=== PATIENT | male | born 1975 | race Caucasian/White ===

== ENCOUNTER → 2022-06-07 12:42 | Outpatient (BNVA) | payer OTHER, SELFPAY | PROVIDERS: PCP Family Medicine; Visit Provider Student in an Organized Health Care Education/Training Program | DX: M17.11 Unilateral primary osteoarthritis, right knee (principal); M45.9 Ankylosing spondylitis of unspecified sites in spine | CPT/HCPCS: 20610; 99202 ==

== ENCOUNTER 2022-12-11 09:46 | Outpatient (AMB) | payer OTHER, SELFPAY ==
[2022-12-11 09:49] VITALS: BP 120/72; PULSE 83; TEMP 36.3; O2SAT 95; BMI 36.8
--- NOTE | 2022-12-11 09:49 | MHC.OFFVIS ---
Intake Vital Signs 12/11/22 09:49 Height 5 ft 10 in Weight 256 lb 6.362 oz BMI 36.8 BP 120/72 Blood Pressure Location Rt brachial Position Sitting Pulse 83 Pulse Source Pulse Oximeter Temp 97.3 F Temp Source Skin Pulse Oximetry (%) 95 Intake Visit Reasons: Ankylosing spondylitis Intake Note: trouble walking lately baby stepping pain in bl knees and feet. ? increased indomethacin Motion Graphics Designer Required: No Accompanied by: Self / Same As Patient Allergies dogs,dust,grass,cats Allergy (Unknown, Uncoded 12/11/22 09:50) Unknown Medication List - Last Reconciled 12/11/22 by Melissa Rodriguez MD adalimumab (Humira(CF) Pen) inject one - 40 mg/0.4 mL pen every 2 weeks subcut albuterol sulfate 90 mcg/actuation (ProAir HFA) 2 puffs inhalation Q6H PRN folic acid 1 mg PO DAILY indomethacin 50 mg PO BEDTIME latanoprost 0.005% 1 drp ophthalmic (eye) QPM lisinopril 10 mg PO DAILY mometasone-formoterol 200-5 mcg/actuation (Dulera) 2 puffs inhalation BID omeprazole 20 mg PO DAILY oxcarbazepine 600 mg PO BID quetiapine 400 mg PO BEDTIME sulfasalazine 1.5 grams (3 x 500 mg) PO BID trifluoperazine 5 mg PO BID HPI HPI Comments History of Present Illness Details 47-year-old male with HLA B27 positive spondyloarthropathy returns for follow-up. States that the right knee cortisone injection helped him for a few months then he started having recurrent knee pain. Currently is complaining of bilateral knee pain, worse with walking. Continues to take Humira every other week, sulfasalazine 3 tabs twice daily and indomethacin nightly. Initial history: This is a 46-year-old male with past medical history of schizoaffective disorder, psoriasis, bipolar disorder and HLA B27 positive spondyloarthropathy who presents for evaluation of spondyloarthropathy. Per patient the condition started around 2005. He was initially started on indomethacin and soon after sulfasalazine was added. Patient stated that Humira was added about 2 years ago with some improvement. He states that his main complaint is right knee pain gets recurrent knee pain and swelling. Has had knee intra-articular steroid injections in the past with some relief. He states that his toes are crooked and they are hammertoes. He was evaluated by sales record clerk and was told reconstruction can be done but he would have to be off his feet for about 3 months which is difficult for the patient to do. Also has history of psoriasis. Usually below his posterior hairline, behind his ears. Currently has a patch in his scalp that is sometimes itchy. [facility] Medical History Ankylosing spondylitis Asthma Bipolar 1 disorder Chronic alcoholism in remission Hx of cocaine abuse Hypertension snf current use of anticoagulant Nicotine dependence Obesity Psoriasis Schizoaffective disorder Surgical History H/O hemorrhoidectomy History of tonsillectomy Hx of colonoscopy Family History Mother Lung cancer Parkinsonism Father Diabetes Social History Household Members Other:: lives alone Housing: Apartment Alcohol intake: former Patient Tobacco Use Status: Former Tobacco user Years Smoked: quit 2017 e-Cigarette/Vaping Use: Never Used service: No Current occupational status: disabled Review of Systems [facility] [place] Reports back pain, Reports arthralgias and Reports joint swelling Physical Exam Vital Signs: Last Vital Signs Temp 97.3 F 12/11/22 09:49 Pulse 83 12/11/22 09:49 BP 120/72 12/11/22 09:49 Pulse Ox 95 12/11/22 09:49 BMI result Body Mass Index 36.8 Const General: cooperative, healthy appearing and comfortable Nutritional Appearance: obese Orientation/consciousness: patient oriented x3 Limitations: no limitations HEENT Head: Yes normocephalic and Yes atraumatic Resp Effort & Inspection: normal respiratory effort and able to speak in complete sentences Cardio Rate: regular rate GI Inspection: No distended Palpation (GI): Soft to palpation and nontender Neuro General: patient oriented x3 Extrem Other: Bilateral knee warmth, swelling and pain with full flexion worse on the right. Bilateral hammertoes Office Procedures Joint Injection/Drain Joint Injection/Drain Primary Site: right knee Secondary Site: left knee Prep: site was prepped using sterile technique Injected: 40 mg of and Kenalog Approach Used: medial parapatellar Procedure: The patient tolerated the procedure well Coding Details: With the patient's consent the right knee was prepped with ChloraPrep and alcohol. The skin was anesthetized with 2 cc of 1% lidocaine. The knee was then injected with 40 mg of triamcinolone. Then the left knee was prepped with ChloraPrep and alcohol. The skin was anesthetized with 2 cc of 1% lidocaine. The knee was then injected with 40 mg of triamcinolone. The patient tolerated both procedures with no immediate adverse effects. 45434 - Large joint Procedure code (CPT) selection complete Assessment & Plan Assessment & Plan (1) Ankylosing spondylitis: Comment: HLA B27 + Diagnosed 2005 Code(s): M45.9 - Ankylosing spondylitis of unspecified sites in spine Plan: This is a 47-year-old male with a past medical history of HLA B27 positive spondyloarthropathy who presents for for follow-up. Currently on Humira every other week, sulfasalazine 3 tabs twice daily and indomethacin nightly. He is having bilateral knee swelling today. With patient's consent both knees were injected with Kenalog today. Continue Humira 40 mg every other week, sulfasalazine 3 tabs Twice daily and increase indomethacin 50 mg twice daily Labs before next visit in 3 months (2) High risk medication use: Code(s): Z79.899 - Other medical terminologist (current) drug therapy Plan: On sulfasalazine. Monitor labs regularly Plan I spent 26 minutes reviewing patient's chart, evaluating patient, ordering diagnostic workup, counseling patient and documenting in the chart Orders: Orders Comprehensive Met. Panel 3 Months M45.9 - Ankylosing spondylitis of unspecified sites in spine C Reactive Protein 3 Months M45.9 - Ankylosing spondylitis of unspecified sites in spine Complete Blood Count Auto Diff 3 Months M45.9 - Ankylosing spondylitis of unspecified sites in spine Erythrocyte Sedimentation Rate 3 Months M45.9 - Ankylosing spondylitis of unspecified sites in spine T Spot TB 3 Months Z11.7 - Encounter for testing for latent tuberculosis infection AMB Joint Injection/Aspiration Today M17.0 - Bilateral primary osteoarthritis of knee Medications: Changed From indomethacin 50 mg PO BEDTIME 30 caps 2RF To indomethacin 50 mg PO BID 60 caps 2RF Coding Level of Care Code Est Pt Level 4 (02146) Diagnoses Ankylosing spondylitis M45.9 High risk medication use Z79.899 CPT Codes Coding - 97477 Large joint: 24874 - Large joint ([id number])
== END 2022-12-11 10:52 | disposition home or self-care (01) ==
PROVIDERS: Visit Provider Student in an Organized Health Care Education/Training Program
DX: M45.9 Ankylosing spondylitis of unspecified sites in spine (principal); Z79.899 Other long term (current) drug therapy; M17.0 Bilateral primary osteoarthritis of knee
CPT/HCPCS: 20610; 99214

== ENCOUNTER → 2022-12-11 09:46 | Outpatient (BNVA) | payer OTHER, SELFPAY | PROVIDERS: Visit Provider Student in an Organized Health Care Education/Training Program | DX: M54.9 Dorsalgia, unspecified (principal); Z79.899 Other long term (current) drug therapy | CPT/HCPCS: 20610; 99212 ==

== ENCOUNTER 2023-03-14 12:52 | Outpatient (AMB) | payer OTHER, SELFPAY ==
[2023-03-14 12:56] VITALS: BP 112/70; PULSE 111; TEMP 36.2; O2SAT 96; BMI 35.7
--- NOTE | 2023-03-14 12:56 | MHC.OFFVIS ---
Intake Vital Signs 03/14/23 12:56 Height 5 ft 10 in Weight 248 lb 10.903 oz BMI 35.7 BP 112/70 Blood Pressure Location Rt brachial Position Sitting Pulse 111 H Pulse Source Pulse Oximeter Temp 97.2 F Temp Source Skin Pulse Oximetry (%) 96 Intake Visit Reasons: Intake Note: Pt last seen 12/11/22, presents today for follow up and test results. Clinical Researcher Required: No Accompanied by: Self / Same As Patient Allergies dogs,dust,grass,cats Allergy (Unknown, Uncoded 03/14/23 12:58) Unknown Medication List - Last Reconciled 03/14/23 by Melissa Rodriguez MD adalimumab (Humira(CF) Pen) inject one - 40 mg/0.4 mL pen every 2 weeks subcut albuterol sulfate 90 mcg/actuation (ProAir HFA) 2 puffs inhalation Q6H PRN folic acid 1 mg PO DAILY indomethacin 50 mg PO BID latanoprost 0.005% 1 drp ophthalmic (eye) QPM lisinopril 10 mg PO DAILY mometasone-formoterol 200-5 mcg/actuation (Dulera) 2 puffs inhalation BID omeprazole 20 mg PO DAILY oxcarbazepine 600 mg PO BID quetiapine 400 mg PO BEDTIME sulfasalazine 1.5 grams (3 x 500 mg) PO BID trifluoperazine 5 mg PO BID HPI HPI Comments History of Present Illness Details 47-year-old male with HLA B27 positive spondyloarthropathy returns for follow-up. States that he is doing well overall with regards to his joint pain. He is having bilateral knee swelling but it does not hurt much. States that he does not feel like he needs knee injections today. He states that he has been having some problems with his addiction recently. States that he is compliant with Humira every 2 weeks but sometimes misses the sulfasalazine and indomethacin. Initial history: This is a 46-year-old male with past medical history of schizoaffective disorder, psoriasis, bipolar disorder and HLA B27 positive spondyloarthropathy who presents for evaluation of spondyloarthropathy. Per patient the condition started around 2005. He was initially started on indomethacin and soon after sulfasalazine was added. Patient stated that Humira was added about 2 years ago with some improvement. He states that his main complaint is right knee pain gets recurrent knee pain and swelling. Has had knee intra-articular steroid injections in the past with some relief. He states that his toes are crooked and they are hammertoes. He was evaluated by graphic pre press trades worker and was told reconstruction can be done but he would have to be off his feet for about 3 months which is difficult for the patient to do. Also has history of psoriasis. Usually below his posterior hairline, behind his ears. Currently has a patch in his scalp that is sometimes itchy. 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 Ankylosing spondylitis Asthma Hypertension Chronic alcoholism in remission Bipolar 1 disorder Schizoaffective disorder Obesity Surgical History H/O hemorrhoidectomy History of tonsillectomy Hx of colonoscopy Family History Mother Lung cancer Parkinsonism Father Diabetes Social History Household Members Other:: lives alone Housing: Apartment Alcohol intake: former Patient Tobacco Use Status: Former Tobacco user Years Smoked: quit 2017 e-Cigarette/Vaping Use: Never Used Substance Use Type: Crack/Cocaine service: No Current occupational status: disabled Review of Systems [facility] [place] Reports arthralgias and Reports joint swelling Physical Exam Vital Signs: Last Vital Signs Temp 97.2 F 03/14/23 12:56 Pulse 111 H 03/14/23 12:56 BP 112/70 03/14/23 12:56 Pulse Ox 96 03/14/23 12:56 BMI result Body Mass Index 35.7 Const General: cooperative, healthy appearing and comfortable Nutritional Appearance: obese Orientation/consciousness: patient oriented x3 Limitations: no limitations HEENT Head: Yes normocephalic and Yes atraumatic Resp Effort & Inspection: normal respiratory effort and able to speak in complete sentences Cardio Rate: regular rate GI Inspection: No distended Palpation (GI): Soft to palpation and nontender Neuro General: patient oriented x3 Extrem Other: Bilateral knee warmth, swelling and pain with full flexion Bilateral hammertoes Assessment & Plan Assessment & Plan (1) Ankylosing spondylitis: Comment: HLA B27 + Diagnosed 2005 Code(s): M45.9 - Ankylosing spondylitis of unspecified sites in spine Qualifiers: Ankylosing spondylitis location: multiple sites in spine Qualified Code(s): M45.0 - Ankylosing spondylitis of multiple sites in spine Plan: This is a 47-year-old male with a past medical history of HLA B27 positive spondyloarthropathy who presents for for follow-up. Currently on Humira every other week, sulfasalazine 3 tabs twice daily and indomethacin nightly. On exam he continues to have bilateral knee swelling. Inflammatory markers are elevated. Will need to advance DMARDs. Advance Humira to 40 mg every week. Continue with sulfasalazine 3 tabs Twice daily and indomethacin 50 mg twice daily Labs before next visit in 3 months (2) High risk medication use: Code(s): Z79.899 - Other jail (current) drug therapy Plan: On sulfasalazine. Monitor labs regularly Plan I spent 26 minutes reviewing patient's chart, evaluating patient, ordering diagnostic workup, counseling patient and documenting in the chart Orders: Orders Complete Blood Count Auto Diff 3 Months M45.9 - Ankylosing spondylitis of unspecified sites in spine Comprehensive Met. Panel 3 Months M45.9 - Ankylosing spondylitis of unspecified sites in spine C Reactive Protein 3 Months M45.9 - Ankylosing spondylitis of unspecified sites in spine Erythrocyte Sedimentation Rate 3 Months M45.9 - Ankylosing spondylitis of unspecified sites in spine Medications: Refilled sulfasalazine give with food (meal/snack) 1.5 grams (3 x 500 mg) PO BID 540 tabs 1RF Coding Level of Care Code Est Pt Level 4 (19393) Diagnoses Ankylosing spondylitis of multiple sites in spine M45.0 Ankylosing spondylitis location: multiple sites in spine High risk medication use Z79.899
== END 2023-03-14 13:30 | disposition home or self-care (01) ==
PROVIDERS: PCP Family Medicine; Referring Provider Family Medicine; Visit Provider Student in an Organized Health Care Education/Training Program
DX: M45.0 Ankylosing spondylitis of multiple sites in spine (principal); Z79.899 Other long term (current) drug therapy
CPT/HCPCS: 99214

== ENCOUNTER → 2023-03-14 12:52 | Outpatient (BNVA) | payer OTHER, SELFPAY | PROVIDERS: PCP Family Medicine; Referring Provider Family Medicine; Visit Provider Student in an Organized Health Care Education/Training Program | DX: M45.0 Ankylosing spondylitis of multiple sites in spine (principal); Z79.899 Other long term (current) drug therapy | CPT/HCPCS: 99212 ==

== ENCOUNTER 2023-07-01 14:15 | Outpatient (AMB) | payer OTHER, SELFPAY ==
[2023-07-01 14:41] VITALS: BP 124/68; PULSE 87; TEMP 36.3; O2SAT 95; BMI 37.5
--- NOTE | 2023-07-01 14:41 | MHC.OFFVIS ---
Intake Vital Signs 07/01/23 14:41 Height 5 ft 10 in Weight 261 lb 3.964 oz BMI 37.5 BP 124/68 Blood Pressure Location Lt brachial Position Sitting Pulse 87 Pulse Source Pulse Oximeter Temp 97.4 F Temp Source Skin Pulse Oximetry (%) 95 Oxygen Delivery Method Room Air Intake Visit Reasons: Intake Note: Patient last seen 03/14/23 presents today for follow up and test results. Reports he was in detox then had covid. The last time he used Humira was 05/24. 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 Worker Required: No Accompanied by: Self / Same As Patient Allergies dogs,dust,grass,cats Allergy (Unknown, Uncoded 07/01/23 14:44) Unknown Medication List - Last Reconciled 07/01/23 by Melissa Rodriguez MD albuterol sulfate 90 mcg/actuation (ProAir HFA) 2 puffs inhalation Q6H PRN folic acid 1 mg PO DAILY Humira(CF) Pen (adalimumab) 40 mg (0.4 mL) subcut QWEEK NS indomethacin 50 mg PO BID latanoprost 0.005% 1 drp ophthalmic (eye) QPM lisinopril 10 mg PO DAILY mometasone-formoterol 200-5 mcg/actuation (Dulera) 2 puffs inhalation BID omeprazole 20 mg PO DAILY oxcarbazepine 600 mg PO BID quetiapine 400 mg PO BEDTIME sulfasalazine 1.5 grams (3 x 500 mg) PO BID trifluoperazine 5 mg PO BID HPI HPI Comments History of Present Illness Details 47-year-old male with HLA B27 positive spondyloarthropathy returns for follow-up. Patient states that his last Humira dose was 05/24/2023. He was doing the Humira injections weekly. He had been doing fairly well until 05/24. Patient had a relapse of cocaine use, he went into detox, then had COVID infection followed by COVID vaccination. Has been taking the sulfasalazine and indomethacin regularly. States that he feels muscle cramping in his lower back whenever he reaches to touch his feet. Initial history: This is a 46-year-old male with past medical history of schizoaffective disorder, psoriasis, bipolar disorder and HLA B27 positive spondyloarthropathy who presents for evaluation of spondyloarthropathy. Per patient the condition started around 2005. He was initially started on indomethacin and soon after sulfasalazine was added. Patient stated that Humira was added about 2 years ago with some improvement. He states that his main complaint is right knee pain gets recurrent knee pain and swelling. Has had knee intra-articular steroid injections in the past with some relief. He states that his toes are crooked and they are hammertoes. He was evaluated by blacksmith assistant and was told reconstruction can be done but he would have to be off his feet for about 3 months which is difficult for the patient to do. Also has history of psoriasis. Usually below his posterior hairline, behind his ears. Currently has a patch in his scalp that is sometimes itchy. 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 Ankylosing spondylitis Asthma Hypertension Chronic alcoholism in remission Bipolar 1 disorder Schizoaffective disorder Obesity Surgical History H/O hemorrhoidectomy History of tonsillectomy Hx of colonoscopy Family History Mother Lung cancer Parkinsonism Father Diabetes Social History Household Members Other:: lives alone Housing: Apartment Alcohol intake: former Patient Tobacco Use Status: Former Tobacco user Years Smoked: quit 2017 e-Cigarette/Vaping Use: Never Used Substance Use Type: Crack/Cocaine service: No Current occupational status: disabled Review of Systems [facility] Reports arthralgias, Denies joint swelling, Reports muscle cramps and Reports stiffness Physical Exam Vital Signs: Last Vital Signs Temp 97.4 F 07/01/23 14:41 Pulse 87 07/01/23 14:41 BP 124/68 07/01/23 14:41 Pulse Ox 95 07/01/23 14:41 Oxygen Delivery Method Room Air 07/01/23 14:41 BMI result Body Mass Index 37.5 Const General: cooperative, healthy appearing and comfortable Nutritional Appearance: obese Orientation/consciousness: patient oriented x3 Limitations: no limitations HEENT Head: Yes normocephalic and Yes atraumatic Resp Effort & Inspection: normal respiratory effort and able to speak in complete sentences Cardio Rate: regular rate GI Inspection: No distended Palpation (GI): Soft to palpation and nontender Neuro General: patient oriented x3 Extrem Other: No knee tenderness or swelling bilaterally Negative straight leg raise test bilaterally Negative SALOMÓN test bilaterally Bilateral hammertoes Assessment & Plan Assessment & Plan (1) Ankylosing spondylitis: Comment: HLA B27 + Diagnosed 2005 Code(s): M45.9 - Ankylosing spondylitis of unspecified sites in spine Qualifiers: Ankylosing spondylitis location: multiple sites in spine Qualified Code(s): M45.0 - Ankylosing spondylitis of multiple sites in spine Plan: This is a 47-year-old male with HLA B27 positive spondyloarthropathy who presents for for follow-up. Patient's last Humira dose was 05/24/2023 as he went into detox then had COVID infection followed by vaccination. There are no swollen joints today. Inflammatory markers trending down Restart Humira to 40 mg every week. Continue with sulfasalazine 3 tabs Twice daily and indomethacin 50 mg twice daily Labs before next visit in 3 months (2) High risk medication use: Code(s): Z79.899 - Other longterm (current) drug therapy Plan: On sulfasalazine. Monitor labs regularly Plan I spent 26 minutes reviewing patient's chart, evaluating patient, ordering diagnostic workup, counseling patient and documenting in the chart Orders: Orders Complete Blood Count Auto Diff 3 Months M45.9 - Ankylosing spondylitis of unspecified sites in spine Comprehensive Met. Panel 3 Months M45.9 - Ankylosing spondylitis of unspecified sites in spine C Reactive Protein 3 Months M45.9 - Ankylosing spondylitis of unspecified sites in spine Erythrocyte Sedimentation Rate 3 Months M45.9 - Ankylosing spondylitis of unspecified sites in spine Coding Level of Care Code Est Pt Level 4 (48979) Diagnoses Ankylosing spondylitis of multiple sites in spine M45.0 Ankylosing spondylitis location: multiple sites in spine High risk medication use Z79.899
== END 2023-07-01 15:07 | disposition home or self-care (01) ==
PROVIDERS: PCP Family Medicine; Visit Provider Student in an Organized Health Care Education/Training Program
DX: M45.0 Ankylosing spondylitis of multiple sites in spine (principal); Z79.899 Other long term (current) drug therapy
CPT/HCPCS: 99214

== ENCOUNTER → 2023-07-01 14:15 | Outpatient (BNVA) | payer OTHER, SELFPAY | PROVIDERS: PCP Family Medicine; Visit Provider Student in an Organized Health Care Education/Training Program | DX: M45.0 Ankylosing spondylitis of multiple sites in spine (principal); Z79.899 Other long term (current) drug therapy | CPT/HCPCS: 99212 ==

== ENCOUNTER 2023-09-23 13:59 | Outpatient (AMB) | payer OTHER, SELFPAY ==
--- NOTE | 2023-09-23 14:10 | MHC.OFFVIS ---
Vital Signs 09/23/23 14:20 Height 5 ft 10 in Weight 267 lb 3.204 oz BMI 38.3 BP 124/72 Blood Pressure Location Rt brachial Position Sitting Pulse 86 Pulse Source Pulse Oximeter Pulse Oximetry (%) 96 Oxygen Delivery Method Room Air Intake Visit Reasons: Intake Note: Patient last seen 07/01/23 presents today for follow up and test results. Pad Machine Operator Required: No Accompanied by: Self / Same As Patient Allergies dogs,dust,grass,cats Allergy (Unknown, Uncoded 09/23/23 14:20) Unknown Medication List - Last Reconciled 09/23/23 by Melissa Rodriguez MD albuterol sulfate 90 mcg/actuation (ProAir HFA) 2 puffs inhalation Q6H PRN folic acid 1 mg PO DAILY Humira(CF) Pen (adalimumab) 40 mg (0.4 mL) subcut QWEEK NS indomethacin 50 mg PO BID latanoprost 0.005% 1 drp ophthalmic (eye) QPM lisinopril 10 mg PO DAILY mometasone-formoterol 200-5 mcg/actuation (Dulera) 2 puffs inhalation BID omeprazole 20 mg PO DAILY oxcarbazepine 600 mg PO BID quetiapine 400 mg PO BEDTIME sulfasalazine 1.5 grams (3 x 500 mg) PO BID trifluoperazine 5 mg PO BID HPI Comments Details: 47-year-old male with HLA B27 positive spondyloarthropathy returns for follow-up. He is compliant with Humira weekly, sulfasalazine 3 g a day and indomethacin 50 mg Twice daily. States that he is doing quite well overall. His knees are doing better. Denies any painful or swollen joints today. Initial history: This is a 46-year-old male with past medical history of schizoaffective disorder, psoriasis, bipolar disorder and HLA B27 positive spondyloarthropathy who presents for evaluation of spondyloarthropathy. Per patient the condition started around 2005. He was initially started on indomethacin and soon after sulfasalazine was added. Patient stated that Humira was added about 2 years ago with some improvement. He states that his main complaint is right knee pain gets recurrent knee pain and swelling. Has had knee intra-articular steroid injections in the past with some relief. He states that his toes are crooked and they are hammertoes. He was evaluated by horse breaker and was told reconstruction can be done but he would have to be off his feet for about 3 months which is difficult for the patient to do. Also has history of psoriasis. Usually below his posterior hairline, behind his ears. Currently has a patch in his scalp that is sometimes itchy. 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 Ankylosing spondylitis Asthma Hypertension Chronic alcoholism in remission Bipolar 1 disorder Schizoaffective disorder Obesity Surgical History H/O hemorrhoidectomy History of tonsillectomy Hx of colonoscopy Family History Mother Lung cancer Parkinsonism Father Diabetes Social History Household Members Other:: lives alone Housing: Apartment Alcohol intake: former Patient Tobacco Use Status: Former Tobacco user Years Smoked: quit 2017 e-Cigarette/Vaping Use: Never Used Substance Use Type: Crack/Cocaine service: No Current occupational status: disabled Review of Systems Musc Denies arthralgias, Denies joint swelling and Denies stiffness Physical Exam Vital Signs: Last Vital Signs Pulse 86 09/23/23 14:20 BP 124/72 09/23/23 14:20 Pulse Ox 96 09/23/23 14:20 Oxygen Delivery Method Room Air 09/23/23 14:20 BMI result Body Mass Index 38.3 Const General: cooperative, healthy appearing and comfortable Nutritional Appearance: obese Orientation/consciousness: patient oriented x3 Limitations: no limitations HEENT Head: Yes normocephalic and Yes atraumatic Resp Effort & Inspection: normal respiratory effort and able to speak in complete sentences Cardio Rate: regular rate GI Inspection: No distended Palpation (GI): Soft to palpation and nontender Neuro General: patient oriented x3 Extrem Other: Bilateral knee warmth but no tenderness or swelling bilaterally. Bilateral knee pain with full flexion and extension No active synovitis both hands and wrists Negative straight leg raise test bilaterally Negative SALOMÓN test bilaterally Bilateral hammertoes Assessment & Plan Assessment & Plan (1) Ankylosing spondylitis: Comment: HLA B27 + Diagnosed 2005 Code(s): M45.9 - Ankylosing spondylitis of unspecified sites in spine Category: Medical Qualifiers: Ankylosing spondylitis location: multiple sites in spine Qualified Code(s): M45.0 - Ankylosing spondylitis of multiple sites in spine Plan: This is a 47-year-old male with HLA B27 positive spondyloarthropathy who presents for for follow-up. On Humira 40 mg weekly, sulfasalazine 3 g daily and indomethacin 50 mg Twice daily. Doing quite well overall. Continue current meds Labs before next visit in 3 months (2) High risk medication use: Code(s): Z79.899 - Other terminal system operator (current) drug therapy Category: Medical Plan: On sulfasalazine. Monitor labs regularly (3) Bilateral primary osteoarthritis of knee: Code(s): M17.0 - Bilateral primary osteoarthritis of knee Category: Medical Plan: Patient used to get steroid injections every few months. Today his knees are doing better. Advised patient to call the office if his start to hurt. Plan I spent 26 minutes reviewing patient's chart, evaluating patient, ordering diagnostic workup, counseling patient and documenting in the chart Orders: Orders Complete Blood Count Auto Diff 3 Months M45.0 - Ankylosing spondylitis of multiple sites in spine Comprehensive Met. Panel 3 Months M45.0 - Ankylosing spondylitis of multiple sites in spine Erythrocyte Sedimentation Rate 3 Months M45.0 - Ankylosing spondylitis of multiple sites in spine C Reactive Protein 3 Months M45.0 - Ankylosing spondylitis of multiple sites in spine Coding Level of Care Code Est Pt Level 4 (69817) Diagnoses Ankylosing spondylitis of multiple sites in spine M45.0 Ankylosing spondylitis location: multiple sites in spine High risk medication use Z79.899 Bilateral primary osteoarthritis of knee M17.0
[2023-09-23 14:20] VITALS: BP 124/72; PULSE 86; O2SAT 96; BMI 38.3
== END 2023-09-23 14:50 | disposition home or self-care (01) ==
PROVIDERS: PCP Family Medicine; Visit Provider Student in an Organized Health Care Education/Training Program
DX: M45.0 Ankylosing spondylitis of multiple sites in spine (principal); Z79.899 Other long term (current) drug therapy; M17.0 Bilateral primary osteoarthritis of knee
CPT/HCPCS: 99214

== ENCOUNTER → 2023-09-23 13:59 | Outpatient (BNVA) | payer OTHER, SELFPAY | PROVIDERS: PCP Family Medicine; Visit Provider Student in an Organized Health Care Education/Training Program | DX: M45.0 Ankylosing spondylitis of multiple sites in spine (principal); M17.0 Bilateral primary osteoarthritis of knee; Z79.899 Other long term (current) drug therapy | CPT/HCPCS: 99212 ==

== ENCOUNTER 2023-12-30 14:02 | Outpatient (AMB) | payer OTHER, SELFPAY ==
--- NOTE | 2023-12-30 14:12 | MHC.OFFVIS ---
Vital Signs 12/30/23 14:17 Height 5 ft 10 in Weight 269 lb BMI 38.6 BP 132/80 Blood Pressure Location Lt brachial Position Sitting Pulse 94 Pulse Source Pulse Oximeter Pulse Oximetry (%) 99 Oxygen Delivery Method Room Air Intake Visit Reasons: Intake Note: Patient last seen by Doctor Melissa Rodriguez on 09/23/23. Patient presents today for follow up and test results. Allergies dogs,dust,grass,cats Allergy (Unknown, Uncoded 12/30/23 14:12) Unknown Medication List - Last Reconciled 12/30/23 by Melissa Rodriguez MD albuterol sulfate 90 mcg/actuation (ProAir HFA) 2 puffs inhalation Q6H PRN folic acid 1 mg PO DAILY Humira(CF) Pen (adalimumab) 0.4 mg (0.004 mL) subcut QWEEK NS indomethacin 50 mg PO BID latanoprost 0.005% 1 drp ophthalmic (eye) QPM lisinopril 10 mg PO DAILY mometasone-formoterol 200-5 mcg/actuation (Dulera) 2 puffs inhalation BID omeprazole 20 mg PO DAILY oxcarbazepine 600 mg PO BID quetiapine 400 mg PO BEDTIME sulfasalazine 1,500 mg (3 x 500 mg) PO BID trifluoperazine 5 mg PO BID HPI Comments Details: 48-year-old male with HLA B27 positive spondyloarthropathy returns for follow-up. He is compliant with Humira weekly, sulfasalazine 3 g a day and indomethacin 50 mg Twice daily. States that he is doing relatively well overall but his knees have been hurting and stiff recently. But they are not swollen. Requesting injections Initial history: This is a 46-year-old male with past medical history of schizoaffective disorder, psoriasis, bipolar disorder and HLA B27 positive spondyloarthropathy who presents for evaluation of spondyloarthropathy. Per patient the condition started around 2005. He was initially started on indomethacin and soon after sulfasalazine was added. Patient stated that Humira was added about 2 years ago with some improvement. He states that his main complaint is right knee pain gets recurrent knee pain and swelling. Has had knee intra-articular steroid injections in the past with some relief. He states that his toes are crooked and they are hammertoes. He was evaluated by housing liaison and was told reconstruction can be done but he would have to be off his feet for about 3 months which is difficult for the patient to do. Also has history of psoriasis. Usually below his posterior hairline, behind his ears. Currently has a patch in his scalp that is sometimes itchy. 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 Reports arthralgias, Denies joint swelling, Reports limited range of motion and Reports stiffness Physical Exam Vital Signs: Last Vital Signs Pulse 94 12/30/23 14:17 BP 132/80 12/30/23 14:17 Pulse Ox 99 12/30/23 14:17 Oxygen Delivery Method Room Air 12/30/23 14:17 BMI result Body Mass Index 38.6 Const General: cooperative, healthy appearing and comfortable Nutritional Appearance: obese Orientation/consciousness: patient oriented x3 Limitations: no limitations HEENT Head: Yes normocephalic and Yes atraumatic Resp Effort & Inspection: normal respiratory effort and able to speak in complete sentences Cardio Rate: regular rate GI Inspection: No distended Palpation (GI): Soft to palpation and nontender Neuro General: patient oriented x3 Extrem Other: Bilateral knee pain with full flexion and extension , no warmth or swelling, bilateral limited range of motion of knees No active synovitis both hands and wrists Negative straight leg raise test bilaterally Negative SALOMÓN test bilaterally Bilateral hammertoes Office Procedures Joint Injection/Aspiration Joint Injection/Aspiration Primary Site: right knee Secondary Site: left knee Prep: site was prepped using sterile technique and ethochloride spray was applied Injected: 40 mg of, Kenalog, with 1 mL of, 1% plain lidocaine and in the joint Approach Used: medial parapatellar Procedure: The patient tolerated the procedure well Coding Details: With the patient's consent the right knee was prepped with ChloraPrep and alcohol. The skin was anesthetized with 2 cc of 1% lidocaine. The knee was then injected with 40 mg of triamcinolone and 1 cc of I % lidocaine. Then, the left knee was prepped with ChloraPrep and alcohol. The skin was anesthetized with 2 cc of 1% lidocaine. The knee was then injected with 40 mg of triamcinolone and 1 cc of I % lidocaine. The patient tolerated both procedures well with no immediate apparent adverse events - Large joint Procedure code (CPT) selection complete (Large joint x2) Assessment & Plan Assessment & Plan (1) Ankylosing spondylitis: Comment: HLA B27 + Diagnosed 2005 Code(s): M45.9 - Ankylosing spondylitis of unspecified sites in spine Category: Medical Qualifiers: Ankylosing spondylitis location: multiple sites in spine Qualified Code(s): M45.0 - Ankylosing spondylitis of multiple sites in spine Plan: This is a 48-year-old male with HLA B27 positive spondyloarthropathy who presents for for follow-up. On Humira 40 mg weekly, sulfasalazine 3 g daily and indomethacin 50 mg Twice daily. Doing quite well overall. Continue current meds. His symptoms today are likely due to degenerative arthritis of his knee Labs before next visit in 3 months (2) High risk medication use: Code(s): Z79.899 - Other snf (current) drug therapy Category: Medical Plan: On sulfasalazine. Monitor labs regularly (3) Bilateral primary osteoarthritis of knee: Code(s): M17.0 - Bilateral primary osteoarthritis of knee Category: Medical Plan: Patient gets bilateral knee steroid injections every few months. Last injection was about 6 months ago. They are starting to become symptomatic again today. Requesting injections. With patient's consent. Both knees were injected with Kenalog Plan I spent 36 minutes reviewing patient's chart, evaluating patient, ordering diagnostic workup, counseling patient and documenting in the chart Orders: Orders Complete Blood Count Auto Diff 3 Months M45.0 - Ankylosing spondylitis of multiple sites in spine Comprehensive Met. Panel 3 Months M45.0 - Ankylosing spondylitis of multiple sites in spine Erythrocyte Sedimentation Rate 3 Months M45.0 - Ankylosing spondylitis of multiple sites in spine AMB Joint Injection/Aspiration Today M17.0 - Bilateral primary osteoarthritis of knee C Reactive Protein 3 Months M45.0 - Ankylosing spondylitis of multiple sites in spine Coding Level of Care Code Est Pt Level 4 (26335) Diagnoses Ankylosing spondylitis of multiple sites in spine M45.0 Ankylosing spondylitis location: multiple sites in spine High risk medication use Z79.899 Bilateral primary osteoarthritis of knee M17.0 CPT Codes Coding - 34782 Large joint: 40509 - Large joint ([id number])
[2023-12-30 14:17] VITALS: BP 132/80; PULSE 94; O2SAT 99; BMI 38.6
== END 2023-12-30 15:00 | disposition home or self-care (01) ==
PROVIDERS: PCP Family Medicine; Visit Provider Student in an Organized Health Care Education/Training Program
DX: M45.0 Ankylosing spondylitis of multiple sites in spine (principal); Z79.899 Other long term (current) drug therapy; M17.0 Bilateral primary osteoarthritis of knee
CPT/HCPCS: 20610; 99214

== ENCOUNTER → 2023-12-30 14:02 | Outpatient (BNVA) | payer OTHER, SELFPAY | PROVIDERS: PCP Family Medicine; Visit Provider Student in an Organized Health Care Education/Training Program | DX: M45.0 Ankylosing spondylitis of multiple sites in spine (principal); M17.0 Bilateral primary osteoarthritis of knee; Z79.620 Long term (current) use of immunosuppressive biologic | CPT/HCPCS: 20610; 99212; J2003; J3301 ==

== ENCOUNTER 2024-04-20 14:36 | Outpatient (AMB) | payer OTHER, SELFPAY ==
--- NOTE | 2024-04-20 15:03 | A.OFFVIS_ITS ---
Vital Signs 04/20/24 15:07 Height 5 ft 10 in Weight 273 lb 5.971 oz BMI 39.2 BP 120/80 Blood Pressure Location Rt brachial Position Sitting Pulse 84 Pulse Source Pulse Oximeter Pulse Oximetry (%) 98 Oxygen Delivery Method Room Air Intake Visit Reasons: Intake Note: Patient presents for . Allergies dogs,dust,grass,cats Allergy (Unknown, Uncoded 12/30/23 14:12) Unknown Medication List - Last Reconciled 04/20/24 by Melissa Rodriguez MD albuterol sulfate 90 mcg/actuation (ProAir HFA) 2 puffs inhalation Q6H PRN folic acid 1 mg PO DAILY Humira(CF) Pen (adalimumab) 40 mg (0.4 mL) subcut QWEEK NS indomethacin 50 mg PO BID latanoprost 0.005% 1 drp ophthalmic (eye) QPM lisinopril 10 mg PO DAILY mometasone-formoterol 200-5 mcg/actuation (Dulera) 2 puffs inhalation BID omeprazole 20 mg PO DAILY oxcarbazepine 600 mg PO BID quetiapine 400 mg PO BEDTIME sulfasalazine 1,500 mg (3 x 500 mg) PO BID trifluoperazine 5 mg PO BID HPI Comments Details: 48-year-old male with HLA B27 positive spondyloarthropathy returns for follow- up. He is compliant with Humira weekly, sulfasalazine 3 g a day and indomethacin 50 mg Twice daily. States that he is doing relatively well, knee injections done last visit were quite helpful. Initial history: This is a 46-year-old male with past medical history of schizoaffective disorder, psoriasis, bipolar disorder and HLA B27 positive spondyloarthropathy who presents for evaluation of spondyloarthropathy. Per patient the condition started around 2005. He was initially started on indomethacin and soon after sulfasalazine was added. Patient stated that Humira was added about 2 years ago with some improvement. He states that his main complaint is right knee pain gets recurrent knee pain and swelling. Has had knee intra-articular steroid injections in the past with some relief. He states that his toes are crooked and they are hammertoes. He was evaluated by harness builder and was told reconstruction can be done but he would have to be off his feet for about 3 months which is difficult for the patient to do. Also has history of psoriasis. Usually below his posterior hairline, behind his ears. Currently has a patch in his scalp that is sometimes itchy. 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 Ankylosing spondylitis Asthma Hypertension Chronic alcoholism in remission Bipolar 1 disorder Schizoaffective disorder Obesity Surgical History H/O hemorrhoidectomy History of tonsillectomy Hx of colonoscopy Family History Mother Lung cancer Parkinsonism Father Diabetes Social History Household Members Other:: lives alone Housing: Apartment Alcohol intake: former Patient Tobacco Use Status: Former Tobacco user Years Smoked: quit 2017 e-Cigarette/Vaping Use: Never Used Substance Use Type: Crack/Cocaine service: No Current occupational status: disabled Review of Systems Musc Denies joint swelling, Reports limited range of motion and Reports stiffness Physical Exam Vital Signs: Last Vital Signs Pulse 84 04/20/24 15:07 BP 120/80 04/20/24 15:07 Pulse Ox 98 04/20/24 15:07 Oxygen Delivery Method Room Air 04/20/24 15:07 BMI result Body Mass Index 39.2 Const General: cooperative, healthy appearing and comfortable Nutritional Appearance: obese Orientation/consciousness: patient oriented x3 Limitations: no limitations HEENT Head: Yes normocephalic and Yes atraumatic Resp Effort & Inspection: normal respiratory effort and able to speak in complete sentences Cardio Rate: regular rate GI Inspection: No distended Palpation (GI): Soft to palpation and nontender Neuro General: patient oriented x3 Extrem Other: Bilateral knee pain with full flexion and extension , no warmth or swelling, bilateral limited range of motion of knees No active synovitis both hands and wrists Negative straight leg raise test bilaterally Negative SALOMÓN test bilaterally Bilateral hammertoes Assessment & Plan Assessment & Plan (1) Ankylosing spondylitis: Comment: HLA B27 + Diagnosed 2005 Code(s): M45.9 - Ankylosing spondylitis of unspecified sites in spine Category: Medical Qualifiers: Ankylosing spondylitis location: multiple sites in spine Qualified Code(s): M45.0 - Ankylosing spondylitis of multiple sites in spine Plan: This is a 48-year-old male with HLA B27 positive spondyloarthropathy who presents for for follow-up. On Humira 40 mg weekly, sulfasalazine 3 g daily and indomethacin 50 mg Twice daily. Doing quite well overall. Continue current meds. Patient states that he got a letter in the mail from his insurance company that they will not cover indomethacin. Advised patient to send that letter over to us Labs before next visit in 4 months (2) High risk medication use: Code(s): Z79.899 - Other care home (current) drug therapy Category: Medical Plan: On sulfasalazine. Monitor labs regularly Side effects of Humira were discussed with the patient in detail including increased risk of infection, demyelinating disease, reactivation of latent TB, possible increased risk of solid and skin tumors. Patient fully aware. Advised patient to seek medical care KE if patient has an infection and advised patient to stop the medication until the infection is resolved. (3) Bilateral primary osteoarthritis of knee: Code(s): M17.0 - Bilateral primary osteoarthritis of knee Category: Medical Plan: Patient gets bilateral knee steroid injections periodically. Doing well today injections done last visit were quite helpful. Plan I spent 26 minutes reviewing patient's chart, evaluating patient, ordering diagnostic workup, counseling patient and documenting in the chart Orders: Orders Comprehensive Met. Panel 4 Months M45.0 - Ankylosing spondylitis of multiple sites in spine, Z79.899 - Other care home (current) drug therapy Hepatitis A,B,C Profile 4 Months Z11.59 - Encounter for screening for other viral diseases T Spot TB 4 Months Z11.7 - Encounter for testing for latent tuberculosis infection Complete Blood Count Auto Diff 4 Months M45.0 - Ankylosing spondylitis of multiple sites in spine, Z79.899 - Other care home (current) drug therapy C Reactive Protein 4 Months M45.0 - Ankylosing spondylitis of multiple sites in spine, Z79.899 - Other long term acute care registered nurse (current) drug therapy Erythrocyte Sedimentation Rate 4 Months M45.0 - Ankylosing spondylitis of multiple sites in spine, Z79.899 - Other long term acute care registered nurse (current) drug therapy Coding Level of Care Code Est Pt Level 4 (97065) Complex EM visit Add On G2211 Diagnoses Ankylosing spondylitis of multiple sites in spine M45.0 Ankylosing spondylitis location: multiple sites in spine High risk medication use Z79.899 Bilateral primary osteoarthritis of knee M17.0
[2024-04-20 15:07] VITALS: BP 120/80; PULSE 84; O2SAT 98; BMI 39.2
== END 2024-04-20 15:43 | disposition home or self-care (01) ==
PROVIDERS: PCP Family Medicine; Visit Provider Student in an Organized Health Care Education/Training Program
DX: M45.0 Ankylosing spondylitis of multiple sites in spine (principal); Z79.899 Other long term (current) drug therapy; M17.0 Bilateral primary osteoarthritis of knee
CPT/HCPCS: 99214; G2211

== ENCOUNTER → 2024-04-20 14:36 | Outpatient (BNVA) | payer OTHER, SELFPAY | PROVIDERS: PCP Family Medicine; Visit Provider Student in an Organized Health Care Education/Training Program | DX: M45.0 Ankylosing spondylitis of multiple sites in spine (principal); M17.0 Bilateral primary osteoarthritis of knee; Z79.899 Other long term (current) drug therapy | CPT/HCPCS: 99212 ==

== ENCOUNTER 2024-07-30 13:39 | Outpatient (AMB) | payer OTHER, SELFPAY ==
[2024-07-30 13:41] VITALS: BP 120/74; PULSE 95; O2SAT 98; BMI 37.5
--- NOTE | 2024-07-30 13:41 | A.OFFVIS_ITS ---
Vital Signs 07/30/24 13:41 Height 5 ft 10 in Weight 261 lb 7.492 oz BMI 37.5 BP 120/74 Blood Pressure Location Lt brachial Position Sitting Pulse 95 Pulse Source Pulse Oximeter Pulse Oximetry (%) 98 Oxygen Delivery Method Room Air Intake Visit Reasons: Intake Note: Patient presents today for follow up of ankylosing spondylitis and lab review. He was last seen in the office on04/20/24. Allergies dogs,dust,grass,cats Allergy (Unknown, Uncoded 07/30/24 13:44) Unknown Medication List - Last Reconciled 07/30/24 by Daisy Schuster MD brimonidine 0.2% drps ophthalmic (eye) Humira(CF) Pen (adalimumab) 40 mg (0.4 mL) subcut QWEEK NS latanoprost 0.005% 1 drp ophthalmic (eye) QPM lisinopril 10 mg PO DAILY mometasone-formoterol 200-5 mcg/actuation (Dulera) 2 puffs inhalation BID naproxen (EC-Naproxen) 500 mg PO BID omeprazole 20 mg PO DAILY oxcarbazepine 600 mg PO BID quetiapine 400 mg PO BEDTIME sulfasalazine 1,500 mg (3 x 500 mg) PO BID trifluoperazine 5 mg PO BID HPI Comments Details: Patient is a 48-year-old male with asthma, hypertension, polyarticular osteoarthritis (knees) and ankylosing spondylitis here today for follow up Interval History: Patient last seen 04/20/[address] Rodriguez. At that time he was following up for his HLA B27 positive ankylosing spondylitis. Taking Humira weekly, sulfasalazine 3 g a day and indomethacin 50 mg twice a day. Reports she was doing relatively well with the knee injections done at the previous visit being quite helpful Today, patient reports he is doing well overall No uveitis Knees are doing well still from the injection Rheumatologic History: HLA B27 + Diagnosed 2005 Initial history: This is a 46-year-old male with past medical history of schizoaffective disorder, psoriasis, bipolar disorder and HLA B27 positive spondyloarthropathy who presents for evaluation of spondyloarthropathy. Per patient the condition started around 2005. He was initially started on indomethacin and soon after sulfasalazine was added. Patient stated that Humira was added about 2 years ago with some improvement. He states that his main complaint is right knee pain gets recurrent knee pain and swelling. Has had knee intra-articular steroid injections in the past with some relief. He states that his toes are crooked and they are hammertoes. He was evaluated by rag shredder and was told reconstruction can be done but he would have to be off his feet for about 3 months which is difficult for the patient to do. Also has history of psoriasis. Usually below his posterior hairline, behind his ears. Currently has a patch in his scalp that is sometimes itchy. Current Rheumatology Medication(s): Humira 40 mg weekly sc Indomethacin 50 mg p.o. b.i.d. Sulfasalazine 1500 mg p.o. b.i.d. PFSH Medical History Psoriasis Nicotine dependence Hx of cocaine abuse halfway current use of anticoagulant Ankylosing spondylitis Asthma Hypertension Chronic alcoholism in remission Bipolar 1 disorder Schizoaffective disorder Obesity Surgical History H/O hemorrhoidectomy History of tonsillectomy Hx of colonoscopy Family History Mother Lung cancer Parkinsonism Father Diabetes Social History Household Members Other:: lives alone Housing: Apartment Alcohol intake: former Patient Tobacco Use Status: Former Tobacco user Years Smoked: quit 2017 e-Cigarette/Vaping Use: Never Used Substance Use Type: Crack/Cocaine service: No Current occupational status: disabled Review of Systems Const Details: Review of Systems Constitutional: Denies fever, chills, weight loss ENT: Denies vision changes, eye pain or eye redness, dental caries, dry mouth GI: Denies nausea, vomiting, diarrhea, abdominal pain, change in BM Pulm: Denies SOB, TAVERAS, hemoptysis, wheezing Cards: Denies chest pain, palpitations Skin: Denies Raynaud's, rash, nail changes, photosensitivity, DIELECTRIC PRESS OPERATOR: Denies headaches, weakness, paresthesias, recurrent falls MSK: as per HPI All other systems reviewed and are unremarkable except noted above Physical Exam Vital Signs: Last Vital Signs Pulse 95 07/30/24 13:41 BP 120/74 07/30/24 13:41 Pulse Ox 98 07/30/24 13:41 Oxygen Delivery Method Room Air 07/30/24 13:41 BMI result Body Mass Index 37.5 Vital signs reviewed Physical Examination CONSTITUITIONAL Patient alert and cooperative. Well appearing and in no apparent painful distress HEENT Conjunctiva and sclera clear. ?Pupils equal round and reactive to light. ?No lymphadenopathy. ? CHEST/RESPIRATORY SYSTEM Normal respiratory effort and able to speak in complete sentences. ?Clear to auscultation bilaterally. ?No crackles, rales, rhonchi, wheezes heard. CARDIAC SYSTEM Regular rate and rhythm. ?S1 and S2 heard no murmurs. ?Radial pulses intact bilaterally MSK Hands: ?Good founder and chief technical officer strength bilaterally. No deformities noted. ?No synovitis noted to the MCPs, PIPs or DIPs. ?No tenderness to palpation of these joints. Wrists: ?Full range of motion at the wrists without pain. ?No tenderness to palpation or synovitis noted to the wrists. Elbows: Full range of motion without pain. No tenderness, weakness, swelling, increased warmth or erythema. Shoulders: Full range of motion without pain. No tenderness, weakness, swelling, increased warmth or erythema. Hips: Full range of motion without pain. Hip bursa: No tenderness to palpation Knees: ?Full range of motion. ?No tenderness, swelling, increased warmth or erythema.?Crepitations felt bilaterally L>R Ankles: Full range of motion. ?No tenderness, swelling, increased warmth or erythema.? Feet: ?Negative squeeze test. ?No tenderness to palpation or swelling of the MTPs. Tender points:?No tenderness to palpation of the bilateral trapezius, supraspinatus, greater trochanters, anterior costochondral junctions, bilateral gluteal areas, bilateral suboccipital muscle insertions Modified Schobers test 5cm ---> 9cm SKIN Skin intact without rashes. Results Reviewed Results Reviewed: Results from lab [facility] reviewed sample collected 07/15/2024 AST/ALT 14/30 Creatinine 0.71 EGFR 106 ESR 37 CRP 16 H NILES negative WBC 8.0 Hemoglobin 10.3 L Platelets 305 TB negative Hepatitis panel negative Sample collected 07/20/2024 HB 17.4 WBC 6.9 Platelets 315 Cr 0.8 AST/ALT 23/30 ESR 13 CRP 4 Assessment & Plan Assessment & Plan (1) Ankylosing spondylitis: Comment: HLA B27 + Diagnosed 2005 Code(s): M45.9 - Ankylosing spondylitis of unspecified sites in spine Category: Medical Qualifiers: Ankylosing spondylitis location: multiple sites in spine Qualified Code(s): M45.0 - Ankylosing spondylitis of multiple sites in spine Plan: #Ankylosing spondylitis Patient is a 48-year-old male with HLA B27 positive ankylosing spondylitis here today for follow up. Currently in remission with no evidence of inflammation on his blood work from 07/20 Changed his indomethacin to naproxen because of insurance issues Plan - Humira 40mg SC weekly - Sulfasalazine 1500mg bid - Naproxen 500mg bid - RTC 4 months - Labs before visit: CBC, CMP, ESR, CRP (2) Bilateral primary osteoarthritis of knee: Code(s): M17.0 - Bilateral primary osteoarthritis of knee Category: Medical Plan: #Bilateral Knee OA Patient with bilateral knee OA. S/p bilateral knee injection 12/2023 and still doing well overall Recommend light exercises (3) Encounter for monitoring of adalimumab therapy: Code(s): Z51.81 - Encounter for therapeutic drug level monitoring; Z79.620 - halfway (current) use of immunosuppressive biologic Plan: #Long-term Use of TNF Inhibitors: Humira Discussed with the patient the benefits and risks of TNF inhibitors for the management of the rheumatic condition Benefits include reduce pain, maintenance of remission and reduction of flares as well as ?progression of the disease Risks include injection sites/infusion reactions, serious infections (such as bacterial infections, opportunistic infections), malignancy, delaminating syndromes, autoimmune phenomena, CHF exacerbations, palmar plantar psoriasis and cytopenias Recommended rotating injection sites, and holding medication during and for up to 1 week after resolution of a febrile illness or open skin wound (4) Encounter for monitoring sulfasalazine therapy: Code(s): Z51.81 - Encounter for therapeutic drug level monitoring; Z79.899 - Other custodial (current) drug therapy Plan: #Long-term Use of Sulphasalazine Discussed with patient the risks and benefits of sulfasalazine in the management of the rheumatic condition Benefits include: - Reduced pain, reduce mortality, maintenance of remission then reduction of flares Risks include: - GI upset, hemolysis (especially if G6PD deficiency), eosinophilia, headache, dizziness, rash, elevated LFTs (5) Encounter for long-term (current) use of NSAIDs: Code(s): Z79.1 - halfway (current) use of non-steroidal anti-inflammatories (NSAID) Plan: #Long-term Use of NSAIDs Discussed with patient the benefits and risk of NSAIDs for managing the rheumatic condition Benefits include: - Reduced the pain, improved mobility, and increased participation in activities Risks include: - GI upset, potential also worsening or formation (especially in patients > 65 years old) Recommended using proton pump inhibitors (PPIs) for the duration of NSAID use to reduce the risk of gastric ulcers Plan I spent [35] minutes reviewing the record and labs, taking a history, examining the patient, discussing the treatment plan, ordering diagnostic work up and documenting in the medical record Orders: Orders Complete Blood Count Auto Diff 4 Months M45.0 - Ankylosing spondylitis of multiple sites in spine Comprehensive Met. Panel 4 Months M45.0 - Ankylosing spondylitis of multiple sites in spine C Reactive Protein 4 Months M45.0 - Ankylosing spondylitis of multiple sites in spine Erythrocyte Sedimentation Rate 4 Months M45.0 - Ankylosing spondylitis of multiple sites in spine Medications: New naproxen (EC-Naproxen) 500 mg PO BID 60 tabs 5RF M45.0 - Ankylosing spondylitis of multiple sites in spine Refilled sulfasalazine 1,500 mg (3 x 500 mg) PO BID 540 tabs 1RF M45.0 - Ankylosing spondylitis of multiple sites in spine Discontinued indomethacin Discontinued Reason: Doctor's Order 50 mg PO BID 60 caps 2RF Coding Level of Care Code Est Pt Level 4 (39373) Complex EM visit Add On G2211 Diagnoses Ankylosing spondylitis of multiple sites in spine M45.0 Ankylosing spondylitis location: multiple sites in spine Bilateral primary osteoarthritis of knee M17.0 Encounter for monitoring of adalimumab therapy Z51.81; Z79.620 Encounter for monitoring sulfasalazine therapy Z51.81; Z79.899 Encounter for long-term (current) use of NSAIDs Z79.1
--- OUTSIDE RECORDS SUMMARY | 2024-07-30 17:01 | XMS_ITS | Encounter Summary ---
Author Organization [facility] [facility] Address [address] [place] [address] [address] [place] [address] Care Team Providers Care Spike Driver Name Role Phone Roberto Carlos Montes DDAndrea Primary Care Provider [phone] Encounter Details Date Type Department Care Team (Latest Contact Info) Description 12/27/2021 Abstract [facility] CONVERSIONS Dental, Provider, DDS Social History Tobacco Use Types Packs/Day Years Used Date Smoking Tobacco: Never Assessed Sex and Gender Information Value Date Recorded Sex Assigned at Male 10/15/2023 8:24 AM EDT Legal Sex Male 8:39 PM EST Gender Identity Male 03/16/2022 8:39 PM EST Sexual Orientation Choose not to disclose 2021 8:39 PM EST documented as of this encounter Plan of Treatment Not on file documented as of this encounter Visit Diagnoses Not on filedocumented in this encounter Care Teams Spike Driver Relationship Specialty Start Date End Date Roberto Carlos Montes DDS [address] [place] [address] PCP - General Dentist 03/02/22 documented as of this encounter
--- OUTSIDE RECORDS SUMMARY | 2024-07-30 17:01 | XMS_ITS | Encounter Summary ---
Author Organization [employer] [facility] Address [address] [place] [address] [address] [place] [address] Care Team Providers Care Forging Operator Name Role Phone Roberto Carlos Montes DDAndrea Primary Care Provider [phone] Encounter Details Date Type Department Care Team (Latest Contact Info) Description 09/26/2020 Abstract [facility] CONVERSIONS Dental, Provider, DDS Social [...] on filedocumented in this encounter Care Teams Forging Operator Relationship Specialty Start Date End Date Roberto Carlos Montes DDS [address] [place] [address] PCP - General Dentist 03/02/22 documented as of this encounter
--- OUTSIDE RECORDS SUMMARY | 2024-07-30 17:02 | XMS_ITS | Encounter Summary ---
Author Organization [facility] Address [address] [place] [address] [address] [place] [address] Care Team Providers Care Gold Leaf Layer Name Role Phone Roberto Carlos Montes DDAndrea Primary Care Provider [phone] Encounter Details Date Type Department Care Team (Latest Contact Info) Description 02/27/2019 Abstract [facility] CONVERSIONS Dental, Provider, DDS Social [...] on filedocumented in this encounter Care Teams Gold Leaf Layer Relationship Specialty Start Date End Date Roberto Carlos Montes DDS [address] [place] [id number] PCP - General Dentist 03/02/22 documented as of this encounter
--- OUTSIDE RECORDS SUMMARY | 2024-07-30 17:02 | XMS_ITS | Data Portability ---
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 This was an opportunity to assess your overall well being including your ability to care for yourself, your mobility, memory, mental health, as well as your safety. With advancing age, it is important to assign someone in your life as your Health Care Proxy (HCP). This person should know what is important to you and what your wishes are for medical procedures if you cannot communicate your wishes yourself (severe illness, unconsciousness) . We discussed having a completed Health Care Proxy form today. In addition, today we started a conversation about your End of Life wishes. These conversations will continue over the years. Please consider reading the book, Being Mortal by Lenard Manrique to help frame future conversations. We discussed the purpose of a MOLST form (Medical Orders for Life Sustaining Treatment) and completed this form if appropriate per your wishes. Vision and Hearing are senses that are critically important as we age. When impaired, they can contribute to memory loss, falls, and make it harder to drive, talk to family and friends, and engage in the world. Please get your vision checked yearly and your hearing checked when you start to notice hearing loss. We discussed approaches to lowering your risk of heart disease and stroke . Your blood pressure is at goal. Your cholesterol is at goal. We discussed cancer screening you may need as well as vaccines to prevent infections. Colon Cancer : Your risk of colon cancer is average. Due for colorectal screenin.. if you are not planning to have a colonoscopy please screen with stool cards yearly. Aortic Aneurysm Screening : is indicated if you have a history of smoking and is due once at age 65. Influenza Vaccine : Flu shot yearly. Tetanus Vaccine : Every 10 years. Due: 2030. The following vaccines are available from your pharmacy: Pneumonia Vaccine : PCV20: once after age 65. Shingles Vaccine : 2 shots after age 50. Covid Vaccine : Make sure you have received the most up to date covid vaccine. Your personal health goal for the year is: [email or web address] Not available 01/29/2023 06:32:15 01/27/2024 01/27/2024 We completed your Medicare Wellness exam today. This was an opportunity to assess your overall well being including your ability to care for yourself, your mobility, memory, mental health, as well as your safety. With advancing age, it is important to assign someone in your life as your Health Care Proxy (HCP). This person should know what is important to you and what your wishes are for medical procedures if you cannot communicate your wishes yourself (severe illness, unconsciousness) . We discussed having a completed Health Care Proxy form today. In addition, today we started a conversation about your End of Life wishes. These conversations will continue over the years. Please consider reading the book, Being Mortal by Lenard Manrique to help frame future conversations. We discussed the purpose of a MOLST form (Medical Orders for Life Sustaining Treatment) and completed this form if appropriate per your wishes. Vision and Hearing are senses that are critically important as we age. When impaired, they can contribute to memory loss, falls, and make it harder to drive, talk to family and friends, and engage in the world. Please get your vision checked yearly and your hearing checked when you start to notice hearing loss. We discussed approaches to lowering your risk of heart disease and stroke . Your blood pressure is at goal. Your cholesterol is at goal. We discussed cancer screening you may need as well as vaccines to prevent infections. Colon Cancer : Your risk of colon cancer is average. Due for colorectal screenin.. if you are not planning to have a colonoscopy please screen with stool cards yearly. Aortic Aneurysm Screening : is indicated if you have a history of smoking and is due once at age 65. Influenza Vaccine : Flu shot yearly. Tetanus Vaccine : Every 10 years. Due: 2030. The following vaccines are available from your pharmacy: Pneumonia Vaccine : PCV20: once after age 65. Shingles Vaccine : 2 shots after age 50. Covid Vaccine : Make sure you have received the most up to date covid vaccine. Your personal health goal for the year is: [email or web address] Not available 01/30/2024 04:54:09 06/01/2024 06/01/2024 Same day patient care and documentation time: >30 minutes Not available 06/02/2024 11:15:11 Plan of Treatment Reminders Order Date Submit Date Provider Last Modified By Organization Details Last Modified Time Details Appointments LAB Follow-Up 2024 01:00P M [facility] Lab Not available Not available Not available Medical Managemen t 30 2024 12:00P M Betsey Maxwell Jr. MD Not available Not available Not available Lab CT + NG DNA, PCR, unspecifi ed specimen 2022 023 [facility], [address] [place] [address], [id number], 08/09/2022 14:42:11 RPR (rapid plasma reagin), serum 2022 023 [facility], [address] [place] [address], [id number], 08/02/2022 13:13:19 HIV (1+2) antibodie s, EIA, serum, reflex HIV-1 western blot (WB) 2022 023 [facility], [address] [place] [address], [id number], 08/02/2022 22:48:05 hepatitis C virus Ab, serum 2022 023 [facility], [address] [place] [address], [id number], 08/02/2022 22:48:06 BMP, serum or plasma 2022 023 [facility], [address] [place] [address], [id number], 08/02/2022 11:36:30 CBC 2022 023 [facility], [address] [place] [address], [id number], 08/01/2022 17:14:02 ferritin, serum or plasma 2022 023 [facility], [address] [place] [address], [id number], 08/02/2022 10:00:44 Referral supervise d exercise therapy referral 2023 024 [facility], [address] [place] [address], [id number], 01/30/2024 04:52:00 podiatris t referral 2023 024 [email or web address] Cricket Landon DPM, [address] [place] [address], [id number], 09/05/2023 08:30:10 Procedures None recorded. Surgeries None recorded. Imaging electroca rdiogram [email or web address] [facility], [address] [place] [address], [id number], 06/02/2024 11:44:09 [address]ca [address]di[address] [facility], [address] [place] [address], [id number], 01/27/2024 16:42:05 Medication Orders None recorded. Patient TargetsNo targets recorded. Patient Instructions Encounter Date Encounter Id Patient Instructions Last Modified By Organization Details Last Modified Time 01/22/2023 [id number] Well Visit, Ages 18 to 65: Care Instructions Not available 01/29/2023 06:30:20 preventing falls : care instructions [email or web address] Not available 01/29/2023 06:30:20 hearing loss: care instructions [email or web address] Not available 01/29/2023 06:30:20 advance directives: care instructions [email or web address] Not available 01/29/2023 06:30:20 Well Visit, Ages 18 to 65: Care Instructions [email or web address] Not available 01/29/2023 06:30:20 01/27/2024 [id number] Well Visit, Ages 18 to 65: Care Instructions [email or web address] Not available 01/30/2024 04:51:20 preventing falls : care instructions [email or web address] Not available 01/30/2024 04:51:20 hearing loss: care instructions [email or web address] Not available 01/30/2024 04:51:20 advance directives: care instructions [email or web address] Not available 01/30/2024 04:51:20 06/01/2024 [id number] dizziness: care instructions [email or web address] Not available 06/01/2024 16:51:59 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 ? ?L 4.23-9 .07 Not Available [address], [address], 08/01/2022 17:14:02 08/02/19 23 08/01/2022 CBC RBC 5.88 M/? ? ?L 4.63-6 .08 Not Available [address], [address], 08/01/2022 17:14:02 08/02/19 23 08/01/2022 CBC HGB 15.1 g/dL 13.7-1 7.5 Not Available [address], [address], 08/01/2022 17:14:02 08/02/19 23 08/01/2022 CBC HCT 48.2 % 40.1-5 1.0 Not Available [address], [address], 08/01/2022 17:14:02 08/02/19 23 08/01/2022 CBC MCV 82.0 fL 79.0-9 2.2 Not Available [address], [address], 08/01/2022 17:14:02 08/02/19 23 08/01/2022 CBC MCH 25.7 pg 25.7-3 2.2 Not Available [address], [address], 08/01/2022 17:14:02 08/02/19 23 08/01/2022 CBC MCHC 31.3 g/dL 32.3-3 6.5 low Not Available [address], [address], 08/01/2022 17:14:02 08/02/19 23 08/01/2022 CBC plt 285 K/? ? ?L 163-33 7 Not Available [address], [address], 08/01/2022 17:14:02 08/02/19 23 08/01/2022 CBC MPV 9.1 fL 9.4-12 .4 low Not Available [address], [address], 08/01/2022 17:14:02 08/02/19 23 08/01/2022 CBC neut% 69.0 % 34.0-6 7.9 high Not Available [address], [address], 08/01/2022 17:14:02 08/02/19 23 08/01/2022 CBC neut# 4.69 1.78-5 .38 Not Available [address], [address], 08/01/2022 17:14:02 08/02/19 23 08/01/2022 CBC lymph % 22.6 % 21.8-5 3.1 Not Available [address], [address], 08/01/2022 17:14:02 08/02/19 23 08/01/2022 CBC lymph # 1.54 K/? ? ?L 1.32-3 .57 Not Available [address], [address], 08/01/2022 17:14:02 08/02/19 23 08/01/2022 CBC mono% 7.1 % 5.3-12 .2 Not Available [address], [address], 08/01/2022 17:14:02 08/02/19 23 08/01/2022 CBC mono# 0.48 0.30-0 .82 Not Available [address], [address], 08/01/2022 17:14:02 08/02/19 23 08/01/2022 CBC eo% 0.0 % 0.8-7. 0 low Not Available [address], [address], 08/01/2022 17:14:02 08/02/19 23 08/01/2022 CBC eo# 0.00 0.04-0 .54 low Not Available [address], [address], 08/01/2022 17:14:02 08/02/19 23 08/01/2022 CBC baso% 1.0 % 0.2-1. 2 Not Available [address], [address], 08/01/2022 17:14:02 08/02/19 23 08/01/2022 CBC baso# 0.07 0.00-0 .08 Not Available [address], [address], 08/01/2022 17:14:02 08/02/19 23 08/01/2022 CBC RDW-CV 15.1 % 11.6-1 4.4 high Not Available [address], [address], 08/01/2022 17:14:02 08/02/19 23 08/01/2022 CBC Ig% 0.300 % 0.000- 1.500 Ig % >0.5 Indic ates possi ble Left Shift Not Available [address], [address], 08/01/2022 17:14:02 08/02/19 23 08/01/2022 CBC Ig# 0.020 0.000- 0.093 Not Available [address], [address], 08/01/2022 17:14:02 08/02/19 23 08/01/2022 CBC NRBC% 0.0 % 0.0-0. 2 Not Available [address], [address], 08/01/2022 17:14:02 08/02/19 23 08/01/2022 CBC NRBC# 0.000 0.000- 0.012 Not Available [address], [address], 08/01/2022 17:14:02 08/02/19 23 08/02/2022 LANCE TIN ferritin 18 NG/mL 22-415 low Not Available [address], [address], 08/02/2022 10:00:44 08/02/19 23 08/02/2022 BASIC METAB OLIC PANEL glucose 94 mg/dL 70-100 Not Available [address], [address], 08/02/2022 11:36:30 08/02/19 23 08/02/2022 BASIC METAB OLIC PANEL BUN 6 mg/dL 7-18 low Not Available [address], [address], 08/02/2022 11:36:30 08/02/19 23 08/02/2022 BASIC METAB OLIC PANEL creatinine 0.9 mg/dL 0.8-1. 3 Not Available [address], [address], 08/02/2022 11:36:30 08/02/19 23 08/02/2022 BASIC METAB OLIC PANEL B/C 6.7 ratio Not Available [address], [address], 08/02/2022 11:36:30 08/02/19 23 08/02/2022 BASIC METAB OLIC PANEL GFR >=60ML /MIN mL/mi n normal >=60m L/min - Fely l or midly reduc ed <60mL /min- Decre ased kidne y funct ion <15mL /min - Kidne y failu re [facility] calcu lates estim ated Glome rular Filtr ation Rate (eGFR ) using the Chron ic Kidne y Disea se Epide miolo gy Colla borat ion (CKD- EPI) Equat ion (Brii r et. al 2020) as recom domo d by the Natio nal Kidne y Found ation . eGFR is based on age, serum creat inine , and sex. CKD-E PI does not calcu late eGFR by race, does not apply to child arnoldo (age <18 years ), and shoul d not be used in pregn kirk. Not Available [address], [address], 08/02/2022 11:36:30 08/02/1908/02/2022 BASIC METAB OLIC PANEL sodium 139 mmol/ L 136-14 5 Not Available [address], [address], 08/02/2022 11:36:30 08/02/19 23 08/02/2022 BASIC METAB OLIC PANEL potassium 4.6 mmol/ L 3.5-5. 1 Not Available [address], [address], 08/02/2022 11:36:30 08/02/19 23 08/02/2022 BASIC METAB OLIC PANEL chloride 102 mmol/ L 96-107 Not Available [address], [address], 08/02/2022 11:36:30 08/02/19 23 08/02/2022 BASIC METAB OLIC PANEL anion gap 9.0 5.0-15 .0 Not Available [address], [address]20, 08/02/2022 11:36:30 08/02/19 23 08/02/2022 BASIC METAB OLIC PANEL CO2 28 mmol/ L 21-32 Not Available [address], 59980, 08/02/2022 11:36:30 08/02/19 23 08/02/2022 BASIC METAB OLIC PANEL calcium 9.0 mg/dL 8.5-10 .3 Not Available [address], [address]297, 08/02/2022 11:36:30 08/02/19 23 08/02/2022 RPR RPR NON-RE ACTIVE nonrea ctive Not Available [address], [address], 08/02/2022 13:13:19 08/02/1908/02/2022 HIV 1/2 ANTIG EN/AN TIBOD Y,FOU RTH GENER ATION W/RFL HIV Ag/Ab, 4TH gen NON-RE ACTIVE non-re active normal HIV-1 antig en and HIV-1 /HIV- 2 antib odies were not detec edyta. There is no labor atory evide nce of HIV infec tion. PLEAS E NOTE: This infor lilliana caro has been discl osed to you from recor ds whose confi denti ality may be prote cted by state law. If your state requi res such prote ction , then the state law prohi bits you from jimenafabby cheli any furth er discl osure of the infor matio n witho ut the speci fic writt en conse nt of the perso n to whom it perta ins, or as other stroud permi tted by law. A gener al autho rizat ion for the relea se of medic al or other infor matio n is NOT suffi cient for this purpo se. For addit ional infor matio n pleas e refer to http: //[facility] n.que stdia gnost ics.c om/fa q/FAQ 106 (This link is being provi ded for infor matio nal/ educa morgan l purpo ses only. ) The perfo rmanc e of this assay has not been clini russell valid ated in patie nts less than 2 years old. Not Available [facility] [address], [address], 08/02/2022 22:48:05 08/02/19 23 08/02/2022 HEPAT ITIS C AB W/REF L TO HCV RNA, QN, PCR hepatitis C antibody NON-RE ACTIVE non-re active normal Not Available [facility] [address], [address], 08/02/2022 22:48:06 08/02/19 23 08/02/2022 HEPAT ITIS C AB W/REF L TO HCV RNA, QN, PCR index 0.02 <1.00 normal HCV antib letty was non-r eacti ve. There is no labor atory evide nce of HCV infec tion. In most cases , no furth er actio n is requi red. Howev er, if recen t HCV expos ure is suspe cted, a test for HCV RNA (test code 60323 ) is sugge sted. For addit ional infor matio n pleas e refer to http: //[facility] n.que stdia gnost ics.c om/fa q/FAQ 22v1 (This link is being provi ded for infor lilliana castorena/ vernon kang ses only. ) Not Available [facility] [address] [place] [address], [place], [address], 08/02/2022 22:48:06 08/02/19 23 08/09/2022 CHLAM YDIA/ GC, URINE DANETTE N. gonorrhoeae GC NEG negati ve normal Not Available [address], [address], 08/09/2022 14:42:11 08/02/19 23 08/09/2022 CHLAM YDIA/ GC, URINE DANETTE C. trachomatis CT NEG negati ve normal Not Available [address], [address], 08/09/2022 14:42:11 01/16/20 23 01/15/2023 CBC WBC 8.57 K/? ? ?L 4.23-9 .07 Not Available [address], [address], 01/15/2023 17:09:26 01/16/20 23 01/15/2023 CBC RBC 4.80 M/? ? ?L 4.63-6 .08 Not Available [address], [address], 01/15/2023 17:09:26 01/16/20 23 01/15/2023 CBC HGB 13.2 g/dL 13.7-1 7.5 low Not Available [address], [address], 01/15/2023 17:09:26 01/16/20 23 01/15/2023 CBC HCT 40.4 % 40.1-5 1.0 Not Available [address], [address], 01/15/2023 17:09:26 01/16/20 23 01/15/2023 CBC MCV 84.2 fL 79.0-9 2.2 Not Available [address], [address], 01/15/2023 17:09:26 01/16/20 23 01/15/2023 CBC MCH 27.5 pg 25.7-3 2.2 Not Available [address], [address], 01/15/2023 17:09:26 01/16/20 23 01/15/2023 CBC MCHC 32.7 g/dL 32.3-3 6.5 Not Available [address], [address], 01/15/2023 17:09:26 01/16/20 23 01/15/2023 CBC plt 299 K/? ? ?L 163-33 7 Not Available [address], [address], 01/15/2023 17:09:26 01/16/20 23 01/15/2023 CBC MPV 8.5 fL 9.4-12 .4 low Not Available [address], [address], 01/15/2023 17:09:26 01/16/20 23 01/15/2023 CBC neut% 75.1 % 34.0-6 7.9 high Not Available [address], [address], 01/15/2023 17:09:26 01/16/20 23 01/15/2023 CBC neut# 6.43 1.78-5 .38 high Not Available [address], [address], 01/15/2023 17:09:26 01/16/20 23 01/15/2023 CBC lymph % 16.0 % 21.8-5 3.1 low Not Available [address], [address], 01/15/2023 17:09:26 01/16/20 23 01/15/2023 CBC lymph # 1.37 K/? ? ?L 1.32-3 .57 Not Available [address], [address], 01/15/2023 17:09:26 01/16/20 23 01/15/2023 CBC mono% 7.2 % 5.3-12 .2 Not Available [address], [address], 01/15/2023 17:09:26 01/16/20 23 01/15/2023 CBC mono# 0.62 0.30-0 .82 Not Available [address], [address], 01/15/2023 17:09:26 01/16/20 23 01/15/2023 CBC eo% 0.0 % 0.8-7. 0 low Not Available [address], [address], 01/15/2023 17:09:26 01/16/20 23 01/15/2023 CBC eo# 0.00 0.04-0 .54 low Not Available [address], [address], 01/15/2023 17:09:26 01/16/20 23 01/15/2023 CBC baso% 0.8 % 0.2-1. 2 Not Available [address], [address], 01/15/2023 17:09:26 01/16/20 23 01/15/2023 CBC baso# 0.07 0.00-0 .08 Not Available [address], [address], 01/15/2023 17:09:26 01/16/20 23 01/15/2023 CBC RDW-CV 13.5 % 11.6-1 4.4 Not Available [address], [address], 01/15/2023 17:09:26 01/16/20 23 01/15/2023 CBC Ig% 0.900 % 0.000- 1.500 Ig % >0.5 Indic ates possi ble Left Shift Not Available [address], [address], 01/15/2023 17:09:26 01/16/20 23 01/15/2023 CBC Ig# 0.080 0.000- 0.093 Not Available [address], [address], 01/15/2023 17:09:26 01/16/20 23 01/15/2023 CBC NRBC% 0.0 % 0.0-0. 2 Not Available [address], [address], 01/15/2023 17:09:26 01/16/20 23 01/15/2023 CBC NRBC# 0.000 0.000- 0.012 Not Available [address], [address], 01/15/2023 17:09:26 01/16/2001/16/2023 LIPID PANEL cholesterol 200 mg/dL <200 mg/dl Vasiliy able 200-2 39 mg/dl Borde rline High >240 mg/dl High Not Available [address], [address], 01/16/2023 14:08:59 01/16/2001/16/2023 LIPID PANEL triglyceride s 80 mg/dL <150 mg/dL Fely l 150-1 99 mg/dL Borde rline High 200-4 99 mg/dL High >500 mg/dL Very High Not Available [address], [address], 01/16/2023 14:08:59 01/16/2001/16/2023 LIPID PANEL direct HDL 49 mg/dL <40 mg/dl - Major Risk for CHD >60 mg/dl - Negat melba Risk for CHD Not Available [address], [address], 01/16/2023 14:08:59 01/16/20 23 01/16/2023 LDL - CALCU LATED LDL - calculated 135.0 RISK CATEG ORY LDL GOAL _ CHD or CHD Risk Equiv alent s <100 mg/dl (10-y ear risk >20%) 2+ Risk Facto rs <130 mg/dl (10-y ear risk <= 20%) 0-1 Risk Facto r? <160 mg/dl ? Almos t all peopl e with 0-1 risk facto r have a 10 year risk <10%, thus 10 year risk asses ment in peopl e with 0-1 risk facto r is not neces zenia. Not Available [address], [address], 01/16/2023 14:09:00 01/16/20 23 01/16/2023 COMP. METAB OLIC PANEL glucose 87 mg/dL 70-100 Not Available [address], [address], 01/16/2023 14:22:35 01/16/20 23 01/16/2023 COMP. METAB OLIC PANEL BUN 5 mg/dL 7-18 low Not Available [address], [address]60, 01/16/2023 14:22:35 01/16/20 23 01/16/2023 COMP. METAB OLIC PANEL creatinine 0.8 mg/dL 0.8-1. 3 Not Available [address], [address], 01/16/2023 14:22:35 01/16/20 23 01/16/2023 COMP. METAB OLIC PANEL B/C 6.3 ratio Not Available [address], [address], 01/16/2023 14:22:35 01/16/20 23 01/16/2023 COMP. METAB OLIC PANEL GFR >=60ML /MIN mL/mi n normal >=60m L/min - Fely l or midly reduc ed <60mL /min- Decre ased kidne y funct ion <15mL /min - Kidne y failu re [facility] calcu lates estim ated Glome rular Filtr ation Rate (eGFR ) using the Chron ic Kidne y Disea se Epide miolo gy Colla borat ion (CKD- EPI) Equat ion (Brii tate et. al 2020) as recom domo d by the Natio nal Kidne y Found ation . eGFR is based on age, serum creat inine , and sex. CKD-E PI does not calcu late eGFR by race, does not apply to child arnoldo (age <18 years ), and shoul d not be used in pregn kirk. Not Available [address], [address], 01/16/2023 14:22:35 01/16/2001/16/2023 COMP. METAB OLIC PANEL sodium 141 mmol/ L 136-14 5 Not Available [address], [address], 01/16/2023 14:22:35 01/16/20 23 01/16/2023 COMP. METAB OLIC PANEL potassium 4.3 mmol/ L 3.5-5. 1 Not Available [address], [address], 01/16/2023 14:22:35 01/16/20 23 01/16/2023 COMP. METAB OLIC PANEL chloride 103 mmol/ L 96-107 Not Available [address], [address], 01/16/2023 14:22:35 01/16/20 23 01/16/2023 COMP. METAB OLIC PANEL anion gap 13.0 5.0-15 .0 Not Available [address], [address], 01/16/2023 14:22:35 01/16/20 23 01/16/2023 COMP. METAB OLIC PANEL CO2 25 mmol/ L 21-32 Not Available [address], [address], 01/16/2023 14:22:35 01/16/20 23 01/16/2023 COMP. METAB OLIC PANEL calcium 8.3 mg/dL 8.5-10 .3 low MAI=V erifi ed by Govind sanches Not Available [address], [address], 01/16/2023 14:22:35 01/16/20 23 01/16/2023 COMP. METAB OLIC PANEL total protein 7.3 g/dL 6.4-8. 2 Not Available [address], [address], 01/16/2023 14:22:35 01/16/20 23 01/16/2023 COMP. METAB OLIC PANEL albumin 3.7 g/dL 3.4-5. 0 Not Available [address], [address], 01/16/2023 14:22:35 01/16/20 23 01/16/2023 COMP. METAB OLIC PANEL globulin 3.6 g/dL Not Available [address], [address], 01/16/2023 14:22:35 01/16/20 23 01/16/2023 COMP. METAB OLIC PANEL A/G 1.0 ratio 0.8-2. 0 Not Available [address], [address], 01/16/2023 14:22:35 01/16/20 23 01/16/2023 COMP. METAB OLIC PANEL total bilirubin 0.40 mg/dL 0.00-1 .00 Not Available [address], [address], 01/16/2023 14:22:35 01/16/20 23 01/16/2023 COMP. METAB OLIC PANEL AST 14 U/L 0-37 Not Available [address], [address], 01/16/2023 14:22:35 01/16/20 23 01/16/2023 COMP. METAB OLIC PANEL ALT 15 U/L 6-63 Not Available [address], [address], 01/16/2023 14:22:35 01/16/20 23 01/16/2023 COMP. METAB OLIC PANEL alk. phos. 112 U/L 50-136 Not Available [address], [address], 01/16/2023 14:22:35 04/07/20 23 04/07/2023 TOXIC OLOGY SCREE N, URINE urine cannabinoids NONE DETECT ED none detect ed Cutof f: 50 ng/mL Not Available [facility] [address] [place] [address], [address], 04/07/2023 21:52:43 04/07/20 23 04/07/2023 TOXIC OLOGY SCREE N, URINE urine cocaine metab Positi ve none detect ed abnormal Cutof f: 300 ng/mL Not Available [facility] (Out[facility]) [address] [place], [address], 04/07/2023 21:52:43 04/07/20 23 04/07/2023 TOXIC OLOGY SCREE N, URINE urine amphetamines NONE DETECT ED none detect ed Cutof f: 1000 ng/mL Not Available [facility] (Out[facility]) [address] [place], [address], 04/07/2023 21:52:43 04/07/20 23 04/07/2023 TOXIC OLOGY SCREE N, URINE urine methadone NONE DETECT ED none detect ed Cutof f: 300 ng/mL Not Available [facility] (Out[facility]) [address] [place], [address], 04/07/2023 21:52:43 04/07/20 23 04/07/2023 TOXIC OLOGY SCREE N, URINE urine opiates NONE DETECT ED none detect ed Cutof f: 300 ng/mL Not Available [facility] (Out[facility]) [address] [place], [address], 04/07/2023 21:52:43 04/07/20 23 04/07/2023 TOXIC OLOGY SCREE N, URINE urine phencyclidin e NONE DETECT ED none detect ed Cutof f: 25 ng/mL Not Available [facility] ([facility]) [address] [place], [address], 04/07/2023 21:52:43 04/07/20 23 04/07/2023 TOXIC OLOGY SCREE N, URINE urine oxycodone NONE DETECT ED none detect ed Cutof f: 300 ng/mL Not Available [facility] ([facility]) [address] [place], [address], 04/07/2023 21:52:43 04/07/20 23 04/07/2023 TOXIC OLOGY SCREE N, URINE urine barbiturates NONE DETECT ED none detect ed Cutof f: 200 ng/mL Not Available [facility] (Outpatient) [address] [place], [address], 04/07/2023 21:52:43 04/07/20 23 04/07/2023 TOXIC OLOGY SCREE N, URINE urine benzodiazepi ne NONE DETECT ED none detect ed Cutof f: 200 ng/mL Not Available [facility] (Outpatient) [address] [place], [address], 04/07/2023 21:52:43 04/07/20 23 04/07/2023 TOXIC OLOGY SCREE N, URINE urine buprenorphin e NONE DETECT ED none detect ed Cutof f: 5 ng/mL Not Available [facility] (Outpatient) [address] [place] [address], [id number], 04/07/2023 21:52:43 04/07/20 23 04/07/2023 TOXIC OLOGY SCREE N, URINE fentanyl, urine NONE DETECT ED none detect ed Cutof f: 5 ng/mL INTER PRETA TION FOR TOXIC OLOGY PANEL : Thes e resul ts are uncon firme d and shoul d be used for Medic al Treat ment purpo ses only. Not Available [facility] (Outpatient) [address] [place] [address], [id number], 04/07/2023 21:52:43 04/07/20 23 04/07/2023 CBC AND DIFFE RENTI AL WBC 10.51 K/uL 4.00-1 1.00 Not Available [facility] (Outpatient) [address] [place] [address], [id number], 04/07/2023 23:08:36 04/07/20 23 04/07/2023 CBC AND DIFFE RENTI AL RBC 5.00 M/uL 4.23-5 .82 Not Available [facility] (Outpatient) [address] [place] [address], [id number], 04/07/2023 23:08:36 04/07/20 23 04/07/2023 CBC AND DIFFE RENTI AL HGB 14.0 g/dL 13.4-1 7.5 Not Available [facility] (Outpatient) [address] [place] [address], [id number], 04/07/2023 23:08:36 04/07/20 23 04/07/2023 CBC AND DIFFE RENTI AL HCT 41.5 % 37.0-5 1.0 Not Available [facility] (Outpatient) [address] [place] [address], [id number], 04/07/2023 23:08:36 04/07/20 23 04/07/2023 CBC AND DIFFE RENTI AL plt 227 K/uL 140-43 0 Not Available [facility] (Outpatient) [address] [place], [address], 04/07/2023 23:08:36 04/07/20 23 04/07/2023 CBC AND DIFFE RENTI AL MCV 83.0 fL 78.0-9 7.0 Not Available [facility] (Outpatient) [address] [place], [address], 04/07/2023 23:08:36 04/07/20 23 04/07/2023 CBC AND DIFFE RENTI AL MCH 28.0 pg 25.0-3 3.0 Not Available [facility] (Outpatient) [address] [place], [address], 04/07/2023 23:08:36 04/07/20 23 04/07/2023 CBC AND DIFFE RENTI AL MCHC 33.7 g/dL 32.0-3 6.0 Not Available [facility] (Outpatient) [address] [place], [address], 04/07/2023 23:08:36 04/07/20 23 04/07/2023 CBC AND DIFFE RENTI AL RDW 14.6 % 11.0-1 5.0 Not Available [facility] (Outpatient) [address] [place], [address], 04/07/2023 23:08:36 04/07/20 23 04/07/2023 CBC AND DIFFE RENTI AL MPV 8.7 fL 8.4-12 .8 Not Available [facility] (Outpatient) [address] [place], [address], 04/07/2023 23:08:36 04/07/20 23 04/07/2023 CBC AND DIFFE RENTI AL diff method Auto Not Available [facility] (Outpatient) [address] [place], [address], 04/07/2023 23:08:36 04/07/20 23 04/07/2023 CBC AND DIFFE RENTI AL neuts 78.3 % 43.0-7 5.0 high Not Available [facility] (Outpatient) [address] [place], [address], 04/07/2023 23:08:36 04/07/20 23 04/07/2023 CBC AND DIFFE RENTI AL lymphs 12.9 % 18.2-4 7.4 low Not Available [facility] (Outpatient) [address] [place], [address], 04/07/2023 23:08:36 04/07/20 23 04/07/2023 CBC AND DIFFE RENTI AL monos 7.7 % 4.00-1 1.00 Not Available [facility] (Outpatient) [address] [place], [address], 04/07/2023 23:08:36 04/07/20 23 04/07/2023 CBC AND DIFFE RENTI AL eos 0.2 % 0.0-8. 0 Not Available [facility] (Outpatient) [address] [place], [address], 04/07/2023 23:08:36 04/07/20 23 04/07/2023 CBC AND DIFFE RENTI AL basos 0.4 % 0.0-2. 0 Not Available [facility] (Outpatient) [address] [place], [address], 04/07/2023 23:08:36 04/07/20 23 04/07/2023 CBC AND DIFFE RENTI AL granulocytes , immature (%) 0.5 % 0.0-0. 9 Not Available [facility] (Outpatient) [address] [place], [address], 04/07/2023 23:08:36 04/07/20 23 04/07/2023 CBC AND DIFFE RENTI AL absolute neuts 8.23 K/uL 1.80-7 .70 high Not Available [facility] (Outpatient) [address] [place], [address], 04/07/2023 23:08:36 04/07/20 23 04/07/2023 CBC AND DIFFE RENTI AL absolute lymphs 1.36 K/uL 1.00-3 .10 Not Available [facility] (Outpatient) [address] [place], [address], 04/07/2023 23:08:36 04/07/20 23 04/07/2023 CBC AND DIFFE RENTI AL absolute monos 0.81 K/uL 0.20-0 .80 high Not Available [facility] (Outpatient) [address] [place], [address], 04/07/2023 23:08:36 04/07/20 23 04/07/2023 CBC AND DIFFE RENTI AL absolute eos 0.02 K/uL 0.00-0 .80 Not Available [facility] (Out[facility]) [address] [place], [address], 04/07/2023 23:08:36 04/07/20 23 04/07/2023 CBC AND DIFFE RENTI AL absolute basos 0.04 K/uL 0.00-0 .09 Not Available [facility] (Outpatient) [address] [place], [address], 04/07/2023 23:08:36 04/07/20 23 04/07/2023 CBC AND DIFFE RENTI AL granulocytes , immature 0.05 K/uL 0.00-0 .05 Not Available [facility] (Out[facility]) [address] [place], [address], 04/07/2023 23:08:36 04/07/20 23 04/07/2023 SANDI OL, BLOOD ethanol <10 mg/dL <10 Not Available [facility] (Outpatient) [address] [place], [address], 04/07/2023 23:28:43 04/07/20 23 04/07/2023 BASIC METAB OLIC PANEL sodium 136 mmol/ L 133-14 6 Not Available [facility] (Outpatient) [address] [place], [address], 04/07/2023 23:35:04 04/07/20 23 04/07/2023 BASIC METAB OLIC PANEL chloride 101 mmol/ L 96-108 Not Available [facility] (Outpatient) [address] [place], [address], 04/07/2023 23:35:04 04/07/20 23 04/07/2023 BASIC METAB OLIC PANEL potassium 3.2 mmol/ L 3.3-5. 1 low Not Available [facility] (Out[facility]) [address] [place], [address], 04/07/2023 23:35:04 04/07/20 23 04/07/2023 BASIC METAB OLIC PANEL CO2 23 mmol/ L 21-35 Not Available [facility] (Outpatient) [address] [place], [address], 04/07/2023 23:35:04 04/07/20 23 04/07/2023 BASIC METAB OLIC PANEL BUN 10 mg/dL 6-19 Not Available [facility] (Outpatient) [address] [place], [address], 04/07/2023 23:35:04 04/07/20 23 04/07/2023 BASIC METAB OLIC PANEL creatinine 0.70 mg/dL 0.5-1. 5 Not Available [facility] (Outpatient) [address] [place], [address], 04/07/2023 23:35:04 04/07/20 23 04/07/2023 BASIC METAB OLIC PANEL glucose 112 mg/dL 70-99 high Not Available [facility] (Outpatient) [address] [place], [address], 04/07/2023 23:35:04 04/07/20 23 04/07/2023 BASIC METAB OLIC PANEL calcium 9.2 mg/dL 8.4-10 .3 Not Available [facility] (Outpatient) [address] [place], [address], 04/07/2023 23:35:04 04/07/20 23 04/07/2023 BASIC METAB OLIC PANEL eGFR 113 mL/mi n/1.7 3m2 >59 Estim ated glome rular filtr ation rate calcu lated using the CKD-E PI refit equat ion. Not Available [facility] (Outpatient) [address] [place], [address], 04/07/2023 23:35:04 04/07/20 23 04/07/2023 BASIC METAB OLIC PANEL anion gap 15 mmol/ L 10-20 Not Available [facility] (Outpatient) [address] [place], [address], 04/07/2023 23:35:04 04/07/20 23 04/07/2023 LFTS (HEPA TIC PANEL ) alkaline phosphatase 83 U/L 39-117 Not Available [facility] (Outpatient) [address] [place], [address], 04/07/2023 23:35:10 04/07/20 23 04/07/2023 LFTS (HEPA TIC PANEL ) total bilirubin <0.2 mg/dL 0.0-1. 2 Not Available [facility] (Outpatient) [address] [place], [address], 04/07/2023 23:35:10 04/07/20 23 04/07/2023 LFTS (HEPA TIC PANEL ) direct bilirubin <0.2 mg/dL 0-0.3 Not Available [facility] (Outpatient) [address] [place], [address], 04/07/2023 23:35:10 04/07/20 23 04/07/2023 LFTS (HEPA TIC PANEL ) bilirubin (indirect) NOT CALCUL ATED mg/dL 0-1.5 Not Available [facility] (Outpatient) [address] [place], [address], 04/07/2023 23:35:10 04/07/20 23 04/07/2023 LFTS (HEPA TIC PANEL ) AST 16 U/L 0-37 Not Available [facility] (Outpatient) [address] [place], [address], 04/07/2023 23:35:10 04/07/20 23 04/07/2023 LFTS (HEPA TIC PANEL ) ALT 22 U/L 0-40 Not Available [facility] (Outpatient) [address] [place], [address], 04/07/2023 23:35:10 04/07/20 23 04/07/2023 LFTS (HEPA TIC PANEL ) total protein 6.6 g/dL 6.5-8. 0 Not Available [facility] (Outpatient) [address] [place], [address], 04/07/2023 23:35:10 04/07/20 23 04/07/2023 LFTS (HEPA TIC PANEL ) albumin 4.0 g/dL 3.9-4. 8 Not Available [facility] (Outpatient) [address] [place], [address], 04/07/2023 23:35:10 04/07/20 23 04/07/2023 LFTS (HEPA TIC PANEL ) globulin 2.6 g/dL 1-4.8 Not Available [facility] (Outpatient) [address] [place], [address], 04/07/2023 23:35:10 04/07/20 23 04/07/2023 LFTS (HEPA TIC PANEL ) A/G ratio 1.54 ratio 1.00-4 .80 Not Available [facility] (Outpatient) [address] [place], [address], 04/07/2023 23:35:10 04/07/20 23 04/07/2023 MAGNE SIUM magnesium 2.0 mg/dL 1.6-2. 6 Not Available [facility] (Outpatient) [address] [place], [address], 04/07/2023 23:40:05 07/25/19 24 07/25/2023 CBC WBC 6.94 K/? ? ?L 4.23-9 .07 Not Available [address], [address], 07/25/2023 16:58:59 07/25/19 24 07/25/2023 CBC RBC 5.05 M/? ? ?L 4.63-6 .08 Not Available [address], [address], 07/25/2023 16:58:59 07/25/19 24 07/25/2023 CBC HGB 14.4 g/dL 13.7-1 7.5 Not Available [address], [address], 07/25/2023 16:58:59 07/25/19 24 07/25/2023 CBC HCT 43.7 % 40.1-5 1.0 Not Available [address], [address], 07/25/2023 16:58:59 07/25/19 24 07/25/2023 CBC MCV 86.5 fL 79.0-9 2.2 Not Available [address], [address], 07/25/2023 16:58:59 07/25/19 24 07/25/2023 CBC MCH 28.5 pg 25.7-3 2.2 Not Available [address], [address], 07/25/2023 16:58:59 07/25/19 24 07/25/2023 CBC MCHC 33.0 g/dL 32.3-3 6.5 Not Available [address], [address], 07/25/2023 16:58:59 07/25/19 24 07/25/2023 CBC plt 285 K/? ? ?L 163-33 7 Not Available [address], [address], 07/25/2023 16:58:59 07/25/19 24 07/25/2023 CBC MPV 9.1 fL 9.4-12 .4 low Not Available [address], [address], 07/25/2023 16:58:59 07/25/19 24 07/25/2023 CBC neut% 75.2 % 34.0-6 7.9 high Not Available [address], [address], 07/25/2023 16:58:59 07/25/19 24 07/25/2023 CBC neut# 5.21 1.78-5 .38 Not Available [address], [address], 07/25/2023 16:58:59 07/25/19 24 07/25/2023 CBC lymph % 16.1 % 21.8-5 3.1 low Not Available [address], [address], 07/25/2023 16:58:59 07/25/19 24 07/25/2023 CBC lymph # 1.12 K/? ? ?L 1.32-3 .57 low Not Available [address], [address], 07/25/2023 16:58:59 07/25/19 24 07/25/2023 CBC mono% 7.5 % 5.3-12 .2 Not Available [address], [address], 07/25/2023 16:58:59 07/25/19 24 07/25/2023 CBC mono# 0.52 0.30-0 .82 Not Available [address], [address], 07/25/2023 16:58:59 07/25/19 24 07/25/2023 CBC eo% 0.1 % 0.8-7. 0 low Not Available [address], [address], 07/25/2023 16:58:59 07/25/19 24 07/25/2023 CBC eo# 0.01 0.04-0 .54 low Not Available [address], [address], 07/25/2023 16:58:59 07/25/19 24 07/25/2023 CBC baso% 0.7 % 0.2-1. 2 Not Available [address], [address], 07/25/2023 16:58:59 07/25/19 24 07/25/2023 CBC baso# 0.05 0.00-0 .08 Not Available [address], [address], 07/25/2023 16:58:59 07/25/19 24 07/25/2023 CBC RDW-CV 13.6 % 11.6-1 4.4 Not Available [address], [address], 07/25/2023 16:58:59 07/25/19 24 07/25/2023 CBC Ig% 0.400 % 0.000- 1.500 Ig % >0.5 Indic ates possi ble Left Shift Not Available [address], [address], 07/25/2023 16:58:59 07/25/19 24 07/25/2023 CBC Ig# 0.030 0.000- 0.093 Not Available [address], [address], 07/25/2023 16:58:59 07/25/19 24 07/25/2023 CBC NRBC% 0.0 % 0.0-0. 2 Not Available [address], [address], 07/25/2023 16:58:59 07/25/19 24 07/25/2023 CBC NRBC# 0.000 0.000- 0.012 Not Available [address], [address], 07/25/2023 16:58:59 07/25/19 24 07/26/2023 HEPAT ITIS B SURFA CE ANTIG EN W/REF L CONFI RM hepatitis B surface antigen NON-RE ACTIVE non-re active normal For addit ional infor jimmy springer e refer to http: //[facility] silviano caro.que stdia gnost ics.c om/fa q/FAQ (This link is being provi ded for infor lilliana castorena/ educa morgan l purpo ses only. ) Not Available [facility] [address] [place] [address], [address], 07/26/2023 11:32:40 07/25/19 24 07/26/2023 HEPAT ITIS C AB W/REF L TO HCV RNA, QN, PCR hepatitis C antibody NON-RE ACTIVE non-re active normal HCV antib letty was non-r eacti ve. There is no labor atory evide nce of HCV infec tion. In most cases , no furth er actio n is requi red. Howev er, if recen t HCV expos ure is suspe cted, a test for HCV RNA (test code 26203 ) is sugge sted. For addit ional infor matio n pleas e refer to http: //[facility] silviano seals stdia gnost ics.c om/fa q/FAQ 22v1 (This link is being provi ded for infor matio nal/ educa morgan l purpo ses only. ) Not Available [facility] [address], [place], [address], 07/26/2023 11:32:41 07/25/19 24 07/26/2023 HIV 1/2 ANTIG EN/AN TIBOD Y,FOU RTH GENER ATION W/RFL HIV Ag/Ab, 4TH gen NON-RE ACTIVE non-re active normal HIV-1 antig en and HIV-1 /HIV- 2 antib odies were not detec edyta. There is no labor atory evide nce of HIV infec tion. PLEAS E NOTE: This infor matio n has been discl osed to you from recor ds whose confi denti ality may be prote cted by state law. If your state requi res such prote ction , then the state law prohi bits you from muna bower any furth er discl osure of the infor matio n witho ut the speci fic writt en conse nt of the perso n to whom it perta ins, or as other stroud permi tted by law. A gener al autho rizat ion for the relea se of medic al or other infor matio n is NOT suffi cient for this purpo se. For addit ional infor matio n pleas e refer to http: //hien seals stdia gnost ics.c om/fa q/FAQ 106 (This link is being provi ded for infor matio nal/ educa morgan l purpo ses only. ) The perfo rmanc e of this assay has not been clini russell valid ated in patie nts less than 2 years old. Not Available [facility] [address], [place], [address], 07/26/2023 11:32:42 07/25/19 24 07/26/2023 COMP. METAB OLIC PANEL glucose 121 mg/dL 70-100 high Not Available [address], [address], 07/26/2023 11:47:40 07/25/19 24 07/26/2023 COMP. METAB OLIC PANEL BUN 5 mg/dL 7-18 low Not Available [address], [address], 07/26/2023 11:47:40 07/25/19 24 07/26/2023 COMP. METAB OLIC PANEL creatinine 0.8 mg/dL 0.8-1. 3 Not Available [address], [address], 07/26/2023 11:47:40 07/25/19 24 07/26/2023 COMP. METAB OLIC PANEL B/C 6.3 ratio Not Available [address], [address], 07/26/2023 11:47:40 07/25/19 24 07/26/2023 COMP. METAB OLIC PANEL GFR >=60ML /MIN mL/mi n normal >=60m L/min - Fely l or midly reduc ed <60mL /min- Decre ased kidne y funct ion <15mL /min - Kidne y failu re [facility] calcu lates estim ated Glome rular Filtr ation Rate (eGFR ) using the Chron ic Kidne y Disea se Epide miolo gy Colla borat ion (CKD- EPI) Equat ion (Brii r et. al 2020) as recom domo d by the Natio nal Kidne y Found ation . eGFR is based on age, serum creat inine , and sex. CKD-E PI does not calcu late eGFR by race, does not apply to child arnoldo (age <18 years ), and shoul d not be used in pregn kirk. Not Available [address], [address], 07/26/2023 11:47:40 07/25/19 24 07/26/2023 COMP. METAB OLIC PANEL sodium 137 mmol/ L 136-14 5 Not Available [address], [address], 07/26/2023 11:47:40 07/25/19 24 07/26/2023 COMP. METAB OLIC PANEL potassium 4.2 mmol/ L 3.5-5. 1 Not Available [address], [address], 07/26/2023 11:47:40 07/25/19 24 07/26/2023 COMP. METAB OLIC PANEL chloride 102 mmol/ L 96-107 Not Available [address], [address], 07/26/2023 11:47:40 07/25/19 24 07/26/2023 COMP. METAB OLIC PANEL anion gap 9.6 5.0-15 .0 Not Available [address], [address], 07/26/2023 11:47:40 07/25/19 24 07/26/2023 COMP. METAB OLIC PANEL CO2 25 mmol/ L 21-32 Not Available [address], [address], 07/26/2023 11:47:40 07/25/19 24 07/26/2023 COMP. METAB OLIC PANEL calcium 8.4 mg/dL 8.5-10 .3 low CWP=C onsis tent with previ ous. Not Available [address], [address], 07/26/2023 11:47:40 07/25/19 24 07/26/2023 COMP. METAB OLIC PANEL total protein 6.8 g/dL 6.4-8. 2 Not Available [address], [address], 07/26/2023 11:47:40 07/25/19 24 07/26/2023 COMP. METAB OLIC PANEL albumin 3.7 g/dL 3.4-5. 0 Not Available [address], [address], 07/26/2023 11:47:40 07/25/19 24 07/26/2023 COMP. METAB OLIC PANEL globulin 3.1 g/dL Not Available [address], [address], 07/26/2023 11:47:40 07/25/19 24 07/26/2023 COMP. METAB OLIC PANEL A/G 1.2 ratio 0.8-2. 0 Not Available [address], [address], 07/26/2023 11:47:40 07/25/19 24 07/26/2023 COMP. METAB OLIC PANEL total bilirubin 0.30 mg/dL 0.00-1 .00 Not Available [address], [address], 07/26/2023 11:47:40 07/25/19 24 07/26/2023 COMP. METAB OLIC PANEL AST 10 U/L 0-37 Not Available [address], [address], 07/26/2023 11:47:40 07/25/19 24 07/26/2023 COMP. METAB OLIC PANEL ALT 22 U/L 6-63 Not Available [address], [address], 07/26/2023 11:47:40 07/25/19 24 07/26/2023 COMP. METAB OLIC PANEL alk. phos. 112 U/L 50-136 Not Available [address], [address], 07/26/2023 11:47:40 07/25/19 24 07/29/2023 LANCE TIN ferritin 75 NG/mL 22-415 Not Available [address], [address], 07/29/2023 11:33:20 07/25/19 24 08/01/2023 RPR RPR NON-RE ACTIVE nonrea ctive Not Available [address], [address], 08/01/2023 14:51:09 01/24/20 24 01/24/2024 CBC WBC 7.64 K/? ? ?L 4.23-9 .07 Not Available [address], [address], 01/24/2024 15:26:59 01/24/20 24 01/24/2024 CBC RBC 5.08 M/? ? ?L 4.63-6 .08 Not Available [address], [address], 01/24/2024 15:26:59 01/24/20 24 01/24/2024 CBC HGB 14.8 g/dL 13.7-1 7.5 Not Available [address], [address], 01/24/2024 15:26:59 01/24/20 24 01/24/2024 CBC HCT 45.1 % 40.1-5 1.0 Not Available [address], [address], 01/24/2024 15:26:59 01/24/20 24 01/24/2024 CBC MCV 88.8 fL 79.0-9 2.2 Not Available [address], [address], 01/24/2024 15:26:59 01/24/20 24 01/24/2024 CBC MCH 29.1 pg 25.7-3 2.2 Not Available [address], [address], 01/24/2024 15:26:59 01/24/20 24 01/24/2024 CBC MCHC 32.8 g/dL 32.3-3 6.5 Not Available [address], [address], 01/24/2024 15:26:59 01/24/20 24 01/24/2024 CBC plt 244 K/? ? ?L 163-33 7 Not Available [address], [address], 01/24/2024 15:26:59 01/24/20 24 01/24/2024 CBC MPV 9.0 fL 9.4-12 .4 low Not Available [address], [address], 01/24/2024 15:26:59 01/24/20 24 01/24/2024 CBC neut% 72.4 % 34.0-6 7.9 high Not Available [address], [address], 01/24/2024 15:26:59 01/24/20 24 01/24/2024 CBC neut# 5.53 1.78-5 .38 high Not Available [address], [address], 01/24/2024 15:26:59 01/24/20 24 01/24/2024 CBC lymph % 19.0 % 21.8-5 3.1 low Not Available [address], [address], 01/24/2024 15:26:59 01/24/20 24 01/24/2024 CBC lymph # 1.45 K/? ? ?L 1.32-3 .57 Not Available [address], [address], 01/24/2024 15:26:59 01/24/20 24 01/24/2024 CBC mono% 7.2 % 5.3-12 .2 Not Available [address], [address], 01/24/2024 15:26:59 01/24/20 24 01/24/2024 CBC mono# 0.55 0.30-0 .82 Not Available [address], [address], 01/24/2024 15:26:59 01/24/20 24 01/24/2024 CBC eo% 0.0 % 0.8-7. 0 low Not Available [address], [address], 01/24/2024 15:26:59 01/24/20 24 01/24/2024 CBC eo# 0.00 0.04-0 .54 low Not Available [address], [address], 01/24/2024 15:26:59 01/24/20 24 01/24/2024 CBC baso% 0.9 % 0.2-1. 2 Not Available [address], [address], 01/24/2024 15:26:59 01/24/20 24 01/24/2024 CBC baso# 0.07 0.00-0 .08 Not Available [address], [address], 01/24/2024 15:26:59 01/24/20 24 01/24/2024 CBC RDW-CV 15.7 % 11.6-1 4.4 high Not Available [address], [address], 01/24/2024 15:26:59 01/24/20 24 01/24/2024 CBC Ig% 0.500 % 0.000- 1.500 Ig % >0.5 Indic ates possi ble Left Shift Not Available [address], [address], 01/24/2024 15:26:59 09/20/20 24 01/24/2024 CBC Ig# 0.040 0.000- 0.093 Not Available [address], [address], 01/24/2024 15:26:59 01/24/20 24 01/24/2024 CBC NRBC% 0.0 % 0.0-0. 2 Not Available [address], [address], 01/24/2024 15:26:59 01/24/20 24 01/24/2024 CBC NRBC# 0.000 0.000- 0.012 Not Available [address], [address], 01/24/2024 15:26:59 01/24/20 24 01/24/2024 HGB A1C hemoglobin A1C 5.8 % 4.8-6. 0 Goal: <7% in Patie nts with Diabe ada An A1c betwe en 5.7-6 .4% is ident ified as pre-d iabet es and sugge sts risk for progr essio n to diabe ada Two a1c value s of 6.5% or highe r is consi stent with a diagn osis of diabe ada but may need furth er confi rmati on Not Available [address], [address], 01/24/2024 15:56:58 01/24/20 24 01/24/2024 HGB A1C estimated average glucose 119.8 mg/dL Not Available [address], [address], 01/24/2024 15:56:58 01/24/20 24 01/24/2024 COMP. METAB OLIC PANEL glucose 106 mg/dL 70-100 high Not Available [address], [address], 01/24/2024 16:07:59 01/24/20 24 01/24/2024 COMP. METAB OLIC PANEL BUN 9 mg/dL 7-18 Not Available [address], [address], 01/24/2024 16:07:59 01/24/20 24 01/24/2024 COMP. METAB OLIC PANEL creatinine 0.9 mg/dL 0.8-1. 3 Not Available [address], [address], 01/24/2024 16:07:59 01/24/20 24 01/24/2024 COMP. METAB OLIC PANEL B/C 10.0 ratio Not Available [address], [address], 01/24/2024 16:07:59 01/24/20 24 01/24/2024 COMP. METAB OLIC PANEL GFR >=60ML /MIN mL/mi n normal >=60m L/min - Fely l or midly reduc ed <60mL /min- Decre ased kidne y funct ion <15mL /min - Kidne y failu re [facility] calcu lates estim ated Glome rular Filtr ation Rate (eGFR ) using the Chron ic Kidne y Disea se Epide miolo gy Colla borat ion (CKD- EPI) Equat ion (Brii r et. al 2020) as recom domo d by the Natio nal Kidne y Found ation . eGFR is based on age, serum creat inine , and sex. CKD-E PI does not calcu late eGFR by race, does not apply to child arnoldo (age <18 years ), and shoul d not be used in pregn kirk. Not Available [address], [address], 01/24/2024 16:07:59 01/24/20 24 01/24/2024 COMP. METAB OLIC PANEL sodium 140 mmol/ L 136-14 5 Not Available [address], [address], 01/24/2024 16:07:59 01/24/20 24 01/24/2024 COMP. METAB OLIC PANEL potassium 4.0 mmol/ L 3.5-5. 1 Not Available [address], [address], 01/24/2024 16:07:59 01/24/20 24 01/24/2024 COMP. METAB OLIC PANEL chloride 103 mmol/ L 96-107 Not Available [address], [address], 01/24/2024 16:07:59 01/24/20 24 01/24/2024 COMP. METAB OLIC PANEL anion gap 11.6 5.0-15 .0 Not Available [address], [address], 01/24/2024 16:07:59 01/24/20 24 01/24/2024 COMP. METAB OLIC PANEL CO2 25 mmol/ L 21-32 Not Available [address], [address], 01/24/2024 16:07:59 01/24/20 24 01/24/2024 COMP. METAB OLIC PANEL calcium 8.2 mg/dL 8.5-10 .3 low Not Available [address], [address], 01/24/2024 16:07:59 01/24/20 24 01/24/2024 COMP. METAB OLIC PANEL total protein 7.3 g/dL 6.4-8. 2 Not Available [address], [address], 01/24/2024 16:07:59 01/24/20 24 01/24/2024 COMP. METAB OLIC PANEL albumin 3.8 g/dL 3.4-5. 0 Not Available [address], [address], 01/24/2024 16:07:59 01/24/20 24 01/24/2024 COMP. METAB OLIC PANEL globulin 3.5 g/dL Not Available [address], [address], 01/24/2024 16:07:59 01/24/20 24 01/24/2024 COMP. METAB OLIC PANEL A/G 1.1 ratio 0.8-2. 0 Not Available [address], [address], 01/24/2024 16:07:59 01/24/20 24 01/24/2024 COMP. METAB OLIC PANEL total bilirubin 0.50 mg/dL 0.00-1 .00 Not Available [address], [address], 01/24/2024 16:07:59 01/24/20 24 01/24/2024 COMP. METAB OLIC PANEL AST 8 U/L 0-37 Not Available [address], [address], 01/24/2024 16:07:59 01/24/20 24 01/24/2024 COMP. METAB OLIC PANEL ALT 23 U/L 6-63 Not Available [address], [address], 01/24/2024 16:07:59 01/24/20 24 01/24/2024 COMP. METAB OLIC PANEL alk. phos. 108 U/L 50-136 Not Available [address], [address], 01/24/2024 16:07:59 01/24/20 24 01/24/2024 LIPID PANEL cholesterol 179 mg/dL <200 mg/dl Vasiliy able 200-2 39 mg/dl Borde rline High >240 mg/dl High Not Available [address], [address], 01/24/2024 16:08:00 01/24/20 24 01/24/2024 LIPID PANEL triglyceride s 81 mg/dL <150 mg/dL Fely l 150-1 99 mg/dL Borde rline High 200-4 99 mg/dL High >500 mg/dL Very High Not Available [address], [address], 01/24/2024 16:08:00 01/24/20 24 01/24/2024 LIPID PANEL direct HDL 50 mg/dL <40 mg/dl - Major Risk for CHD >60 mg/dl - Negat melba Risk for CHD Not Available [address], [address], 01/24/2024 16:08:00 01/24/20 24 01/24/2024 DIREC T LDL direct LDL 105 mg/dL RISK CATEG ORY LDL GOAL _ CHD or CHD Risk Equiv alent s <100 mg/dl (10-y ear risk >20%) 2+ Risk Facto rs <130 mg/dl (10-y ear risk <= 20%) 0-1 Risk Facto r? <160 mg/dl ? Almos t all peopl e with 0-1 risk facto r have a 10 year risk <10%, thus 10 year risk asses ment in peopl e with 0-1 risk facto r is not neces zenia. Not Available [address], [address], 01/24/2024 16:08:00 01/27/20 24 01/27/2024 elect rocar diogr am No observ ation record ed. [address], [address], 01/27/2024 17:45:18 01/27/20 24 elect rocar diogr am No observ ation record ed. [email or web address] Not Available 2023 17:45:18 06/01/19 25 06/01/2024 elect rocar diogr am No observ ation record ed. [address], [address], 06/01/2024 16:59:11 06/01/19 25 mariya bower am No observ ation record ed. [email or web address] Not Available 05/07 16:40:20 Result Notes None recorded. Problems Name Problem SNOMED Code Status Onset Date Resolution Date Notes Provider Name and Address Organization Details Recorded Time Inflammat ory spondylop athy Active 2006 Betsey Maxwell Jr. MD [address] [place] [address], [address] , [facility] 2 05:23:34 Knee joint effusion 696037452 Completed 200603/25/2013 Not Available [facility] 3 02:03:44 Joint pain in ankle and foot Completed 03/25/2013 Not Available [facility] 3 02:01:26 Anemia 729951405 Completed 200605/09/2016 Taran Watt PA-C [address] [place] [address], [address] , [facility] 7 15:17:41 Back problem 378033998 Completed 200605/09/2016 Taran Watt PA-C [address] [place] [address], [address] , [facility] 7 15:17:45 Joint pain 77213899 Completed 200705/09/2016 Taran Watt PA-C [address] [place] [address], [address] , [facility] 7 15:18:20 Glucose level outside reference range 560022370 Completed 05/09/2016 Taran Watt PA-C [address] [place] [address], [address] , [facility] 7 15:17:19 Malaise and fatigue 680491774 Completed 200603/25/2013 Not Available [facility] 3 02:00:20 Ankylosin g spondylit is 2431388 Active 2006 Betsey Maxwell Jr. MD [address] [place] [address], [address] , [facility] 2 05:23:22 Neck pain 71210524 Completed 05/09/2016 Taran Watt PA-C [address] [place] [address], , [facility] 7 15:18:26 Backache 482760538 Completed 05/09/2016 Taran Watt PA-C [address] [place] [address], , [facility] 7 15:17:27 Tobacco user 828793518 Completed 07/10/2016 Taran Watt PA-C [address] [place] [address], , [facility] 7 15:27:11 Nicotine dependenc e 59199451 Completed 05/09/2016 Taran Watt PA-C [address] [place] [address], , [facility] 7 15:18:12 Long-term current use of non-stero idal anti-infl ammatory drug Active 2015 Betsey Maxwell Jr. MD [address] [place] [address], , [facility] 2 05:25:16 Bipolar disorder 75233702 Active 2016 Betsey Maxwell Jr. MD [address] [place] [address], , [facility] 2 05:23:58 History of cocaine abuse 67077655272 9106 Active 2016 Betsey Maxwell Jr. MD [address] [place] [address], , [facility] 2 05:24:17 Asthma 260146225 Active 2016 Betsey Maxwell Jr. MD [address] [place] [address], , [facility] 2 05:23:29 Essential hypertens ion 25086174 Completed 201607/23/2017 Taran Watt PA-C [address] [place] [address], , [facility] 8 13:08:02 Schizoaff ective disorder 41056498 Active 2017 Betsey Maxwell Jr. MD [address] [place] [address], [address] , [facility] 2 05:23:46 Benign essential hypertens ion 8161328 Active 2017 Betsey Maxwell Jr. MD [address] [place] [address], [address] , [facility] 2 05:23:26 Body mass index 30+ - obesity 865973744 Active 2020 Betsey Maxwell Jr. MD [address] [place] [address], [address] , [facility] 2 05:25:07 Chronic alcoholis m in remission 058411882 Active 2021 Betsey Maxwell Jr. MD [address] [place] [address], [address] , [facility] 2 05:24:12 Nicotine dependenc e with current use 192300058 Active 2021 Betsey Maxwell Jr. MD [address] [place] [address], [address] , [facility] 2 05:24:47 Problem Notes None recorded. Procedures Surgical History Date Name Laterality Status Provider Name and Address Organization Details Recorded Time 01/27/20 Smoking cessation counseling completed [place], [address], [facility] 01/30/2024 05:00:56 01/27/20 Medicare Wellness Visit completed [place], [address], [facility] 01/27/2024 05:53:01 01/23/20 Smoking cessation counseling completed Carmen Peña MA [facility] 01/22/2023 10:30:22 01/23/20 Cardiovascular disease risk reduction counseling completed [place], [address], [facility] 01/29/2023 06:27:10 09/19/20 23 Medicare Annual Wellness Visit completed Carmen Peña [facility] 01/22/2023 10:28:43 12/26/19 22 Smoking cessation counseling completed Betsey Maxwell Jr. MD [address] [place] [address], [address], [facility] 12/27/2021 05:22:44 12/26/19 22 Alcohol use screening completed Tanesha Burnett [facility] 12/22/2021 10:18:30 12/26/19 22 Cardiovascular disease risk reduction counseling completed Tanesha Burnett [facility] 12/22/2021 10:18:30 12/26/19 22 Medicare Annual Wellness Visit completed Tanesha Burnett [facility] 12/25/2021 14:12:37 06/21/19 22 Asthma Control Test (12 + years old) completed Tanesha Burnett [facility] 06/21/2021 15:07:14 12/21/19 21 prevention-cardiov ascular risk reduction counseling completed Tanesha Burnett [facility] 12/19/2020 16:56:16 12/21/19 21 prevention-annual alcohol misuse screening completed Tanesha Burnett [facility] 12/19/2020 16:56:16 12/21/19 21 Medicare Annual Wellness Visit completed Tanesha Burnett [facility] 12/19/2020 16:56:58 12/21/19 20 Smoking cessation counseling completed Betsey Maxwell Jr. MD [address] [place] [address], [address], [facility] 12/23/2019 05:09:42 12/21/19 20 prevention-cardiov ascular risk reduction counseling completed Lashawn [facility] 12/21/2019 14:46:47 12/21/19 20 prevention-annual alcohol misuse screening completed Lashawn [facility] 12/21/2019 14:46:47 05/29/19 20 Knee (Left) Injection completed Nano Burnett MD [address] [place] [address], [phone], [facility] 05/29/2019 14:00:53 01/14/20 19 Knee (Right) Injection completed Nano Burnett MD [address] [place] [address], [address], [facility] 01/13/2019 16:24:23 09/20/19 19 Knee (Left) Injection completed Nano Burnett MD [address] [place] [address], [address], [facility] 09/20/2018 08:08:32 08/14/19 19 Medicare Annual Wellness Visit completed Shanika Young CMA [facility] 08/13/2018 14:43:59 05/23/19 19 Knee (Right) Injection completed Nano Burnett MD [address] [place] [address], [address], [facility] 05/23/2018 13:32:05 11/30/19 18 Smoking cessation counseling completed Leida Chavarria LPN [facility] 11/29/2017 13:15:04 10/15/19 18 Generic Procedure Template completed Nano Burnett MD [address] [place] [address], [address], [facility] 10/14/2017 18:29:44 07/24/19 18 Medicare Annual Wellness Visit completed Desiree Williamson [facility] 07/23/2017 12:51:25 01/31/20 17 Asthma Control Test (12 + years old) completed Kurtis Meza MA [facility] 01/30/2017 13:13:20 01/12/20 17 Knee (Right) Injection completed Nano Burnett MD [address] [place] [address], [phone], [facility] 01/11/2017 13:53:37 10/06/19 17 Knee (Right) Injection completed Nano Burnett MD [address] [place] [address], [phone], [facility] 10/06/2016 09:44:02 09/11/19 17 Knee (Left) Injection completed Nano Burnett MD [address] [place] [address], [address], [facility] 09/10/2016 16:01:31 07/11/19 17 Carbon Monoxide Testing completed Kurtis Meza MA [facility] 07/10/2016 15:17:55 06/12/19 17 Smoking cessation counseling completed Kurtis Meza [facility] 06/12/2016 14:50:54 06/12/19 17 Medicare Wellness Visit completed Taran Watt PA-C [address] [place] [address], [address], [facility] 06/12/2016 14:58:54 06/12/19 17 Carbon Monoxide Testing completed Kurtis Meza [facility] 06/12/2016 14:49:12 05/09/19 17 Smoking cessation counseling completed Kurtis Meza [facility] 05/09/2016 14:38:08 05/09/19 17 Carbon Monoxide Testing completed Kurtiskate Meza [facility] 05/09/2016 14:50:14 03/12/20 16 Smoking cessation counseling completed Adelso Magaña LPN [facility] 03/12/2016 11:04:29 08/30/19 16 Smoking cessation counseling completed Nano Burnett MD [address] [place] [address], [address], [facility] 08/30/2015 19:22:55 10/14/19 11 Generic Procedure Template completed Nano Burnett MD [address] [place] [address], [phone], [facility] 10/13/2010 13:00:01 05/06/18 82 Tonsillectomy completed Taran Watt PA-C [address] [place] [address], [phone], [facility] 05/09/2016 15:13:28 05/06/18 76 Frenulectomy/frene ctomy completed Taran Watt PA-C [address] [place] [address], [address], [facility] 05/09/2016 15:13:11 Imaging Results Imaging Date Name Status LastModified by Organization Details LastModified Time 01/27/2024 electrocardiogram completed [address], [address], 01/27/2024 17:45:18 01/27/2024 electrocardiogram completed [email or web address] Informa tion not available 01/27/2024 17:45:18 06/01/2024 electrocardiogram completed [facility] [address], [place], [address], 06/01/2024 16:59:11 06/01/2024 electrocardiogram completed [email or web address] Inform ation not available 06/01/2024 16:40:20 Procedure Notes None recorded. Medical Equipment None Reported. Allergies No known drug allergies Medications Name Sig Start Date Stop Date Status Note LastModified by Organization Details LastModified Time arthritis pain reliever 650mg tabs 08/01 completed Not Available Not Available Not Available arthrts pain tab 650mg er 08/01 completed Not Available Not Available Not Available amantadin e HCl 100 mg tablet TAKE 1 TABLET BY MOUTH THREE TIMES DAILY NEEDED FOR CRAVINGS 07/31 completed Not Available Not Available Not Available amoxicill in 500 mg capsule 08/01 completed Not Available Not Available Not Available latanopro st 0.005 % eye drops INSTILL 1 DROP IN BOTH EYES AT BEDTIME 06/01 completed Not Available Not Available Not Available prednison e 10 mg tablet 12/03 completed duplicat e Not Available Not Available Not Available sulfasala zine 500 mg tablet TAKE 3 TABLETS BY MOUTH TWICE DAILY active Not Available Not Available No t Available quetiapin e 300 mg tablet TK 2 TS PO QHS 08/13 completed Not Available Not Available Not Available prednison e 20 mg tablet TAKE 1 TABLET BY MOUTH EVERY DAY FOR 7 DAYS 12/20 completed Not Available Not Available Not Available sulfasala zine 500 mg tablet,de layed release TAKE 4 TABLETS BY MOUTH TWICE DAILY 12/20 completed Not taking Not Available Not Available Not Available trifluope razine 5 mg tablet Take 2.5 tablets twice a day by oral route. active Not Available Not Available No t Available Seroquel 25 mg tablet PRN 05/07 completed Not Available Not Available Not Available Indocin 25 mg capsule TAKE 2 CAPSULES BY MOUTH 3 TIMES DAILY 2012 active change in dose Not Available Not Available Not Available travopros t 0.004 % eye drops INSTILL 1 DROP IN BOTH EYES AT BEDTIME active Not Available Not Available No t Available oxcarbaze pine 300 mg tablet TAKE 2 TABLETS BY MOUTH TWICE DAILY. DISCONTI EUGENIAE PREVIOUS SCRIPT active Not Available Not Available No t Available peg-elect rolyte solution 420 gram oral solution 09/19 completed Not Available Not Available Not Available amantadin e HCl 100 mg capsule TAKE 1 CAPSULE BY MOUTH TWICE DAILY NEEDED FOR CRAVINGS 08/01 completed Not Available Not Available Not Available acetamino phen 500 mg tablet active Not Available Not Available No t Available amoxicill in 500 mg tablet TAKE 1 TABLET BY MOUTH THREE TIMES DAILY 06/21 completed Not Available Not Available Not Available acetamino phen ER 650 mg tablet,ex tended release 12/25 completed Not Available Not Available Not Available ketorolac 0.5 % eye drops INSTILL 1 DROP IN RIGHT EYE THREE TIMES DAILY FOR 3 DAYS THEN STOP 06/01 completed Not Available Not Available Not Available Sulfazine EC 500 mg tablet,de layed release 3 po bid 05/07 completed Not Available Not Available Not Available prednison e 10 mg tablets in a dose pack take dose pack as directed 12/20 completed Not taking Not Available Not Available Not Available DOK 100 mg capsule TAKE 1 CAPSULE BY MOUTH 2 TIMES A DAY NEEDED FOR CONSTIPA TION 09/12 completed Not Available Not Available Not Available trazodone 100 mg tablet 05/25 completed 1 time a day Not Available Not Available Not Available Celexa 20 mg tablet Take 1 tablet every day by oral route. active Not Available Not Available No t Available lisinopri l 10 mg tablet TAKE 1 TABLET BY MOUTH EVERY DAY active Not Available Not Available No t Available brimonidi ne 0.2 % eye drops INSTILL 1 DROP BOTH EYES TWICE DAILY active Not Available Not Available No t Available indometha elizabeth 50 mg capsule TAKE 1 CAPSULE BY MOUTH TWICE DAILY active Not Available Not Available No t Available omeprazol e 20 mg capsule,d elayed release TAKE 1 CAPSULE BY MOUTH EVERY MORNING 1 HOUR BEFORE MEALS active Not Available Not Available No t Available trifluope razine 10 mg tablet 09/19 completed Duplicat e/ Takes two 5mg tabs BID/Rx Milton Jarrett Not Available Not Available Not Available folic acid 1 mg tablet TAKE 1 TABLET BY MOUTH EVERY DAY active Not Available Not Available No t Available monteluka st 10 mg tablet TAKE 1 TABLET BY MOUTH EVERY DAY 07/23 completed Not Available Not Available Not Available Seroquel 100 mg tablet Take 1 tablet twice a day by oral route. 08/13 completed PRN Not Available Not Available Not Available polyethyl luisito glycol 3350 17 gram/dose oral powder TAKE 17G BY MOUTH IN LIQUID AND DRINK TWICE DAILY active Not Available Not Available No t Available ketoconaz ole 2 % topical cream APPLY TO THE AFFECTED AREA(S) BY TOPICAL ROUTE ONCE DAILY 07/23 completed Not Available Not Available Not Available indometha elizabeth ER 75 mg capsule,e xtended release Take 1 capsule twice a day by oral route. 05/09 completed Not Available Not Available Not Available sodium fluoride 1.1 % dental gel 01/22 completed Not Available Not Available Not Available amoxicill in 875 mg-potass ium clavulana te 125 mg tablet TAKE 1 TABLET BY MOUTH TWICE DAILY FOR 10 DAYS 01/26 completed Not Available Not Available Not Available Ventolin HFA 90 mcg/actua tion aerosol inhaler INHALE 2 PUFFS PO Q 4 HOURS PRN 01/22 completed Not Available Not Available Not Available oxycodone 5 mg tablet TAKE 1 TABLET BY MOUTH EVERY 4 HOURS NEEDED FOR SEVERE PAIN 09/12 completed Not Available Not Available Not Available nicotine (polacril ex) 2 mg buccal lozenge Take by oral route. active Not Available Not Available No t Available Equate Nicotine Gum 2 mg Chew 1 piece of gum every 2 hours by oral route. 07/01 completed Not Available Not Available Not Available Seroquel 300mg daily 05/07 completed 50mg @ 7am, 50mg @ noon, 300mg @ bedtime Not Available Not Available Not Available Navane 08/30 completed Not Available Not Available Not Available trifluope razine 10/14 completed 2.5 mg BID Not Available Not Available Not Available Trileptal 900 MG BID 08/13 completed Not Available Not Available Not Available quetiapin e 50 mg tablet TAKE 1 TABLET BY MOUTH TWICE DAILY NEEDED FOR ANXIETY 01/22 completed Not Available Not Available Not Available quetiapin e 400 mg tablet TAKE 1 TABLET BY MOUTH AT BEDTIME. DISCONTI NUE PREVIOUS SCRIPT active Not Available Not Available No t Available ProAir HFA 06/12 completed Not Available Not Available Not Available budesonid e-formote rol HFA 160 mcg-4.5 mcg/actua tion aerosol inhaler INHALE 2 PUFFS BY MOUTH TWICE DAILY 08/10 completed no longer covered as of 08/10/2020 Not Available Not Available Not Available Symbicort 06/12 completed Not Available Not Available Not Available iron 27 mg iron tablet Take 1 tablet every day by oral route. active taking 65 mg Not Available Not Available Not Available ProChambe r USE DIRECTED 12/25 completed Not Available Not Available Not Available Dulera 200 mcg-5 mcg/actua tion HFA aerosol inhaler INHALE 2 PUFFS BY MOUTH TWICE A DAY 2024 active Not Available Not Available Not Avai lable PreviDent 5000 Booster Plus 1.1 % dental paste USE TWICE DAILY active Not Available Not Available No t Available Hemorrhoi ismael (phenylep h-cocoa) 0.25 %-88.44 % rectal supposito ry UNWRAP AND INSERT 1 SUP REC TID PRN 12/20 completed not taking 07/01/20 Not Available Not Available Not Available Vraylar 3 mg capsule Take 2 capsules every day by oral route. 05/07 completed Not Available Not Available Not Available Anusol-HC 2.5 % topical cream with perineal applicato r APPLY A THIN LAYER TO THE AFFECTED AREA(S) BY TOPICAL ROUTE 2-4 TIMESDAI LY 07/23 completed Not Available Not Available Not Available Humira(CF ) Pen 40 mg/0.4 mL subcutane ous kit INJECT 40 MG UNDER SKIN EVERY WEEK active Not Available Not Available No t Available Sodium Fluoride 5000 Plus 1.1 % dental cream 12/25 completed Not Available Not Available Not Available COVID-19 test specimen collectio n DIRECTED 06/21 completed Not Available Not Available Not Available Fluarix Quad (PF) 60 mcg (15 mcg x 4)/0.5 mL IM syringe ADM 0.5ML IM UTD 06/03 completed Not Available Not Available Not Available Vitals Date Recorded Body height Body mass index (BMI) Body weight Respiratory rate Oxygen saturation Oxygen saturation in Arterial blood by Pulse oximetry Heart rate Systolic blood pressure Diastolic blood pressure Provider Name and Address Organization Details Last Updated DateTime 3 179.07 cm 35.1 kg/m2 271676. 01 g 18 /min 97 % 97 % 84 /min 116 mm[Hg] 82 mm[Hg] Tanesha Burnett [facility] 3 14:02:15 Date Recorded Body height Body mass index (BMI) Body weight Heart rate Oxygen saturation Oxygen saturation in Arterial blood by Pulse oximetry Systolic blood pressure Diastolic blood pressure Provider Name and Address Organization Details Last Updated DateTime 3 179.07 cm 35.5 kg/m2 850181. 4 g 93 /min 96 % 96 % 118 mm[Hg] 78 mm[Hg] Carmen Peña [facility] 3 14:34:52 Date Recorded Body height Body mass index (BMI) Body weight Heart rate Oxygen saturation Oxygen saturation in Arterial blood by Pulse oximetry Systolic blood pressure Diastolic blood pressure Provider Name and Address Organization Details Last Updated DateTime 4 179.07 cm 36.8 kg/m2 226344. 02 g 90 /min 95 % 95 % 118 mm[Hg] 76 mm[Hg] Jazmyn Poole FL[employer] [facility] 4 15:25:04 Date Recorded Body height Body mass index (BMI) Body weight Heart rate Oxygen saturation Oxygen saturation in Arterial blood by Pulse oximetry Systolic blood pressure Diastolic blood pressure Provider Name and Address Organization Details Last Updated DateTime 4 179.07 cm 38.3 kg/m2 065693. 53 g 78 /min 95 % 95 % 130 mm[Hg] 60 mm[Hg] Jazmyn Poole [employer] 4 15:08:31 Date Recorded Body height Body mass index (BMI) Body weight Oxygen saturation Oxygen saturation in Arterial blood by Pulse oximetry Heart rate Systolic blood pressure Diastolic blood pressure Provider Name and Address Organization Details Last Updated DateTime 5 179.07 cm 38.9 kg/m2 381727. 9 g 97 % 97 % 87 /min 116 mm[Hg] 76 mm[Hg] Faby Cheung [facility] 5 16:28:14 Social History Question Answer Notes LastModified by Organizat ion Details LastModified Time Tobacco Smoking Status Former Smoker quit May 2016 YOCASTA Kraus, [facility] 01/22/2023 14:32:04 What Is Your Level Of Alcohol Consumption? None Last Drink 01/12/17 Information not available 01/22/2023 What Is Your Level Of Caffeine Consumption? Moderate Drinking Diet Coke, 4-5 16oz Drinks Per Day Information not available 12/20/2020 How Much Tobacco Do You Chew? None Information not available 05/09/2016 Are You Currently Employed? No Information not available 01/22/2023 What Type Of Diet Are You Following? REGULAR Information not available 03/22/2011 Which Illicit Or Recreational Drugs Have You Used? Prior Cocaine Use Has Been Clean Since Moving To [place] 11/2015 Pt Reports Relapse Cocaine On 12/10/21 [email or web address] Information not available 12/25/2021 Do You Or Have You Ever Used E-cigarettes Or Vape? Never Used Electronic Cigarettes [email or web address] Information not available 06/17/2019 Education 12 1 Year Of College Information not available 05/09/2016 What Is The Highest Grade Or Level Of School You Have Completed Or The Highest Degree You Have Received? 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 No Smoked Crack Cocaine 3-4 Days Ago After Being Siber For 5 Months Information not available 01/22/2023 When Did You Quit Smoking? 1-5yearssince lastcigarette 04/2017 [email or web address] Information not available 12/25/2021 Are There Any Guns Present In Your Home? No Information not available 05/09/2016 Do You Use Insect Repellent Routinely? Yes Information not available 01/22/2023 Live Alone Or With Others? Alone Information not available 05/09/2016 CCM Consent Discussion 05/09/2016 Information not available 05/09/2016 Marital Status Single Information not available 03/22/2011 Mosquito Repellent Used Routinely No Information not available 05/09/2016 What Was The Date Of Your Most Recent Tobacco Screening? 01/27/2024 [email or web address] Information not available 01/27/2024 How Many Children Do You Have? 0 Information not available 05/09/2016 What Is Your Current Pack Years? 10-19packyear s 8 Years X 1-2 PPD Information not available 05/09/2016 What Is Your Relationship Status? Single Information not available 01/22/2023 Do You Use Your Seat Belt Or Car Seat Routinely? Yes [email or web address] Information not available 12/20/2020 Seat Belts Used Routinely Yes Information not available 05/09/2016 Are You Sexually Active? No H/o HPV Information not available 05/09/2016 Smoke Alarm In Home Yes Information not available 05/09/2016 Do You Have Smoke And Carbon Monoxide Detectors In Your Home? Yes [email or web address] Information not available 12/20/2020 Are You Passively Exposed To Smoke? No Information not available 12/20/2020 Do You Or Have You Ever Used Smokeless Tobacco? Never Used Smokeless Tobacco [email or web address] Information not available 06/17/2019 How Much Tobacco Do You Smoke? No [email or web address] Information not available 06/17/2019 General Stress Level Medium Information not available 05/09/2016 Do You Use Sunscreen Routinely? Yes Information not available 01/22/2023 How Many Years Have You Smoked Tobacco? 8 [email or web address] Information not available 06/17/2019 Do You Or Have You Ever Used Any Other Forms Of Tobacco Or Nicotine? Yes Information not available 12/25/2021 Sex: Male Functional Status Question Answer Note LastModified by Organization D etails LastModified Time What is your exercise level? Moderate Information not available 01/22/2023 Mental Status None recorded. Family History Relationship Description Onset Age of this Age Resolved Age Notes LastModified by Organization Details LastModified Time Mother Malignant tumor of lung [email or web address] Not available 2015 19:18:34 Mother Parkinsonism [email or web address] Not avai lable 01/22/2023 14:49:30 Father Diabetes mellitus [email or web address] Not available 2019 15:16:57 Father Congestive heart failure [email or web address] Not available 2022 14:50:09 Father Coronary atherosclero sis CABG [email or web address] Not available 2022 14:50:24 Maternal Grandmother Diabetes mellitus [email or web address] Not available 2022 14:48:50 Paternal Grandfather Coronary atherosclero sis [email or web address] Not available 2022 14:49:12 Medical History Condition Response Obesity Y Spondylitis Y Asthma Y Substance Abuse Y Bipolar Disorder Y Hypertension Y Immunizations Vaccine Type Date Status Note Provider Nam e and Address Organization Details Recorded Time pneumococcal polysaccharide PPV23 7 completed Not Available [facility] 05/23/2019 02:32:27 Influenza, split virus, quadrivalent, PF 7 completed Not Available [facility] 05/23/2019 02:29:21 Influenza, split virus, quadrivalent, PF 8 completed Not Available [facility] 05/23/2019 02:22:58 influenza, unspecified formulation 6 completed [facility] 05/09/2016 14:44:25 influenza, unspecified formulation 3 completed [facility] 05/30/2016 14:12:09 influenza, unspecified formulation 1 completed [facility] 05/30/2016 14:12:36 Td(adult) unspecified formulation 1 completed [facility] 05/30/2016 14:13:12 Td (adult) 0 completed [facility] 05/30/2016 14:13:43 influenza, unspecified formulation 5 completed [facility] 05/30/2016 14:14:57 Influenza, split virus, quadrivalent, PF 9 completed Not Available [facility] 05/23/2019 02:37:13 Pneumococcal conjugate PCV 13 1 completed Alma Delia Cote [facility] 10/31/2020 15:42:42 Tdap 1 completed T[facility] Burnett C[facility] 12/20/2020 16:13:10 Influenza, split virus, quadrivalent, preservative 11/17/202 0 completed Lashawn Vaz null, [facility] 03/23/2020 13:23:42 COVID-19, mRNA, LNP-S, PF, 100 mcg/0.5mL dose or 50 mcg/0.25mL dose 1 completed Kaylan Curiel FLIGHT HOSTESS null, [facility] 09/12/2020 15:58:24 COVID-19, mRNA, LNP-S, PF, 100 mcg/0.5mL dose or 50 mcg/0.25mL dose 1 completed Kaylan Curiel FLIGHT HOSTESS null, [facility] 09/12/2020 15:58:44 COVID-19, mRNA, LNP-S, PF, 30 mcg/0.3 mL dose 1 completed Tanesha Burnett CMA null, [facility] 06/21/2021 15:06:16 Past Encounters Encounter ID Performer Location Encounter Start Date Encounter Closed Date Diagnosis/Indication Diagnosis SNOMED-CT Code Diagnosis ICD10 Code Diagnosis Note [id number] Radiology , [address] [place] [address] 07/09/2006 15:01:56 07/10/2006 06:29:21 [id number] Livan bright [address] [place] [address] 07/09/2006 13:35:25 07/10/2006 14:38:56 [id number] LAB - [address] [place] [address] 1 07/09/2006 14:36:23 07/09/2006 14:36:32 [id number] Rheumatol kaila [address] [place] [address] 1 07/25/2006 10:43:33 07/25/2006 14:08:21 [id number] LAB - [address] [place] [address] 08/15/2006 11:05:12 08/15/2006 11:05:19 [id number] Rheumatol kaila [address] [place] [address] 1 08/15/2006 10:29:47 08/19/2006 06:46:00 [id number] Rheumatol kaila [facility] [place] [address] 10/15/2006 11:00:14 10/15/2006 17:44:49 [id number] LAB - [facility] [place] [address] 1 10/15/2006 11:43:01 10/15/2006 11:43:13 [id number] Rheumatol kaila [facility] [place] [address] 1 01/28/2007 15:41:36 01/30/2007 07:47:56 [id number] LAB - [facility] [place] [address] 1 01/28/2007 16:18:28 01/28/2007 16:18:34 [id number] Rheumatol kaila [facility] [place] [address] 1 04/18/2007 14:35:13 05/26/2008 02:02:29 [id number] Rheumatol kaila [facility] [place] [address] 1 09/22/2007 13:29:07 05/26/2008 02:02:29 [id number] LAB - [facility] [place] [address] 1 09/22/2007 13:59:55 09/22/2007 14:00:13 [id number] Livan bright [facility] [place] [address] 1 03/23/2008 14:11:07 05/26/2008 02:02:29 [id number] LAB - [facility] [place] [address] 1 03/23/2008 15:06:42 03/23/2008 15:07:01 [id number] Rheumatol kaila [facility] [place] [address] 1 09/20/2008 13:15:15 09/21/2008 11:08:30 [id number] Rheumatol kaila [facility] [place] [address] 1 03/28/2009 14:50:18 03/29/2009 09:27:37 [id number] Rheumatol ogkhadijah [facility] [place], [place] [address] 10/14/2009 14:16:04 10/17/2009 09:21:08 [id number] Rheumatol kaila [facility] [place] [address] 1 04/18/2010 13:22:03 04/19/2010 09:18:18 [id number] Rheumatol kail[place] [address] [place] [address] 1 09/29/2010 14:58:37 10/03/2010 09:46:45 [id number] Radiology , [address] [place] [address] 1 09/29/2010 15:26:39 09/29/2010 15:45:19 [id number] Rheumatol kaila [facility] [place] [address] 1 10/13/2010 11:12:26 10/16/2010 09:01:59 [id number] Rheumatol kaila [address] [place] [address] 1 04/16/2011 14:05:18 04/17/2011 09:02:12 [id number] Rheumatol [facility] [address] [place] [address] 1 10/15/2011 14:22:38 10/16/2011 07:31:49 [id number] Nano Burnett MD Rheumatol kail[facility] [place] [address] 1 04/14/2012 14:12:06 04/14/2012 14:45:17 [id number] Rheumatol kaila [address] [place], [place] [address] 09/08/2012 13:21:27 09/08/2012 13:47:36 [id number] Rheumatol kail[place] [address] [place] [address] 1 12/15/2012 12:57:10 12/15/2012 13:20:50 Inflammatory spondylopathy 504412833 B27 +. Excellent sustained response of peripheral synovitis to the SSZ. Tolerating fine. Continue. Also stay on Indocin BID (could not get away with lower dose). Follow up 6 mo, update labs today. [id number] Rheumatol [address] [place] [address] 06/16/2013 14:52:59 06/17/2013 09:52:51 Inflammatory spondylopathy 025467452 B27 +. Excellent sustained response of peripheral synovitis to the SSZ. Tolerating fine. Bilateral trace to small effusion at the knees but no signs of redness or warmth. Continue current treatment. Follow up 6 mo, update labs today. [id number] [address] [place] [address] 11/27/2013 11:21:23 11/27/2013 13:49:08 Inflammatory spondylopathy 604443126 B27 +. Excellent sustained response of peripheral synovitis to the SSZ. Indomethac in helps. Tolerating fine. Some neck sx's which I think are more likely related to some disc disease, local muscle spasm than to spondyliti s. Follow up 6 mo, update labs today. Neck pain [id number] Neck and R sided upper back pain. No strong inflammato ry features. Most likely related to degen disc etc. Responding somewhat to PT. Long-term drug therapy [id number] detention SSZ. Needs repeat labs. On joint terminal attack controller Indocin. Has tried to reduce dose, but prompt flare in symptoms. [id number] [address] [place] [address] 08/30/2014 11:20:01 08/31/2014 09:41:58 Inflammatory spondylopathy 909791888 B27 +. Excellent sustained response of peripheral synovitis to the SSZ. Indomethac in helps. Tolerating fine. Mild neck sx's which I think are more likely related to some disc disease, local muscle spasm than to spondyliti s. Follow up 6 mo, update labs today. Backache [id number] Back stain related to recent exercise activity. I do not think this relates to his spondyliti s. Suggested restrict activity about I week and then restart exercise program gradually. Local measures . [id number] [address] [place] [address] 12/27/2014 11:19:30 12/28/2014 07:48:41 Inflammatory spondylopathy 385990675 B27 +. Excellent sustained response of peripheral synovitis to the SSZ. Indomethac in helps. Tolerating fine. Long-term drug therapy 733161929 detention SSZ. Needs repeat labs. On custodial Indocin. Has tried to reduce dose, but prompt flare in symptoms. Cervical radiculopathy [id number] Patient is describing symptoms suggesting a right C6 radiculopa thy with some persistent numbness in the index finger. He had somewhat similar symptoms once in the past. He has full strength. Reflexes are diminished but symmetrica l. I suppose it is possible this is a more peripheral radial nerve lesion, but there is no associated weakness and he has pain that goes all the way down from the neck to the index finger. He tells me that he has had symptoms for 3-4 weeks with gradual improvemen t. I suggested that he restrict his weight lifting temporaril y, avoiding any heavy weights in the upper body and being particular ly careful about the position of the barbell etc. when he is doing squats etc. If his symptoms get progressiv chris worse, he will need reevaluati on, probably referral to [facility] [id number] Nano Burnett MD [facility] [place] [address] [address] 08/30/2015 12:52:22 09/01/2015 06:34:44 Inflammatory spondylopathy 305030125 M46.90 B27 +. Excellent sustained response of peripheral synovitis to the SSZ. Indomethac in helps. Tolerating fine. Continue at current doses. Long-term drug therapy 696660481 Z79.899 long term SSZ. Needs repeat labs. On joint terminal attack controller Indocin. Has tried to reduce dose, but prompt flare in symptoms. Tobacco user 142572360 Z 72.0 Discussed with patient advisabili ty of smoking cessation. Specifical ly emphasized that, in addition to other ills, smoking promotes inflammati on and that arthritis patients who smoke have less of a response to the anti-rheum atic drugs than non smokers. Offered encouragem ent to stop smoking. Nicotine dependence 5629 5238 F17.026 [id number] Nano Burnett MD Rheumatol [facility], [address] [address] 03/12/2016 10:49:23 03/13/2016 07:31:20 Inflammatory spondylopathy 977881638 M46.90 B27 +. Excellent sustained response of peripheral synovitis to the SSZ. Indomethac in helps. Tolerating fine. Continue at current doses. Monitor labs on SSZ plus Indocin. Cigarette smoker 9593177 7 F17.210 Tobacco user 930631782 Z 72.0 Discussed with patient advisabili ty of smoking cessation. Specifical ly emphasized that, in addition to other ills, smoking promotes inflammati on and that arthritis patients who smoke have less of a response to the anti-rheum atic drugs than non smokers. Offered encouragem ent to stop smoking. Long-term current use of non-steroidal anti-inflammatory drug 8933829805 48006 Z79.1 Pt on joint terminal attack controller NSAID therapy. Discussed GI and cardiovasc ular risks. Periodic labs needed. Bipolar disorder 4681113 4 F31.9 Seems a little more pressured today. Tells me he has had some med adjustment s. Has close f/u with therapist. Move to [place] has been disruptive . [id number] Taran Watt PA-C , [facility], OFF[facility] [address] [facility] [place] [address] 05/09/2016 14:23:49 05/09/2016 15:33:15 Cigarette smoker 89290847 F17.210 Not interested in quitting. Though has the lozenges at home. He will think about it.Reminde d of health risks today including worsening lung function. Tobacco user 304584973 Z 72.0 Bipolar disorder 6882533 4 F31.9 Doing well currently. 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 History of cocaine abuse 6932581097 96769 F14.10 On and off for years 4880-2185. Clean for 6 months. Reinforced abstinence . Asthma 553359761 J45.90 9 Not well controlled . Using albuterol daily. Currently using Symbicort 160/4.5 2 puffs BID. Discussed proper use of inhalers today.Kerry denson. Consider PFTs, ACh for possible COPD.F/U 1 month. Elevated blood-pressure reading without diagnosis of hypertension 715750065 R03.0 Will recheck at next visit in 1 month. [id number] Taran Watt PA-C [facility], OFFICE [address] [place] [address] 06/12/2016 14:40:28 06/12/2016 15:27:23 Adult health examination 264476422 Z00.00 see Risk Assessment and Lifestyle Change Counseling section above Counseling 324157200 Z71 .9 Cigarette smoker 9230913 7 F17.210 Plans to quit after his final carton is finished.H as lozenges at home and is ready to use them. Tobacco user 240394358 Z 72.0 Obesity 839949385 E66.9 We discussed the risks related to obesity today, including HTN, CAD, DM, joint pain, and back pain.Recom mended healthier lifestyle choices including improved nutrition and increased exercise.W hole foods handout provided.A dvised weight loss SMA. Essential hypertension 65308323 I10 Elevated at consecutiv e visits. 136/[address] lisinopril 10mg.Check lipids, BMP.Rechec k 1 month. Asthma 934591302 J45.90 9 Improved since starting montelukas t.Still using albuterol once a day.Discus sed proper use of inhalers today. Virgilio tate is quitting smoking this month, so we will reassess at F/U in 1 month.Cons ider PFTs, ACh for possible COPD. Tinea cruris 666466476 B 35.6 Rash consistent with tinea cruris.Sta rt ketoconazo le topical x 2 weeks.Disc ussed keeping area clean and dry, avoid occlusive undergarme nts. Active or passive immunization 516447926 Z23 [id number] Taran Watt PA-C , [facility], OFFICE [address] [place] [address] 07/10/2016 15:08:47 07/10/2016 15:31:49 Nicotine dependence 16826508 F17.200 Successful ly quit. Using 4mg lozenges.S ending 2mg lozenges to taper. Asthma 671618904 J45.90 9 Well controlled . Improved since quitting smoking.Us ing albuterol only twice a week, prior to walking 2 miles to class. Essential hypertension 36710791 I10 BP at goal. No changes.F/ U 6 mos. [id number] Nano Burnett MD Rheumatol [address] [place] [address] 09/10/2016 12:52:37 09/10/2016 13:25:17 Inflammatory spondylopathy 079594920 M46.90 B27 +. SSZ + Indocin for years. Tolerating fine. Past few months pain and swelling knees.Has definite inflammato ry effusions today. Will inject L knee today, return for R knee in 3-4 wks Continue meds at current doses. However, if he does not get sustained improvemen t in knees from injeciton, then will need to consider medication change. Monitor labs on SSZ plus Indocin. Knee joint effusion 2022 40455 M25.462 symptomati c. Inflammato ry fluid. Injected [id number] Nano Burnett MD Rheumatol [address] [place] [address] 10/05/2016 12:59:05 10/08/2016 07:37:43 Inflammatory spondylopathy 404972227 M46.90 B27 +. SSZ + Indocin for years. Tolerating fine. Past few months pain and swelling knees.Has definite inflammato ry effusions today. excellent response to L knee injection. Will inject R knee today. Continue meds at current doses. However, if he does not get sustained improvemen t in knees from injeciton, then will need to consider medication change. Knee joint effusion 2022 87153 M25.461 symptomati c. Inflammato ry fluid. Injected [id number] Nano Burnett MD Rheumatol [address] [place] [address] 01/11/2017 12:54:46 01/11/2017 13:46:43 Inflammatory spondylopathy 049897945 M46.90 B27 +. SSZ + Indocin for years. Tolerating fine. Past few months pain and swelling knees.Has effusions today. excellent response to L knee injection 6 mo ago. . Will re-inject R knee today. Continue meds at current doses. Update labs on meds. Return 6 mo Knee joint effusion 2022 60996 M25.461 symptomati c. Inflammato ry fluid. Injected Long-term drug therapy 235168254 Z79.899 long term SSZ. Needs repeat labs. On joint terminal attack controller Indocin. Has tried to reduce dose, but prompt flare in symptoms. [id number] Taran Watt PA-C , [facility], OFFICE [address] [facility] [place] [address] 01/30/2017 12:40:50 01/30/2017 13:52:33 Asthma 917423069 J45.30 PERSISTENT (Mild) Based on history, physical assessment and peak flow the patient's asthma in control.Qu it smoking, and Kin wishes to trial stopping montelukas t.D/C today.F/U 6 months, sooner if using albuterol >2x/wk. Counseling 971299354 Z71 .9 Active or passive immunization 879408819 Z23 Essential hypertension 11866343 I10 BP at goal. No changes.F/ U 6 mos. Nicotine dependence 5629 4008 F17.200 Successful ly quit.Still using lozenges. Discussed tapering again today. Impaired f asting glycemia 639759721 R73.01 Fasting glu 104. Nutrition discussed at length today. Avoid refined carbs, veg oils.Check A1C 6 months. History of cocaine abuse 1592707018 43317 F14.21 On and off for years 8722-3747. Clean since 11/18.Appl auded his continued abstinence . [id number] Taran Watt PA-C , [facility], OFFICE [address] [place] [address] 03/12/2017 12:30:44 03/12/2017 13:00:12 Tinea cruris 971642356 B35.6 Rash consistent with tinea cruris.Sta rt ketoconazo le topical x 2 weeks.Disc ussed keeping area clean and dry, avoid occlusive undergarme nts. External hemorrhoids 239 87885 K64.4 Evident on exam.Trial topical HC.F/U with GI for hematochez ia, age>40 should have further eval. Hematochezia 466327951 K 62.5 [id number] Nano Burnett MD Rheumatol kaila, [facility] [address] [facility] [place] [address] 05/07/2017 15:31:44 05/07/2017 15:55:22 Inflammatory spondylopathy 435180241 M46.90 B27 +. SSZ + Indocin for years. Tolerating fine. Past few months pain and swelling knees.Has effusions today. excellent response to knee injections few mo ago. . Advised that he try to avoid high impact exercise. Discussed. Continue meds at current doses. Return 4 mo Knee joint effusion 2022 69592 M25.461 Previously , findings of inflammato ry fluid bilat.Mode rate effusion R, small on L. Not particular ly symptomati c. No aspiration or injection today. Return if becomes symptomati c. Bipolar disorder 6775533 4 F31.9 Recent hospitaliz ation with med adjustment .No longer paranoid. Depressed. Has close psych follow up. [id number] Jazz Thomas D.O. , [facility], OFFICE [address] [facility] [place] [address] 07/23/2017 12:28:14 07/23/2017 13:23:31 Adult health examination 847507453 Z00.00 see risk assessment and lifestyle change section Depression screening 171 330412 Z13.89 depression screening tool administer ed, entered into emr, scored and discussed, time greater than 7.5 minutes Bipolar disorder 9934820 4 F31.9 Doing well currently. Multiple prior hospitaliz ations, last 04/21.Ther apist Cisco Salinas, psychiatri [facility] . Schizoaffe ctive disorder 24045228 F25.9 Doing well currently. Hospitaliz ation in 04/21 for increasing paranoia, meds adjusted.T herapist Cisco Salinas, psychiatri [facility] . Counseling 334712083 Z71 .9 History of cocaine abuse 4625489932 05306 F14.21 On and off 8009-6605. Clean since 11/18.Appl auded his continued abstinence . Benign ess ential hypertension 1662748 I10 BP at goal. No changes. Asthma 010329864 J45.30 Well controlled .Kin has quit smoking and is still doing well off montelukas t.F/U 6 months, sooner if using albuterol >2x/wk. Obesity 337964052 E66.9 We discussed the risks related to obesity today, including HTN, CAD, DM, joint pain, and back pain. Recommende d healthier lifestyle choices including improved nutrition and increased exercise.W hole foods handout provided. [id number] Nano Burnett MD Rheumatol [address] [address] 08/27/2017 15:33:47 08/27/2017 16:16:46 Long-term current use of non-steroidal anti-inflammatory drug 5458146642 26972 Z79.1 Pt on joint terminal attack controller NSAID therapy. Discussed GI and cardiovasc ular risks. Periodic labs needed. Inflammato ry spondylopathy 893417819 M46.90 B27 +. SSZ + Indocin for years. Tolerating fine. Occasional swelling at knees. Responded to injections in the past; not needed today. Update xrays. Ankle sxs today with findings of reduced motion and some synovitis on R. Previously seen by Dr Patino (a few years ago). 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 x rays today.Prob ably some component of ongoing synovitis. Shaggy increasing dose SSZ to 2g bid; continue indomethac in. Return 6-8 weeks. If no improvemen t in synovitis ankles, perhaps need to consider adding MTX or perhaps TNF agent. Advised that he try to avoid high impact exercise. Discussed. [id number] Nano Burnett MD Rheumatol [address] [address] 10/14/2017 13:04:51 10/14/2017 13:58:40 Inflammatory spondylopathy 774598854 M46.90 B27 +. SSZ + Indocin for years. Tolerating fine. Occasional swelling at knees. Responded to injections in the past; not needed today. Still some synovitis at ankles. Can consider adding MTX, but I really think that issue is mostly DJD.Try local injection today. Degenerati ve joint disease of ankle AND/OR foot 07492358 M19.071 Ankle sxs today with findings of reduced motion and some synovitis on R. Previously seen by Dr Patino (a few years ago). Probably some component of ongoing synovitis, but suspect most of thiks is post-infla mmatory DJD.. Continue SSZ, continue indomethac in. Suggested he consult with podiatry for any further conservati ve measures for symptom control. Also, consult with Dr Patino. I am afraid he may be approachin g point were he will need surgical interventi on. Try local injection R tibio-ghazal r joint. Long-term current use of non-steroidal anti-inflammatory drug 2240545036 80671 Z79.1 Pt on joint terminal attack controller NSAID therapy. Discussed GI and cardiovasc ular risks. Periodic labs needed. [id number] Martine Singh DPM Podiatry, [address] [place] [address] 11/29/2017 12:30:08 11/29/2017 14:42:28 Cigarette smoker 54274611 F17.210 Smoking cessation counsellin cheli done. Pt not interested in getting assistance with quitting at this time. Tobacco user 969065124 Z 72.0 Inflammato ry spondylopathy 264487545 M46.90 Reviewed etiology with pt. Informed him that he may be prone to recurrent injury. Will need to wear ankle brace for support during physical activity if continuing with conservati ve care. Given handout on physical therapy excercises for foot and ankle conditioni ng. ASHLEY. Pt however at this time realizing that surgery is a good option for him. Pt will soon consult with Dr. Patino in [facility]opedic [facility]. RTC prn. Ankle pain 914328840 M25 .561 [id number] Nano Burnett MD Rheumatol ogy, [address] [place] [address] 01/14/2018 13:00:11 01/14/2018 13:39:55 Inflammatory spondylopathy 773315311 M46.90 B27 +. SSZ + Indocin for years. Tolerating fine. Occasional swelling at knees. Responded to injections in the past; not needed today. Still some synovitis at ankles. Can consider adding MTX, but I really think that issue is mostly DJD. Continue SSZ, continue indomethac in. RV with me 6 mo, sooner if needed. Degenerati ve joint disease of ankle AND/OR foot 51441979 M19.071 Ankle sxs today with findings of reduced motion and some synovitis on R.Probably some component of ongoing synovitis, but suspect most of thiks is post-infla mmatory DJD. Dr Patino saw him this summer. Surgical approach outlined. Patient wants to exhaust conservati ve measures. Should fill prescripti on for Liliana brace. Had repeat intra-macy cular injection by Dr Patino which was quite useful (more effective than my injection) . If / when he gets recurrent sxs, I would prefer he be injected by Dr Patino. Continue SSZ, continue indomethac in. RV with me 6 mo, sooner if needed. Long-term current use of non-steroidal anti-inflammatory drug [id number] 30533 Z79.1 Pt on joint terminal attack controller NSAID therapy. Discussed GI and cardiovasc ular risks. Periodic labs needed. [id number] Taran Watt PA-C , [facility], OFFICE [address] [facility] [address] 01/15/2018 12:30:55 01/15/2018 13:36:09 Asthma 139129898 J45.30 Well controlled . Rare albuterol use less than once a month.Lupe galicia has quit smoking and is still doing well off montelukas t. Benign ess ential hypertension 3495014 I10 Blood pressure at goal. No changes. Active or passive immunization 776394911 Z23 Injury of foot 002960991 S99.921A Continue warm soaks, pumice stone. [id number] Nano Burnett MD Rheumatol kaila, [facility] [address] [facility] [address] 05/23/2018 12:33:38 05/23/2018 13:15:43 Inflammatory spondylopathy 536321180 M46.90 B27 +. SSZ + Indocin for years. Tolerating fine. Occasional swelling at knees. Responded to injections in the past;R knee needs to be injected today. Still some synovitis at ankles. Can consider adding MTX, but I really think that issue is mostly DJD. Continue SSZ, continue indomethac in. RV with me 6 mo, sooner if needed. Knee joint effusion 2022 83936 M25.461 Previously , findings of inflammato ry fluid bilat.Mode rate effusion R, trace on L. R knee inj today. Long-term drug therapy 399838668 Z79.899 long term SSZ. Needs repeat labs next visit 3-4 mo;. On joint terminal attack controller Indocin. Has tried to reduce dose, but prompt flare in symptoms. [id number] Luis LACY, [facility], OFFICE [address] [facility] [address] 08/13/2018 14:42:50 08/13/2018 15:41:21 Adult health examination 061540485 Z00.00 see risk assessment and lifestyle change section Depression screening 171 185457 Z13.89 depression screening tool administer ed, entered into emr, scored and discussed, time greater than 7.5 minutes Bipolar disorder 0864791 4 F31.9 Overall seems to be doing well, tolerating meds moderately well, prescribed by DYE BOX OPERATOR prescriber , Julio Jarrett. He does not like the sedating effects of medication s. Has not had screening EKG recently with high dose of Quetiapine . QT is WNL Asthma 305048961 J45.90 9 Doing well overall without recent exacerbati on. He continues to use the ZUHAIR. I would suggest reducing his dose to to 1 inhalation twice a day. Obesity 532026457 E66.9 Active and really enjoying Archie. Schizoaffe ctive disorder 59787269 F25.9 Overall seems to be doing well, tolerating meds moderately well, prescribed by DYE BOX OPERATOR prescriber , Julio Jarrett. He does not like the sedating effects of medication s. Has not had screening EKG recently with high dose of Quetiapine . Inflammato ry spondylopathy 151809443 M46.[address] Burnett, takes indomethac in regularly as well as sulfasalaz ine. Lesion of tongue 7886804 05 K14.9 [id number] Nano Burnett MD Rheumatol og, [facility] [address] [facility] [place] [address] 09/19/2018 13:29:59 09/19/2018 14:03:12 Inflammatory spondylopathy 427231592 M46.90 B27 +. SSZ + Indocin for years. Tolerating fine. Occasional swelling at knees. Responded to injections in the past;R knee needs to be injected today. Still some synovitis at ankles. Can consider adding MTX, but I really think that issue is mostly DJD. Continue SSZ, continue indomethac in. RV with me 6 mo, sooner if needed. Knee joint effusion 2022 39297 M25.462 Previously , findings of inflammato ry fluid bilat.Symp tomatic L knee today. Fluid appeared sl cloudy at time of injeciton. [id number] Nano Burnett MD Rheumatol kaila, [address] [place] [address] 01/13/2019 13:28:18 01/14/2019 06:53:31 Inflammatory spondylopathy 756173942 M46.90 B27 +. SSZ + Indocin for years. Tolerating fine. Occasional swelling at knees. Responded to injections in the past;R knee needs to be injected today. Still some synovitis at ankles. Can consider adding MTX, but I really think that issue is mostly DJD. Continue SSZ, continue indomethac in. RV for spondyliti s 6 mo, sooner if needed.I will see him sooner for L knee. Knee joint effusion 2022 90712 M25.462 M25.461 Previously , findings of inflammato ry fluid bilat.Symp tomatic R knee today. Fluid appeared sl cloudy at time of injeciton. [id number] Nano Burnett MD Rheumatol daniel, [address] [place] [address] 02/13/2019 13:32:48 02/13/2019 15:08:29 Foot pain 55157712 M79.672 Advanced post inflammato ry DJD, but also symptomati c from calluses related to hammer toe deformity. Refer to Podiatry. Inflammato ry spondylopathy 466966014 M46.90 B27 +. SSZ + Indocin for years. Tolerating fine. Occasional swelling at knees. Responded to injections in the past;R knee needs to be injected today. Still some synovitis at ankles. Can consider adding MTX, but I really think that issue is mostly DJD. Continue SSZ, continue indomethac in. RV for spondyliti s 6 mo, sooner if needed.I will see him sooner for L knee if needed. Knee joint effusion 2022 66806 M25.462 Some swelling L knee today, sl warm.Not very symptomati c today and will hold off on local injection for now. History of cocaine abuse 0290608832 17683 F14.21 None for 3 years since living with uncle. Previously attended meetings, but not lately. [id number] Cabrera Landry, MSN, COMPUTING TUTOR-C , [facility], OFFICE [address] [facility] [address] 02/17/2019 15:41:33 02/17/2019 16:30:48 Active or passive immunization 502004011 Z23 Asthma 766530169 J45.90 9 Doing well overall without recent exacerbati on. He continues to use the ZUHAIR. I would suggest reducing his dose to to 1 inhalation twice a day. Schizoaffe ctive disorder 19843632 F25.9 Overall seems to be doing well, tolerating meds moderately well, prescribed by DYE BOX OPERATOR prescriber , Julio Jarrett. He does not like the sedating effects of medication s. Most recent EKG (08/2018)wa s within normal limits with a normal QTC. Bipolar disorder 9851971 4 F31.9 Overall seems to be doing well, tolerating meds moderately well, prescribed by DYE BOX OPERATOR prescriber , Julio Jarrett. He has had a reduction in dosage of both triflupera zine, seroquel and oxcarbazap ine. He does not like the sedating effects of medication s. Has not had screening EKG recently with high dose of Quetiapine . QT is WNL.[place] Neutrophilia 690084867 D 72.828 Noted on last CBC, with normal WBCs. Will recheck. 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 Burnett, takes indomethac in regularly as well as sulfasalaz ine. [id number] Martine Singh DPM Podiatry, [address] [place] [address] 03/04/2019 14:42:06 03/04/2019 15:54:05 Cigarette smoker 40348834 F17.210 Smoking cessation counsellin cheli done. Pt not interested in getting assistance with quitting at this time. Tobacco user 203496467 Z 72.0 Inflammato ry spondylopathy 454372933 M46.90 Foot callus 680555733 L8 4 Aseptic debridemen t of b/l foot calluses performed without incident. Encourage maintainin g calluses weekly by soaking feet and scrubbing with a pumice stone. Also encouraged to ice feet at end of day. Use compressio n socks to assist wtih reducing foot fatigue. Nsaids prn perhaps at end of day. Informed to take with meals. All questions have been answered. 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 Reviewed proper foot care. RTC 3 mths. [id number] Nano Burnett MD Rheumatol kaila, [address] [facility] [place] [address] 05/29/2019 12:32:04 06/01/2019 08:51:00 Inflammatory spondylopathy 139422938 M46.90 B27 +. SSZ + Indocin for years. Tolerating fine. Occasional swelling at knees. Responded to injections in the past;L knee needs to be injected today. Still possible synovitis at ankles. Can consider adding MTX, but I really think that issue is mostly DJD. Continue SSZ, continue indomethac in. RV for spondyliti s 3 mo, sooner if needed. Check labs at next visit. Effusion o f joint of left knee 6279206697 52092 M25.462 symptomati c. Inject today. Long-term drug therapy 643363734 Z79.899 detention SSZ. Reviewed recnt labs. On custodial Indocin. Has tried to reduce dose, but prompt flare in symptoms. Ganglion o f flexor tendon sheath of finger 595123287 M67.441 Probable gangion cysr flexor aspect R index PIP.Only sl bothersome at present.Re examine if sxs get worse. [id number] Martine Singh DPM Podiatry, [address] [place] [address] 06/03/2019 14:47:04 06/08/2019 08:23:24 Cigarette smoker 54706421 F17.210 Smoking cessation counsellin g done. Pt not interested in getting assistance with quitting at this time. Tobacco user 192606244 Z 72.0 Inflammato ry spondylopathy 537439248 M46.90 Foot callus 772182249 L8 4 Aseptic debridemen t of b/l foot calluses performed without incident. Encourage maintainin g calluses weekly by soaking feet and scrubbing with a pumice stone. Also encouraged to ice feet at end of day. Use compressio n socks to assist wtih reducing foot fatigue. Nsaids prn perhaps at end of day. Informed to take with meals. All questions have been answered. Foot pain 50998774 M79.6 71 M79.672 Orthotics agreement form was completed and signed today. Pt given a copy. We will check with her insurance about coverage. Patient is aware of cost. Onychogryphosis 93617647 L60.2 Manual and mechanical debridemen t of toenails to viable nail beds performed. Reviewed proper foot care. RTC 3 mths. Acquired h ammer toe of left foot 9259271400 144224 M20.42 Pt was previously consulted with an orthopedic surgeon. Pt with continued discomfort from his hammer toes and wanting to now reconsider surgical interventi on. New xrays have been ordered. Pt to follow up to review xray findings in 1 week. I spent 25 mins face to face with patient, more 50% spent in counseling and coordinati on of care. [id number] Nano Burnett MD Rheumatol kaila, [address] [place] [address] 06/05/2019 15:29:09 06/08/2019 08:15:33 Inflammatory spondylopathy 811231437 M46.90 B27 +. SSZ + Indocin for years. Tolerating fine. Occasional swelling at knees. Responded to injections in the past; Still possible synovitis at ankles. Can consider adding MTX, but I really think that issue is mostly DJD. Continue SSZ, continue indomethac in. RV for spondyliti s 3 mo, sooner if needed. Check labs at next visit. Effusion o f joint of left knee 6004838130 49279 M25.462 Pain in left knee 127003 4277 77786 M25.562 Just seen 1 week ago . Mildly inflammato ry effusion was aspirated and injected.H e did not have his usual full response.N O sign infection etc. I'm not sure why he did not respond as usual. Perhaps injection was not entirely intra-macy cular.Ther e could be significan t DJD, perhaps internal derangemen t . Too early to re-inject knee, but will give prednisone dose pack.Check x ray knee. If not improving, will want to re-evaluat e and/or refer to ortho. [id number] Betsey Maxwell Jr. MD , [facility], OFFICE [address] [facility] [place] [address] 06/17/2019 14:40:52 06/17/2019 15:37:38 Benign essential hypertension 4849989 I10 Blood pressure goal is < 130/80. Continue current dose of lisinopril . Schizoaffe ctive disorder 69759043 F25.9 As managed by psychiatri st and therapist. Taking oxcarbazep ine and quetiapine Nicotine dependence 5629 4008 F17.200 Encouraged patient to cut back and consider cessation. Discussed risks associated with prolonged nicotine exposure. Discussed possibilit y of medication options to assist in cessation. Reviewed cessation support options available through [facility]. Pankaj perez 3 minutes spent discussing strategies / reasons to quit. Change in voice 28823061 5 R49.9 Given smoking history, would benefit from evaluation by ENT to rule out polyps or vocal cord pathology. Could be side effect of symbicort Moderate p ersistent asthma 400483825 J45.40 Controlled with symbicort. [id number] Martine Singh DPM Podiatry, [address] [place] [address] 06/19/2019 16:01:05 06/24/2019 10:58:14 Inflammatory spondylopathy 945683366 M46.90 Foot callus 587700514 L8 4 Foot pain 09056780 M79.6 71 M79.672 Pt will have custom orthotics scanned after he has foot surgery. Acquired h ammer toe of left foot 4916300843 357286 M20.42 Pt was previously consulted with an orthopedic surgeon. Pt with continued discomfort from his hammer toes and wanting to now reconsider surgical interventi on. New xrays reviewed, severe hammer toe deformitie s digits 2-5; will need fusion of ipj of those toes. EDL lengthenin g. Pt with social limitation s living alone and takes public transporta tion. Unsure if he will have support as he does not get along with his step father. Pt has been urged to make solid arrangemen ts prior to potential surgery occuring. I spent 25 mins face to face with patient, more 50% spent in counseling and coordinati on of care. [id number] Nano Burnett MD Rheumatol ogkhadijah, [address] [place] [address] 09/01/2019 14:12:33 09/01/2019 15:39:05 Inflammatory spondylopathy 269120310 M46.90 B27 +. SSZ + Indocin for years. Tolerating fine. For the most part doing well but occasional swelling at knees. Responded to injections in the past; Still possible synovitis at ankles. Can consider adding MTX, but I really think that issue is mostly DJD. Continue SSZ, continue indomethac in. RV for spondyliti s 3 mo, sooner if needed. Check labs at next visit. Effusion o f joint of left knee 1519853746 49437 M25.462 Reluctant to come in because of COVID.In May, he seemed to respond well with prolonged benefit from prednisone dose pack.Will try that. Call if knee is bad enough that he has trouble getting around. Will need to bring him in for injection. [id number] Betsey Maxwell Jr. MD , [facility], OFFICE [address] [facility] [place] [address] 12/21/2019 14:45:13 12/21/2019 19:10:26 History of cocaine abuse 5787347930 80366 F14.21 Encouraged continue efforts at maintainin g sobriety. Adult [facility] th examination 778594558 Z00.00 Counseling 643196389 Z71 .9 including cardiovasc ular risk reduction counseling Depression screening 171 047588 Z13.89 depression screening tool administer ed, entered into emr, scored and discussed, time greater than 7.5 minutes Screening for alcohol abuse 961740566 Z13.39 Asthma 094864764 J45.90 9 Moderate persistent which remains well controlled with Symbicort. Benign ess ential hypertension 1128611 I10 Blood pressure goal is < 130/80. Continue current dose of lisinopril . Schizoaffe ctive disorder 52863136 F25.9 As managed by psychiatri st and therapist. Taking oxcarbazep ine and quetiapine Body mass index 30+ - obesity 855044640 Z68.37 Discussed importance of increased physical activity. Encouraged eating regularly/ not skipping meals. Discussed importance of pain attention to portion size and making healthier selections with fresh fruits and vegetables . Encouraged minimizing empty calories found in soft drinks and alcoholic beverages. Chronic al coholism in remission 908751191 F10.21 Reviewed associated health hazards with alcohol use and encouraged continued efforts at maintainin g sobriety. Inflammato ry spondylopathy 935081001 M46.90 As managed by rheumatnazia kim. B27 +. SSZ + Indocin for years. Tolerating fine. For the most part doing well but occasional swelling at knees. Responded to injections in the past; Still possible synovitis at ankles. Can consider adding MTX, but I really think that issue is mostly DJD. Continue SSZ, continue indomethac in. Nicotine dependence 5629 4008 F17.200 Encouraged patient to cut back and consider cessation. Discussed risks associated with prolonged nicotine exposure. Discussed possibilit y of medication options to assist in cessation. Reviewed cessation support options available through [facility]. Pankaj perez 3 minutes spent discussing strategies / reasons to quit. [id number] Nano Burnett MD Rheumatol ogkhadijah, [address] [place] [address] 12/04/2019 09:04:11 12/07/2019 11:09:59 Inflammatory spondylopathy 771509368 M46.90 B27 +. SSZ + Indocin for years. Tolerating fine. For the most part doing well but occasional swelling at knees. Responded to injections in the past; Still possible synovitis at ankles. Can consider adding MTX, but I really think that issue is mostly DJD. Continue SSZ, continue indomethac in. Now on omeprazole . Add folic acid (on SSZ). RV for spondyliti s 3 mo, sooner if needed. Has lab appt scheduled [id number] Martine Singh DPM Podiatry, [address] [address] 01/22/2020 14:01:24 01/25/2020 14:26:03 Inflammatory spondylopathy 586453370 M46.90 Foot callus 751771324 L8 4 aseptic debridemen t of b/l lesions to feet. To apply moisturiza tion to feet daily. RTC 3 months. Foot pain 61163048 M79.6 71 M79.672 Pt will have custom orthotics scanned after he has foot surgery. Acquired h ammer toe of left foot 5854772626 841411 M20.42 Pt was previously consulted with an orthopedic surgeon. Pt with continued discomfort from his hammer toes and wanting to now reconsider surgical interventi on. New xrays reviewed, severe hammer toe deformitie s digits 2-5; will need fusion of ipj of those toes. EDL lengthenin g. Pt with social limitation s living alone and takes public transporta tion. Unsure if he will have support as he does not get along with his step father. Pt has been urged to make solid arrangemen ts prior to potential surgery occuring. I spent 25 mins face to face with patient, more 50% spent in counseling and coordinati on of care. [id number] Nano Burnett MD Rheumatol kaila, [facility] [address] [facility] [address] 03/04/2020 10:44:41 03/07/2020 07:22:13 Inflammatory spondylopathy 212939031 M46.90 B27 +. SSZ + Indocin for years. Tolerating fine. For the most part doing well but occasional swelling at knees. Responded to injections in the past; Still possible synovitis at ankles. Can consider adding MTX, but I really think that issue is mostly DJD. Continue SSZ, continue indomethac in. Now on omeprazole . Coninue folic acid (on SSZ). RV for spondyliti s 3 mo, sooner if needed. Hoarse 65640845 R49.0 Seeing ENT.I don't see a [facility] ip to his spondyliti s. [id number] LEILANI De Jesus, [facility], OFFICE [address] [facility] [address] 03/17/2020 14:54:40 03/17/2020 18:39:18 Internal hemorrhoids 09107835 K64.8 Grade 3 internal hemorrhoid s per colonoscop y 09/13/2017. Followed by GI ([facility]). Will treat symptom with phenylephr ine suppositor ies, risks/bene fits/side effects reviewed. Discussed supportive measures, tucks pads, sitz baths, stool softeners as needed. May consider general surgery referral if symptoms remain uncontroll ed. F/u PRN. Painless r ectal bleeding 636590190 K62.5 C/o bright red blood in stool on and off for months. Likely re: hemorrhoid s - exacerbate d by intermitte nt constipati on. Isolated episode of dizziness. Fairly recent CBC reassuring , neg for anemia. Reviewed indication s for ED/UC visit. F/u PRN. Hard stool 98766638 R19. 5 K59.00 Intermitte nt constipati on, suggest trial of Miralax OTC, risks/bene fits/side effects reviewed. RX sent per his request. Push oral fluids and soft bland diet as tolerated. F/u PRN. [id number] Nano Burnett MD Rheumatol kaila, [address] [place] [address] 06/03/2020 10:21:15 06/06/2020 07:19:11 Inflammatory spondylopathy 073876561 M46.90 B27 +. SSZ + Indocin for years. Tolerating fine. For the most part doing well but occasional swelling at knees. Responded to injections in the past; not needed at present. Still possible synovitis at ankles. Can consider adding MTX, but I really think that issue is mostly DJD. Continue SSZ, continue indomethac in. Now on omeprazole . continue folic acid (on SSZ). RV for spondyliti s 4 mo (Dr Moore), sooner if needed. detention current use of non-steroidal anti-inflammatory drug 0275996897 77613 Z79.1 Discussed GI, CV risks. Current dose indomethac in quite effective, but sxs immediatel y recur if he misses dose. Continue with concurrent omeprazole . Last labs (12/09/19) reviewed; all OK. [id number] Betsey Maxwell Jr. MD , [facility], OFFICE [address] [facility] [place] [address] 06/15/2020 13:52:11 06/16/2020 07:22:26 Schizoaffective disorder 89295213 F25.9 As managed by psychiatri st and therapist. Taking oxcarbazep ine and quetiapine Asthma 761373441 J45.90 9 Moderate persistent which remains well controlled with Symbicort. Benign ess ential hypertension 4034713 I10 Blood pressure goal is < 130/80. Continue current dose of lisinopril . Inflammato ry spondylopathy 429860910 M46.90 As managed by rheumatolo julio. B27 +. SSZ + Indocin for years. Tolerating fine. For the most part doing well but occasional swelling at knees. Responded to injections in the past; Still possible synovitis at ankles. Can consider adding MTX, but I really think that issue is mostly DJD. Continue SSZ, continue indomethac in. Nicotine dependence 5629 4008 F17.200 Encouraged patient to cut back and consider cessation. Discussed risks associated with prolonged nicotine exposure. Discussed possibilit y of medication options to assist in cessation. Reviewed cessation support options available through [facility]. Pankaj perez 3 minutes spent discussing strategies / reasons to quit. Atypical chest pain 1025 62800 R07.89 Atypical in nature. Requested an office visit be scheduled to check an EKG and see if there are other causes like asthma which would explain these symptoms. Reviewed red flag symptoms and when to seek emergency care. [id number] Betsey Maxwell Jr. MD , [facility], OFFICE [address] [place] [address] 06/22/2020 10:55:28 06/22/2020 13:06:20 Palpitations 42712071 R00.2 Chest pain 55517048 R07. 9 Atypical in nature. EKG is reassuring . Symptoms appear to be related to anxiety / panic symptoms. Patient to discuss this further with mental health specialist s. Reviewed red flag symptoms and when to seek emergency care. Asthma 826368627 J45.90 9 Moderate persistent which remains well controlled with Symbicort. Normal exam today. Benign ess ential hypertension 2865021 I10 Blood pressure goal is < 130/80. Continue current dose of lisinopril . Bipolar disorder 0128834 4 F31.9 As managed by therapist and psychiatri st. Mood symptoms are stable with some increased amounts of anxiety [id number] Isabel Oconnor NP FP, [facility], OFFICE [address] [place] [address] 07/01/2020 15:59:18 07/01/2020 19:26:58 Hemorrhoids 59240716 K64.9 Hematochezia 750734763 K 92.1 Persistent . Constipation 09924729 K5 9.00 Gastroesop hageal reflux disease 537657813 K21.9 Takes PPI w/ good effect. [id number] Rachelle Moore MD Rheumatol kaila, [facility] [address] [facility] [place] [address] 09/12/2020 07:53:15 09/13/2020 06:38:32 Inflammatory spondylopathy 737799090 M46.90 States that he is doing well with SSZ with occasional pain and swelling in knees. Last episode was in 08/23 and he received oral steroids for it and it helped. Patient to continue SSZ and indocid and PPI. Check labs. Short course of prednisone . Reassess in 3 weeks to discuss any treatment change. long term current use of non-steroidal anti-inflammatory drug [id number] 80595 Z79.1 Check labs. Reassess treatment next visit. Continue with concurrent omeprazole . [id number] Rachelle Moore MD Rheumatol kaila, [facility] [address] [facility] [place] [address] 10/04/2020 15:03:27 10/04/2020 19:10:44 Inflammatory spondylopathy [id number] M46.90 States that he is doing well with SSZ with occasional pain and swelling in knees. Last episode was in 08/23 and he received oral steroids for it and it helped. Disease uncontroll ed with current regimen as patient is on high dose NSAIDs and SSZ and he is still needing steroids once a month. Decrease SSZ to 3 tablets bid. Continue Indocid, wean down later. Start Humira. Patient is getting his second shot of COVID vaccine tomorrow. Arrange for PCV-13 in 3 weeks. Check TB quantifero n this week. Arrange for Humira teaching once approved. Side effects of Humira discussed with the patient, including but not limited to: injection site reactions, increased incidence of usual infections , serious infections (like TB), malignanci es, allergic reaction, demyelinat ing disease, heart failure, lupus-like syndrome, cytopenias . Patient counselled to stop the medication if fever or any other sign of infection and call his PCP or our office right away. Patient instructed not to have any live vaccines. Patient verbalized understand ing. long term current use of non-steroidal anti-inflammatory drug [id number] 58357 Z79.1 Will try to wean down next visit after starting the Humira as SSZ was decreased to day. Continue with concurrent omeprazole . [id number] Betsey Maxwell Jr. 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 MD , [facility], OFFICE [address] [facility] [address] 12/20/2020 15:29:23 12/20/2020 16:13:30 Adult health examination 177019202 Z00.00 Counseling 711706276 Z71 .9 including cardiovasc ular risk reduction counseling Depression screening 171 957392 Z13.31 depression screening tool administer ed, entered into emr, scored and discussed, time greater than 7.5 minutes Asthma 077278932 J45.90 9 Moderate persistent which remains well controlled with Symbicort. Benign ess ential hypertension 4107643 I10 Blood pressure goal is < 130/80. Continue current dose of lisinopril . Nicotine dependence 5629 4008 F17.200 Encouraged patient to cut back and consider cessation. Discussed risks associated with prolonged nicotine exposure. Discussed possibilit y of medication options to assist in cessation. Reviewed cessation support options available through [facility]. Schizoaffe ctive disorder 40621782 F25.9 As managed by psychiatri st and therapist. Taking oxcarbazep ine and quetiapine Inflammato ry spondylopathy 566698705 M46.90 As managed by rheumatolo gy. B27 +. SSZ + Indocin for years. Tolerating fine. For the most part doing well but occasional swelling at knees. Responded to injections in the past; Still possible synovitis at ankles. Can consider adding MTX, but I really think that issue is mostly DJD. Continue SSZ, continue indomethac in. Chronic al coholism in remission 355205806 F10.21 Reviewed associated health hazards with alcohol use and encouraged continued efforts at maintainin g sobriety. Active or passive immunization 842570488 Z23 Due for Tdap in 02/2021, will update today. Body mass index 30+ - obesity 123028603 Z68.38 Discussed importance of increased physical activity. Encouraged eating regularly/ not skipping meals. Discussed importance of pain attention to portion size and making healthier selections with fresh fruits and vegetables . Encouraged minimizing empty calories found in soft drinks and alcoholic beverages. [id number] Rachelle Moore MD Rheumatol kaila, [address] [address] 01/04/2021 13:09:06 01/04/2021 19:09:36 Inflammatory spondylopathy 355567428 M46.90 Patient is doing better with Humira. Continue Humira. Decrease SSZ to 1 g in AM and continue 1.5 g at night. Decrease indocid to 50 mg bid for one month then 50 mg at night.COVI D booster discussed. Patient got PCV-13. Check labs for disease activity and medication toxicity (standing order). RTC in 14 weeks. detention current use of non-steroidal anti-inflammatory drug [id number] 40036 Z79.1 Trying to wean down slowly as above. Long-term drug therapy 872228214 Z79.899 On Humira and SSZ. Monitor labs.Patie nt to hold Humira and SSZ if fever or any signs of infection. [id number] Rachelle Moore MD Rheumatol kaila, [address] [address] 04/12/2021 13:04:56 04/19/2021 19:00:22 Inflammatory spondylopathy 562628303 M46.90 Patient is doing better with Humira. Continue Humira. Decrease SSZ to 1 g bid. Continue Indocid 50 mg at night.COVI D booster discussed. Patient to get the flu shot. Check labs for disease activity and medication toxicity (standing order). RTC in 4 months or sooner if needed. long term current use of non-steroidal anti-inflammatory drug 2921427978 35131 Z79.1 Trying to wean down slowly as above. Long-term drug therapy 239906936 Z79.899 On Humira and SSZ. Monitor labs.Patie nt to hold Humira and SSZ if fever or any signs of infection. [id number] Betsey Maxwell Jr. MD LCAY, [facility], OFFICE [address] [place] [address] 06/21/2021 14:33:31 06/21/2021 15:45:23 Asthma 538337035 J45.909 Moderate persistent which remains well controlled with Symbicort. Benign ess ential hypertension 4429445 I10 Blood pressure goal is < 130/80. Continue current dose of lisinopril . Inflammato ry spondylopathy 502065683 M46.90 As managed by rheumatolo gy. B27 +. SSZ + Indocin for years. Tolerating fine. For the most part doing well but occasional swelling at knees. Responded to injections in the past; Still possible synovitis at ankles. Can consider adding MTX, but I really think that issue is mostly DJD. Continue SSZ, continue indomethac in. Chronic al coholism in remission 465892608 F10.21 Reviewed associated health hazards with alcohol use and encouraged continued efforts at maintainin g sobriety. Bipolar disorder 4676156 4 F31.9 As managed by therapist and psychiatri st. Mood symptoms are stable. Taking oxcarbazep ine and quetiapine [id number] Rachelle Moore MD Rheumatol kaila, [facility] [address] [place] [address] 08/29/2021 13:29:12 08/31/2021 19:26:16 Inflammatory spondylopathy 573815897 M46.90 Patient notices that was doing better with Humira and the higher dose of SSZ. Continue Humira. Reincrease SSZ to 1 g in AM and 1.5 g in PM. Continue Indocid 50 mg at night.Yareli ent got the COVID series. 4th COVID booster discussed. Patient to get Shingrix vaccine. Check labs for disease activity and medication toxicity (standing order). RTC in 4 months or sooner if needed. long term current use of non-steroidal anti-inflammatory drug 0833902205 81857 Z79.1 Trying to wean down slowly as above. Long-term drug therapy 740589049 Z79.899 On Humira and SSZ. Monitor labs.Patie nt to hold Humira and SSZ if fever or any signs of infection. [id number] CLEMENTE Alfred , [facility], OFFICE [address] [facility] [place] [address] 10/10/2021 15:23:25 10/10/2021 15:56:16 COVID-19 678023260 U07.1 Given high risk comorbidit ies and multitude of medication s which interact with Paxlovid, pt is better suited for treatment with monoclonal antibodies . Will ask triage to arrange [id number] Rachelle Moore MD Rheumatol kaila, [facility] [address] [facility] [place] [address] 01/17/2022 14:56:32 02/02/2022 10:24:36 Inflammatory spondylopathy 830309763 M46.90 Still getting pain in his joints.Con tinue Humira. Reincrease SSZ to 1.5 g in AM and 1.5 g in PM. Continue Indocid 50 mg at night.COVI D booster discussed. Patient to get the flu shot.Patie nt needs to get Shingrix vaccine. Check labs for disease activity and medication toxicity before next visit. RTC in 4 months or sooner if needed. Long-term drug therapy 862918845 Z79.899 On Humira and SSZ and indocid. Monitor labs.Patie nt to hold Humira and SSZ if fever or any signs of infection. Cocaine abuse 56828534 F 14.10 Recent relapse. Following with a therapist. Counselled patient to call office or his PCP if he needs help. Iron defic iency anemia 51491847 D50.9 Start iron OTC.Patishania t to follow with his pcp on this. [id number] Jr. MD BAMBI Stacy, [facility], OFFICE [address] [facility] [place] [address] 12/25/2021 13:55:24 12/25/2021 16:17:28 Adult health examination 266518193 Z00.00 Depression screening 171 006715 Z13.31 Depression screening tool administer ed, entered into emr, scored and discussed, time greater than 7.5 minutes Screening for alcohol abuse 130431864 Z13.39 Counseling 947268682 Z71 .89 Including cardiovasc ular risk reduction counseling Asthma 387141051 J45.90 9 Stable. Moderate persistent which remains well controlled with Dulera. Benign ess ential hypertension 3266183 I10 Blood pressure goal is < 130/80. Continue current dose of lisinopril . Inflammato ry spondylopathy 142297156 M46.90 As managed by rheumatolo gy. B27 +. SSZ + Indocin for years. Tolerating fine. For the most part doing well but occasional swelling at knees. Responded to injections in the past; Still possible synovitis at ankles. Can consider adding MTX, but I really think that issue is mostly DJD. Continue SSZ, Humira, continue indomethac in. Chronic al coholism in remission 875141718 F10.21 Reviewed associated health hazards with alcohol use and encouraged continued efforts at maintainin g sobriety. Bipolar disorder 6144467 4 F31.9 Stable. As managed by therapist and psychiatri st. Mood symptoms are stable. Taking oxcarbazep ine and quetiapine Schizoaffe ctive disorder 98524065 F25.9 Stable. As managed by psychiatri st and therapist. Taking oxcarbazep ine and quetiapine Constipation 60478578 K5 9.00 Stable. Secondary to medication side effects. Managed by Miralax. Cocaine abuse 34356752 F 14.10 Recent slip. Has recommitte d to cessation / sobriety. Has support people in place including mother and therapist. Nicotine d ependence with current use 828194279 F17.200 Encouraged patient to cut back and consider cessation. Discussed risks associated with prolonged tobacco exposure. Discussed possibilit y of medication options to assist in cessation. Reviewed cessation support options available through [facility]. [id number] Betsey Maxwell Jr. FP, [facility], OFFICE [address] [facility] [place] [address] 08/01/2022 13:59:36 08/01/2022 14:21:35 Asthma 486924599 J45.909 Stable. Moderate persistent which remains well controlled with Dulera. Benign ess ential hypertension 0012044 I10 Blood pressure goal is < 130/80. Continue current dose of lisinopril . Inflammato ry spondylopathy 840435929 M46.90 As managed by rheumatolo gy. B27 +. SSZ + Indocin for years. Tolerating fine. For the most part doing well but occasional swelling at knees. Responded to injections in the past; Still possible synovitis at ankles. Can consider adding MTX, but I really think that issue is mostly DJD. Continue SSZ, Humira, continue indomethac in. Chronic al coholism in remission 288362220 F10.21 Reviewed associated health hazards with alcohol use and encouraged continued efforts at maintainin g sobriety. Bipolar disorder 3907099 4 F31.9 Stable. As managed by therapist and psychiatri st. Mood symptoms are stable. Taking oxcarbazep ine and quetiapine Schizoaffe ctive disorder 55843410 F25.9 Stable. As managed by psychiatri st and therapist. Taking oxcarbazep ine and quetiapine Cocaine abuse 56321192 F 14.10 Recent slip. Has recommitte d to cessation / sobriety. Has support people in place including mother and therapist. Nicotine d ependence with current use 746532295 F17.200 Encouraged patient to cut back and consider cessation. Discussed risks associated with prolonged tobacco exposure. Discussed possibilit y of medication options to assist in cessation. Reviewed cessation support options available through [facility]. Iron defic iency anemia 73047398 D50.9 [facility] risk of sexually transmitted infection 880486383 Z20.2 [id number] Betsey Maxwell Jr. , [facility], OFFICE [address] [facility] [place] [place] [address] 01/22/2023 13:48:55 01/22/2023 17:49:39 Adult health examination 337093509 Z00.00 Depression screening 171 166179 Z13.31 depression screening tool administer ed Screening for alcohol abuse 793458180 Z13.39 Alcohol use screening tool administer ed Benign ess ential hypertension 9204184 I10 Blood pressure goal is < 130/80. Continue current dose of lisinopril . Bipolar disorder 2717263 4 F31.9 Stable. As managed by therapist and psychiatri st. Mood symptoms are stable. Taking oxcarbazep ine and quetiapine Schizoaffe ctive disorder 79194132 F25.9 Stable. As managed by psychiatri st and therapist. Taking oxcarbazep ine and quetiapine Asthma 048166402 J45.90 9 Stable. Moderate persistent which remains well controlled with Dulera. Inflammato ry spondylopathy 093818046 M46.90 As managed by rheumatnazia kim. B27 +. SSZ + Indocin for years. Tolerating fine. For the most part doing well but occasional swelling at knees. Responded to injections in the past; Still possible synovitis at ankles. Can consider adding MTX, but I really think that issue is mostly DJD. Continue SSZ, Humira, continue indomethac in. Chronic al coholism in remission 104418099 F10.21 Reviewed associated health hazards with alcohol use and encouraged continued efforts at maintainin g sobriety. Cocaine abuse 48679534 F 14.10 Encouraged continued efforts at cessation / sobriety. Has support people in place including mother and therapist. Nicotine d ependence with current use 432811964 F17.200 Encouraged patient to cut back and consider cessation. Discussed risks associated with prolonged tobacco exposure. Discussed possibilit y of medication options to assist in cessation. Reviewed cessation support options available through [facility]. Iron defic iency anemia 45732879 D50.9 Counseled by member of primary health care team 187111804 Z71.9 Today we discussed ways to reduce your 10-year cardiovasc ular disease risk. Things that decrease risk for cardiovasc ular events include eating a diet high in fiber (fruits and vegetables ) and low in simple carbohydra ada (bread, rice, pasta, alcohol, potatoes), decreasing processed foods, limiting juice and alcohol, limiting saturated fats (butter, ice cream, and cheeses), and adding regular daily activity. Having blood pressure that is <130/80. Having well controlled cholestero l (LDL and triglyceri janett) by eating a healthy diet and taking medication s when necessary. Managing daily stress with meditation or yoga. Depending on your other cardiovasc ular risks your practition er may recommend taking daily aspirin. [id number] Betsey Maxwell Jr. FP, [facility], OFFICE [address] [facility] [place] [address] 08/01/2023 14:54:15 08/01/2023 15:57:57 Foot pain 50780644 M79.602 Will arrange for referral to podiatry for on going care. Benign ess ential hypertension 0016368 I10 Controlled . Blood pressure goal is < 130/80. Continue current dose of lisinopril . Bipolar disorder 1185172 4 F31.9 Stable. As managed by therapist and psychiatri st. Mood symptoms are stable. Taking oxcarbazep ine and trifluoper azine. Schizoaffe ctive disorder 12822141 F25.9 Stable. As managed by psychiatri st and therapist. Taking oxcarbazep ine and trifluoper azine. Asthma 716449183 J45.90 9 Stable. Moderate persistent which remains well controlled with Dulera. Inflammato ry spondylopathy 821783785 M46.90 As managed by rheumatolo gy. B27 +. SSZ + Indocin for years. Tolerating fine. For the most part doing well but occasional swelling at knees. Responded to injections in the past; Still possible synovitis at ankles. Can consider adding MTX, but I really think that issue is mostly DJD. Continue SSZ, Humira, continue indomethac in. Cocaine abuse 41519043 F 14.10 Encouraged continued efforts at cessation / sobriety. Has support people in place including mother and therapist. Constipation 35312617 K5 9.00 Stable. Secondary to medication side effects. Managed by Miralax. Discussed option of linaclotid e if needed in the future [id number] Betsey Maxwell Jr. , [facility], OFFICE [address] [facility] [place] [address] 01/27/2024 14:37:29 01/27/2024 16:13:59 Adult health examination 798655698 Z00.00 Discussed shingles vaccine. Benign ess ential hypertension 6508041 I10 Blood pressure goal is < 130/80. Continue current dose of lisinopril . Bipolar disorder 0265616 4 F31.9 Stable. As managed by therapist and psychiatri st. Mood symptoms are stable. Taking oxcarbazep ine and quetiapine Schizoaffe ctive disorder 08349102 F25.9 Stable. As managed by psychiatri st and therapist. Taking oxcarbazep ine and quetiapine Asthma 812664459 J45.90 9 Stable. Moderate persistent which remains well controlled with Dulera. Inflammato ry spondylopathy 794889247 M46.90 As managed by rheumatolo gy. B27 +. SSZ + Indocin for years. Tolerating fine. For the most part doing well but occasional swelling at knees. Responded to injections in the past; Continue SSZ, Humira, continue indomethac in. Chronic al coholism in remission 251300967 F10.21 Reviewed associated health hazards with alcohol use and encouraged continued efforts at maintainin g sobriety. Cocaine abuse 07575134 F 14.10 Encouraged continued efforts at cessation / sobriety. Has support people in place including mother and therapist. Nicotine d ependence with current use 834863210 F17.200 Encouraged patient to cut back and consider cessation. Discussed risks associated with prolonged tobacco exposure. Discussed possibilit y of medication options to assist in cessation. Reviewed cessation support options available through [facility]. Screening for alcohol abuse 903009003 Z13.39 Alcohol use screening tool administer ed Depression screening 171 981766 Z13.31 depression screening tool administer ed Chest pain 04234206 R07. 9 Atypical in nature. EKG is reassuring . Symptoms appear to be related to anxiety / panic symptoms. Patient to discuss this further with mental health specialist s. Reviewed red flag symptoms and when to seek emergency care. [id number] YIN LU NP FP, [facility], OFFICE [address] [facility] [place] [address] 06/01/2024 16:12:31 06/02/2024 11:22:37 Lightheadedness 843653520 R42 Unclear cause of dizziness and weakness. Patient believes it may be related to stopping indomethac in suddenly after taking it twice daily for 20 years. I discussed this is possible but also discussed other causes, such as dehydratio n or GI illness such as norovirus. I stressed that he should seek emergency care immediatel y if he develops chest pain/press ure, vision changes, or numbness in one side of the body. Cautioned to be careful due to the risk of increased falls. EKG showed normal sinus rhythm, unchanged from previous. Vital signs are normal today. - Resume indomethac in once daily for 7 days, then stop and reassess. - Provided written instructio ns on managing dizziness and when to seek emergency care. - Pt does not drive - Instructed to call clinic if symptoms worsen or persist. Nicotine dependence 5629 4008 F17.200 Using nicotine lozenges for cessation. - Continue nicotine lozenges as needed. Ankylosing spondylitis 5426262 M45.9 Followed by rheum, on Humira. Patient recently discontinu ed indomethac in, is concerned about side effects of stopping abruptly, I recommende d continuing once daily for 7 days and then stopping. Health Concerns Section Related Observation LastModified by Organization Detai ls LastModified Time None Recorded Concern Status LastModified by Organization Details LastModified Time None Recorded Advance Directives Directive None Recorded Payers Encounter Date Sequence Insurance Name Policy Number Policy [place] Covered Member ID Nielson Member ID Guarantor Name 08/01/2022 1 [employer] - DOS PRIOR TO 2022 - DUAL ELIGIBLE (MEDICARE REPLACEMENT/AD VANTAGE - HMO) Alec Goncalves [id number] Alec Goncalves 01/22/2023 1 [employer] - DOS ON OR AFTER 2022 - ONE CARE (MEDICARE REPLACEMENT/AD VANTAGE - HMO) Alec Goncalves [id number] Alec Goncalves 08/01/2023 1 [employer] - DOS ON OR AFTER 2022 - ONE CARE (MEDICARE REPLACEMENT/AD VANTAGE - HMO) Alec Goncalves [id number] lAec Goncalves 01/27/2024 1 [employer] - DOS ON OR AFTER 2022 - ONE CARE (MEDICARE REPLACEMENT/AD VANTAGE - HMO) Alec Goncalves [id number] Alec Goncalves 06/01/2024 1 [employer] - DOS ON OR AFTER 2022 - ONE CARE (MEDICARE REPLACEMENT/AD VANTAGE - HMO) Alec Goncalves [id number] Alec Goncalves Notes Date Note Type Note Provider Name and Address Organization Details Recorded Time 3 text/html Pt presents in the office for medical management. Has several chronic medical conditions:1) Schizoaffective/bipolar disorder ? Meets with therapist and prescriber regularly at [facility] he overall feels like he is stable on the combination of oxcarbazepine, quetiapine, trifluoperazine. No recent exacerbations of history of paranoid schizoaffective disorder, sees therapist regularly.2) Asthma ? currently prescribed Dulera inhaler. He takes this with good adherence, with sparing use of the short acting beta agonist.3) Nicotine dependence ? listed as an ex-smoker continues to use nicotine lozenges4) Alcohol dependence/cocaine dependence ? has maintained sobriety for about 6 years from alcohol. Reports slip with cocaine within the last month. None since that time.5) Inflammatory spondyloarthropathy ? taking sulfasalazine, humira, and indomethacin regularly. Denies side effects. Has been able to establish with new waiter/waitress dining car. Reports joint symptoms are stable.6) Hypertension - Taking lisinopril regularly. Denies side effects. Denies chest pain, worsening exertional dyspnea, focal weakness or paresthesias. Blood pressure goal is <130/80.7) Request for STI testing. Reports new partner. Used condom. Denies dysuria or discharge. Would like to be tested. Betsey Maxwell Jr. [address] [place] [address], [phone], [facility] 08/04/2022 13:23:53 3 text/html Risk Assessment and Lifestyle Change Counseling 65+ (Medicare)Reported bypatient.Coronary Artery Disease Risk Assessment:Family History of Coronary Artery Disease(Father); No personal history of diabetes; No history of peripheral vascular disease, AAA, or carotid disease; No personal history of coronary artery disease; [place] 10 year risk Breast Cancer Risk Assessment:No family history of breast cancer; No history of breast cancer or dcis Colon Cancer Risk Assessment:No family history of pre cancerous colon polyps or cancer Lung Cancer Risk Assessment:Has used cigarettes less than 30 pack years;Former smoker quit within last 15 years; No asbestos exposure; has been using nicotine gum since April Fracture Risk Assessment:No unexplained fracture; No use of corticosteroids; No anti-seizure medication; Normal bone density; Has adequate calcium intake;Not taking Vitamin D; No chronic use of proton pump inhibitors Cognitive/Behavioral Risk Assessment:Personal history of mental illness(Bipolar, schizoaffective d/o);Family history of mental illness(Father, brother) Safety Risk Assessment:No grab bars in bathroom; Has rails on steps; No falls; No evidence of abuse/neglect Functional Status:Patient does not have trouble hearing the television or radio when others do not.; Patient does not have to strain or struggle to hear/understand conversations; Patient does not need help with preparing meals, transportation, shopping, taking medicine, managing finances, or other activities of daily living.; Patient does not have visual loss that interferes with daily activities;Lives alone; Patient was not unsteady and did not take longer than 30 seconds during the timed get up and go test.; Patient reports no falls in the past 6 months. Diet:Counseled about eating a diet low in trans and saturated fats and high in fiber, fruits and vegetables; Counseled about decreasing carbohydrates; Discussed the value of a Mediterranean diet , and eating more fruits and vegetables Exercise counseling:Discussed the importance of daily physical activity; Discussed the importance of weight bearing exercise Safety:Counseled about avoiding excessive and unsafe alcohol intake Pt presents in the office for wellness visit . Has several chronic medical conditions:1) Schizoaffective/bipolar disorder ? Meets with therapist and prescriber regularly at [facility] he overall feels like he is stable on the combination of oxcarbazepine, quetiapine, trifluoperazine. No recent exacerbations of history of paranoid schizoaffective disorder, sees therapist regularly.2) Asthma ? currently prescribed Dulera inhaler. He takes this with good adherence, with sparing use of the short acting beta agonist.3) Nicotine dependence ? listed as an ex-smoker continues to use nicotine lozenges4) Alcohol dependence/cocaine dependence ? has maintained sobriety for about 6 years from alcohol. Reports rare slip with cocaine.5) Inflammatory spondyloarthropathy ? taking sulfasalazine, humira, and indomethacin regularly. Denies side effects. Has been able to establish with new waiter/waitress dining car. Reports joint symptoms are stable.6) Hypertension - Taking lisinopril regularly. Denies side effects. Denies chest pain, worsening exertional dyspnea, focal weakness or paresthesias. Blood pressure goal is <130/80. Betsey Maxwell Jr. MD [address] [place] [address], [phone], [facility] 01/29/2023 06:33:47 4 text/html Pt presents in the office for wellness visit . Has several chronic medical conditions:1) Schizoaffective/bipolar disorder ? Meets with therapist and prescriber regularly at [facility]., he overall feels like he is stable on the combination of oxcarbazepine, quetiapine, trifluoperazine. No recent exacerbations of history of paranoid schizoaffective disorder, sees therapist regularly.2) Asthma ? currently prescribed Dulera inhaler. He takes this with good adherence, with sparing use of the short acting beta agonist.3) Nicotine dependence ? listed as an ex-smoker continues to use nicotine lozenges4) Alcohol dependence/cocaine dependence ? has maintained sobriety for about 6 years from alcohol. and 4 months with cocaine. Attending meetings regularly.5) Inflammatory spondyloarthropathy ? taking sulfasalazine, humira, and indomethacin regularly. Denies side effects. Has been able to establish with new waiter/waitress dining car. Reports joint symptoms are stable.6) Hypertension - Taking lisinopril regularly. Denies side effects. Denies chest pain, worsening exertional dyspnea, focal weakness or paresthesias. Blood pressure goal is <130/80.7) constipation ? reports improvement with MiraLAX. When taking twice a day it presents a problem/inconvenience. Recently reduced to once a day dosing. Betsey Maxwell Jr. [address] [place] [address], [phone], [facility] 08/02/2023 16:19:14 4 text/html Risk Assessment and Lifestyle Change Counseling (Medicare)Reported bypatient.Coronary Artery Disease Risk Assessment:Family History of Coronary Artery Disease(Father); No personal history of diabetes; No history of peripheral vascular disease, AAA, or carotid disease; No personal history of coronary artery disease; [place] 10 year risk Breast Cancer Risk Assessment:No family history of breast cancer; No history of breast cancer or dcis Colon Cancer Risk Assessment:No family history of pre cancerous colon polyps or cancer Lung Cancer Risk Assessment:Has used cigarettes less than 30 pack years;Former smoker quit within last 15 years; No asbestos exposure; has been using nicotine gum since April Fracture Risk Assessment:No unexplained fracture; balance is normal; No use of corticosteroids; No anti-seizure medication; Normal bone density; Has adequate calcium intake;Not taking Vitamin D; No chronic use of proton pump inhibitors Cognitive/Behavioral Risk Assessment:Personal history of mental illness(Bipolar, schizoaffective d/o);Family history of mental illness(Father, brother) Safety Risk Assessment:No grab bars in bathroom; Has rails on steps; No falls; No evidence of abuse/neglect Functional Status:Patient does not have trouble hearing the television or radio when others do not.; Patient does not have to strain or struggle to hear/understand conversations; Patient does not need help with preparing meals, transportation, shopping, taking medicine, managing finances, or other activities of daily living.; Patient does not have visual loss that interferes with daily activities;Lives alone; Patient was not unsteady and did not take longer than 30 seconds during the timed get up and go test.; Patient reports no falls in the past 6 months. Diet:Counseled about eating a diet low in trans and saturated fats and high in fiber, fruits and vegetables; Counseled about decreasing carbohydrates; Discussed the value of a Mediterranean diet , and eating more fruits and vegetables Exercise counseling:Discussed the importance of daily physical activity; Discussed the importance of weight bearing exercise Safety:Counseled about avoiding excessive and unsafe alcohol intake Pt presents in the office for wellness visit . Has several chronic medical conditions:1) Schizoaffective/bipolar disorder ? Meets with therapist and prescriber regularly at [facility]., he overall feels like he is stable on the combination of oxcarbazepine, quetiapine, trifluoperazine. No recent exacerbations of history of paranoid schizoaffective disorder, sees therapist regularly.2) Asthma ? currently prescribed Dulera inhaler. He takes this with good adherence, with sparing use of the short acting beta agonist.3) Nicotine dependence ? listed as an ex-smoker continues to use nicotine lozenges4) Alcohol dependence/cocaine dependence ? has maintained sobriety for about 6 years from alcohol. Reports rare slip with cocaine.5) Inflammatory spondyloarthropathy ? taking sulfasalazine, humira, and indomethacin regularly. Denies side effects. Has been able to establish with new waiter/waitress dining car. Reports joint symptoms are stable. Would like to be referred to prescribe the Y program.6) Hypertension - Taking lisinopril regularly. Denies side effects. Denies chest pain, worsening exertional dyspnea, focal weakness or paresthesias. Blood pressure goal is <130/80.7) Chest pain - not related to activity or exertion. Would like to have EKG. Betsey Maxwell Jr. [address] [place] [address], [phone], [facility] 01/30/2024 05:04:26 5 text/html History of Present Illness The patient presents with dizziness and weakness. He has been experiencing dizziness and weakness since last night, characterized by lightheadedness, difficulty balancing, and weakness in both arms, with numbness in the right arm. He feels dehydrated despite regular fluid intake. No chest pain or trouble breathing is reported, but he has a headache that improved with medication. He has been on indomethacin for ankylosing spondylitis twice daily for 20 years, but his insurance no longer covers it. He stopped indomethacin and suspects this may be related to his symptoms. He has had diarrhea twice today and possibly yesterday, which is more frequent than usual. He also experienced nausea earlier in the day. He attends recovery meetings and is aware of circulating illnesses like a stomach virus and COVID-19. He is concerned about bartolo something at a meeting attended on Saturday and has mostly stayed home since, except for the current appointment. YIN LU NP [address] [place] [address], [phone], [facility] 06/02/2024 11:17:25
--- OUTSIDE RECORDS SUMMARY | 2024-07-30 17:02 | XMS_ITS | Clinical Summary ---
Author Organization [employer] Address [address] [place] [address] 7 [place] [address] Care Team Providers Care Frickertron Checker Name Role Phone Roberto Carlos Montes DDAndrea Primary Care Provider Allergies Active Allergy Reactions Criticality Noted Date Comments Cat Dander 05/01/2022 Dust Mite Extract 05/01/2022 Gramineae Pollens 05/01/2022 Pollen Extract 05/01/2022 Medications Humira Pen 40 MG/0.4ML Pen-injector Kit pen-injector INJECT 0.4 ML UNDER THE SKIN EVERY 2 WEEKS 2 Active folic acid (Folvite) 1 MG tablet Take 1,000 mcg by mouth in the morning. 2 Active ketorolac (Acular) 0.5 % ophthalmic solution INSTILL 1 DROP TO SURGICAL EYE THREE TIMES DAILY DIRECTED 2 Active latanoprost (Xalatan) 0.005 % ophthalmic solution INSTILL 1 DROP IN BOTH EYES AT BEDTIME 2 Active lisinopril 10 MG tablet Take 10 mg by mouth in the morning. 2 Active omeprazole (PriLOSEC) [address] capsule 2 Active polyethylene glycol, PEG, 3350 (Glycolax) 17 GM/SCOOP powder MIX 17 GRAMS OF POWDER IN LIQUID AND DRINK BY MOUTH TWICE DAILY 2 Active QUEtiapine (SEROquel) 400 MG tablet TAKE 1 TABLET BY MOUTH AT BEDTIME. DISCONTINUE PREVIOUS SCRIPT 2 Active sulfaSALAzine (Azulfidine) 500 MG tablet TAKE 4 TABLETS BY MOUTH TWICE DAILY 2 Active trifluoperazine (Stelazine) 5 MG tablet 2 Active indomethacin (Indocin) 50 MG capsule Take 50 mg by mouth with breakfast and with evening meal. 1 tab @ night Active Dulera 100-5 MCG/ACT inhaler 2 Active Active Problems Problem Noted Date Diagnosed Date Knee pain 10/15/2023 Bipolar disorder with severe depression 04/12/20 17 Arthritis 04/11/2017 Asthma 04/11/2017 Bipolar 1 disorder 04/11/2017 Glaucoma 04/11/2017 Social History Tobacco Use Types Packs/Day Years Used Date Smoking Tobacco: Former Cigarettes Q uit: 04/11/2017 Smokeless Tobacco: Never Tobacco Cessation:Counseling Given: Not Answered Comments:Currently using nicotine lozenges Alcohol Use Standard Drinks/Week Comments Not Currently 0 (1 standard drink = 0.6 oz pur e alcohol) Sex and Gender Information Value Date Recorded Sex Assigned at Male 10/15/2023 8:24 AM EDT Legal Sex Male 8:39 PM EST Gender Identity Male 03/16/2022 8:39 PM EST Sexual Orientation Choose not to disclose 2021 8:39 PM EST Last Filed Vital Signs Vital Sign Reading Time Taken Comments Blood Pressure 123/88 10/21/2023 1:35 PM EDT Pulse 85 10/21/2023 1:35 PM EDT Temperature 36.6 ??C (97.9 ??F) 10/21/2023 1:35 PM ED T Respiratory Rate - - Oxygen Saturation - - Inhaled Oxygen Concentration - - Weight - - Height - - Body Mass Index - - Plan of Treatment Health Maintenance Due Date Last Done Comments CT Colonography 1973 Colonoscopy 1973 Colorectal Cancer Screening 1973 Depression Screening 1973 FIT DNA/Cologuard 1973 FIT 1973 FOBT 1973 HIV Screening 1973 Lipid Panel 1973 SDOH Screening 1973 Sigmoidoscopy 1973 Alcohol/Substance Use Screening 1985 Family Planning (PISQ) 1988 Hepatitis C Screening 10/08/1991 Hepatitis B Vaccines (1 of 3 - 19+ 3-dose series) 1992 Dental Prophylaxis 06/30/2022 12/27/2021, 09/26/2020 Dental Oral Exam 07/17/2022 01/16/2022, , 02/27/2019 Dental X-Ray: Bitewings 12/28/2022 12/28/19 22, 09/26/2020, 02/27/2019 Zoster Vaccines (1 of 2) 10/08/2023 COVID-19 Vaccine ( season) 2024 06/17/2023, 04/11/2022, 12/03/2021, Additional history exists Influenza Vaccine (#1) 2024 , 04/11/2022, 05/02/2021, Additional history exists Dental X-Ray: Full Mouth 05/12/2024 05/11/2021, 02/04 Tobacco Screening 10/14/2024 10/15/2023 Pneumococcal Vaccine: 50+ Years (3 of 3 - PCV20 or PCV21) 10/31/2025 10/31/2020, 06/12/2016 DTaP/Tdap/Td Vaccines (2 - Td or Tdap) 12/20/2030 12/20/2020, 02/20/2011, 08/11/1999 Pneumococcal Vaccine: Pediatrics (0 to 5 Years) and At-Risk Patients (6 to 49) Years) (3 of 3 - PPSV23 or PCV20) 2038 10/31/2020, 06/12/2016 RSV Patients and Patients Aged 60 years or older (1 - 1-dose 75+ series) 2048 HIB Vaccines Aged Out No longer eligi ble based on patient's age to complete this topic HPV Vaccines Aged Out No longer eligi ble based on patient's age to complete this topic Hepatitis A Vaccines Aged Out No long er eligible based on patient's age to complete this topic IPV Vaccines Aged Out No longer eligi ble based on patient's age to complete this topic Meningococcal Vaccine Aged Out No idalia sandrita eligible based on patient's age to complete this topic RSV under 20 months Aged Out No longe r eligible based on patient's age to complete this topic Rotavirus Vaccines Aged Out No longer eligible based on patient's age to complete this topic Procedures Procedure Name Priority Date/Time Associated Diagnosis Comments PERIODIC ORAL EVALUATION - ESTABLISHED PATIENT Routine 01/16/2022 12:00 AM EDT PROPHYLAXIS - ADULT Routine 12/27/2021 1 2:00 AM EDT BITEWINGS - 4 RADIOGRAPHIC IMAGES Routine 12/27/2021 12:00 AM EDT PANORAMIC RADIOGRAPHIC IMAGE Routine 05/11/2021 12:00 AM EST from Last 3 Months or Most Recently Relevant to Health Maintenance Insurance - [facility] Care Teams Frickertron Checker Relationship Specialty Start Date End Date Roberto Carlos Montes DDS [address] Count Includes [facility] [place] [address] PCP - General Dentist 03/02/22
== END 2024-07-30 14:19 | disposition home or self-care (01) ==
LOC: HO.RHE 13:39
PROVIDERS: PCP Family Medicine; Visit Provider Student in an Organized Health Care Education/Training Program
DX: M45.0 Ankylosing spondylitis of multiple sites in spine (principal); M17.0 Bilateral primary osteoarthritis of knee; Z51.81 Encounter for therapeutic drug level monitoring; Z79.620 Long term (current) use of immunosuppressive biologic; Z79.899 Other long term (current) drug therapy; Z79.1 Long term (current) use of non-steroidal anti-inflammatories (NSAID)
CPT/HCPCS: 99214; G2211

== ENCOUNTER → 2024-07-30 13:39 | Outpatient (BNVA) | payer OTHER, SELFPAY | PROVIDERS: PCP Family Medicine; Visit Provider Student in an Organized Health Care Education/Training Program | DX: M45.0 Ankylosing spondylitis of multiple sites in spine (principal); M17.0 Bilateral primary osteoarthritis of knee; Z51.81 Encounter for therapeutic drug level monitoring; Z79.620 Long term (current) use of immunosuppressive biologic; Z79.1 Long term (current) use of non-steroidal anti-inflammatories (NSAID); Z79.899 Other long term (current) drug therapy | CPT/HCPCS: 99212 ==

== ENCOUNTER 2024-12-08 14:25 | Outpatient (AMB) | payer OTHER, SELFPAY ==
--- OUTSIDE RECORDS SUMMARY | 2024-12-08 15:05 | XMS_ITS | Encounter Summary ---
Author Organization [facility] Address [address] [place] [address] 7 [place] [address] Care Team Providers Care Manager Sap Name Role Phone Roberto Carlos Montes DDAndrea Primary Care Provider [phone] Encounter Details Date Type Department Care Team [...] on filedocumented in this encounter Care Teams Manager Sap Relationship Specialty Start Date End Date Roberto Carlos Montes DDS [address] [place] [address] PCP - General Dentist 03/02/22 documented as of this encounter
--- OUTSIDE RECORDS SUMMARY | 2024-12-08 15:05 | XMS_ITS | Clinical Summary ---
Author Organization [facility] Address [address] [place] [address] Phone Care Team Providers Care Patient Relations Coordinator Name Role Phone Jama Aquino MD Primary Care Provider [phone] Allergies No known active allergies Medications * This document contains information received from the source organization and may not represent a complete record from that organization. SULFASALAZINE ORAL Take 1,500 mg by mouth 2 (two) times a day. Active montelukast (SINGULAIR) 10 mg tablet Take 10 mg by mouth daily. Active lisinopril (PRINIVIL,ZESTR IL) 10 MG tablet Take 10 mg by mouth daily. Active indomethacin (INDOCIN) 50 MG capsule Take 50 mg by mouth daily. Active indomethacin (INDOCIN) 50 MG capsule Take 100 mg by mouth nightly. Active hydrocortisone (PROCTO-MED HC) 2.5 % rectal cream Active budesonide-form oterol (SYMBICORT) 80-4.5 mcg/actuation inhaler Inhale 2 puffs into the lungs. Active OXcarbazepine (TRILEPTAL) 300 MG tablet Take 3 tablets (900 mg total) by mouth 2 (two) times a day. 60 tablet 04/24/2017 Active QUEtiapine (SEROQUEL) 100 MG tablet Take 1 tablet (100 mg total) by mouth 2 (two) times a day as needed. 30 tablet 04/24/2017 Active QUEtiapine (SEROQUEL) 300 MG tablet Take 2 tablets (600 mg total) by mouth nightly. 60 tablet 04/24/2017 Active trifluoperazine (STELAZINE) 5 MG tablet Take 1 tablet (5 mg total) by mouth 2 (two) times a day. 60 tablet 04/24/2017 Active Active Problems Problem Noted Date Diagnosed Date Bipolar disorder with severe depression 04/12/20 17 Bipolar 1 disorder 04/11/2017 Arthritis 04/11/2017 Glaucoma 04/11/2017 Asthma 04/11/2017 Immunizations Immunization Administration Dates Next Due Influenza, Unspecified Formulation 01/15/2017 Social History Tobacco Use Types Packs/Day Years Used Date Smoking Tobacco: Some Days Cigarettes 1 1 Smokeless Tobacco: Never Tobacco Cessation:Ready to Q uit: No; Counseling Given: Yes Comments:cigars Alcohol Use Standard Drinks/Week Comments Yes 0 (1 standard drink = 0.6 oz pure alcohol) Earlier reports state pt has been in recovery for 6 years. Pt states he has never had issues with alcohol and he drinks only during social situations. Education Answer Date Recorded Are you interested in more education? Not on maddison e 08/31/2022 Are you concerned about learning? Not on file 08/31/2022 No 08/31/2022 No 08/31/2022 Digital Access Answer Date Recorded No 09/29/2022 No 09/29/2022 No 09/29/2022 Reliable internet access at home? Not on file 09/29/2022 Device with a working camera? Not on file Intimate Partner Violence Answer Date R ecorded Are you denied basic needs s uch as food, clothing, or medical care? No 04/07/2023 In the past 12 months have y ou been in a relationship with a person who hurts, threatens, or tries to control you? No 04/07/2023 Are you denied basic needs s uch as food, clothing, or medical care? No 04/07/2023 In the past 12 months have y ou been in a relationship with a person who hurts, threatens, or tries to control you? No 04/07/2023 Sex and Gender Information Value Date Recorded Sex Assigned at Male 05/13/2017 9:38 AM EST Legal Sex Male 6:52 PM EST Gender Identity Male 05/13/2017 9:38 AM EST Sexual Orientation Bisexual 05/13/2017 9: 38 AM EST Last Filed Vital Signs Vital Sign Reading Time Taken Comments Blood Pressure 123/82 04/08/2023 7:41 AM EST Pulse 73 04/08/2023 7:41 AM EST Temperature 36 C (96.8 F) 04/08/2023 7:41 AM EST Respiratory Rate 16 04/08/2023 7:41 AM EST Oxygen Saturation 95% 04/08/2023 7:41 AM EST Inhaled Oxygen Concentration - - Weight 108.9 kg (240 lb) 04/07/2023 8:46 PM EST Height 177.8 cm (5' 10 ) 04/07/2023 8:46 PM EST Body Mass Index 34.44 04/07/2023 8:46 PM EST Plan of Treatment Health Maintenance Due Date Last Done Comments DEPRESSION SCREENING 1985 SMOKING Hx and SMOKELESS TOBACCO SCREENING 1986 HEPATITIS C SCREENING 10/08/1991 HIV ONE-TIME SCREENING (18-6 5 YEARS) 10/08/1991 COLOGUARD 2018 COLONOSCOPY 2018 COLORECTAL CANCER SCREENING 2018 FIT TEST 2018 FOBT 2018 SIGMOIDOSCOPY 2018 VIRTUAL COLONOSCOPY 2018 LIPID PANEL 04/13/2022 04/13/2017 ZOSTER VACCINES (1 of 2) 10/08/2023 COVID-19 VACCINE (4 - 2023-2 5 season) 2024 04/18/2021, 10/05/2020, 09/05/2020 CREATININE LEVEL 04/07/2024 04/07/2023, 04/11/2017 POTASSIUM LEVEL 04/07/2024 04/07/2023, 04/11/2017 PNEUMOCOCCAL VACCINES (50+ years) (3 of 3 - PCV20 or PCV21) 10/31/2025 10/31/2020, 06/12/2016 SCREENING FOR DIABETES 04/07/2026 04/07/2023 Adult Td,Tdap Booster 12/20/2030 12/20/2020 , 02/20/2011, 08/11/1999 HEPATITIS A VACCINES Aged Out No long er eligible based on patient's age to complete this topic HIB VACCINES Aged Out No longer eligi ble based on patient's age to complete this topic MENINGOCOCCAL VACCINES (ACWY) Aged Out No longer eligible based on patient's age to complete this topic MENINGOCOCCAL VACCINES (B) Aged Out N o longer eligible based on patient's age to complete this topic Medical Devices Not on file Procedures Procedure Name Priority Date/Time Associated Diagnosis Comments BASIC METABOLIC PANEL STAT 04/07/2023 11:00 PM EST LIPID PANEL Routine 04/13/2017 6:50 AM EST from Last 3 Months or Most Recently Relevant to Health Maintenance Results * (ABNORMAL) Basic metabolic panel (04/07/2023 11:00 PM EST) SODIUM 136 133 - 146 mmol/L [facility] CHLORIDE 101 96 - 108 mmol/L [facility] POTASSIUM 3.2(L) 3.3 - 5.1 mmol/L [facility] CO2 23 21 - 35 mmol/L [facility] BUN 10 6 - 19 mg/dL [facility] CREATININE 0.70 0.5 - 1.5 mg/dL [facility] GLUCOSE 112(H) 70 - 99 mg/dL [facility] CALCIUM 9.2 8.4 - 10.3 mg/dL [facility] EGFR 113 >59 mL/min/1.7 3m2 [facility] Comment:Estimated glomerular filtration rate calculated using the CKD-EPI refit equation. ANION GAP 15 10 - 20 mmol/L [facility] Blood 04/07/2023 11:0 0 PM EST 04/07/2023 11:05 PM EST us Qian Ortiz PA-C LAB BLOOD ORDERABLES Final Result Performing Organization Address City/State/[facility] Co de Phone Number [address] [phone] * LIPID PANEL (04/13/2017 6:50 AM EST) HDL 40 mg/dL [facility] Comment: Interpretation: Risk Level Males Decreased >45 mg/dL Average 40-45 mg/dL Increased <40 mg/dL CHOLESTEROL 148 0 - 240 mg/dL [facility] TRIGLYCERIDES 152 30 - 160 mg/dL [facility] LDL 78 50 - 129 mg/dL [facility] Comment: LDL levels in terms of risk for coronary heart disease: <100 mg/dL: Optimal 100-129 mg/dL: Near or above optimal 130-159 mg/dL: Borderline high 160-189 mg/dL: High >190 mg/dL: Very High CARDIAC RISK RATIO 3.7 3.4 - 5.0 [facility] Blood 04/13/2017 6:50 AM EST 04/13/2017 1:27 PM EST us Franky Granados MD LAB BLOOD ORDERABLES Final Resul t [facility] [address] [place] [address] from Last 3 Months or Most Recently Relevant to Health Maintenance Insurance MEDICARE PART A & B [facility] ONE CARE MEDICARE REPLACEMENT MEDICARE PART A & B ONE CARE MEDICARE REPLACEMENT MEDICARE PART A & B MEDICARE PART A & B MEDICARE PART A & B [place] [address] MEDICARE PART A & B MEDICARE PART A & B [id number] [place] [address] CARE MEDICARE REPLACEMENT MEDICARE PART A & B [facility] ONE CARE MEDICARE REPLACEMENT MEDICARE PART A & B [facility] ONE CARE MEDICARE REPLACEMENT Advance Directives For more information, please contact: [phone] (9AM - 5PM [facility], Saturday-Saturday) * Full Code (Presumed) (Latest Code Status on File) Date Activated Date Inactivated Comments 04/12/2017 7:36 PM 04/24/2017 8:00 PM Care Teams Patient Relations Coordinator Relationship Specialty Start Date End Date Jama Aquino MD [address] [place] [address] [email or web address] PCP - General Family Medicine 04/07/23 Additional Source Comments The information contained in this document represents components of the legal health record. It is not the complete legal health record.[facility]
--- NOTE | 2024-12-08 15:07 | A.OFFVIS_ITS ---
Vital Signs 12/08/24 15:09 Height 5 ft 10 in Weight 252 lb BMI 36.2 BP 140/74 H Blood Pressure Location Lt brachial Position Sitting Pulse 78 Pulse Source Pulse Oximeter Pulse Oximetry (%) 98 Oxygen Delivery Method Room Air Intake Visit Reasons: f/u Ank SpA Intake Note: Patient last seen by doctor Daisy Schuster on 07/30/24. presents today for Ank SpA follow up and test results. Patient needs new refill on Humira. Allergies dogs,dust,grass,cats Allergy (Mild, Uncoded 12/08/24 15:13) Unknown HPI Comments Details: Patient is a 48-year-old male with asthma, hypertension, polyarticular osteoarthritis (knees) and ankylosing spondylitis here today for follow up Interval History: Patient last seen 07/30/24 with tx - On Humira, sulfasalazine and indomethacin - Doing well - No uveitis - Had steroid injection bilateral knees 12/2023 and still doing well - Changed indomethacin to naproxen due to insurance issues Today, - On Humira, sulfasalazine and naproxen - Doing well - Went to [facility] in September and had leg pain 2/2 muscle spasm due to the walking - Also c/o foot pain follows up with podiatry Rheumatologic History: HLA B27 + Diagnosed 2005 Initial history: This is a 46-year-old male with past medical history of schizoaffective disorder, psoriasis, bipolar disorder and HLA B27 positive spondyloarthropathy who presents for evaluation of spondyloarthropathy. Per patient the condition started around 2005. He was initially started on indomethacin and soon after sulfasalazine was added. Patient stated that Humira was added about 2 years ago with some improvement. He states that his main complaint is right knee pain gets recurrent knee pain and swelling. Has had knee intra-articular steroid injections in the past with some relief. He states that his toes are crooked and they are hammertoes. He was evaluated by bakery machine mechanic and was told reconstruction can be done but he would have to be off his feet for about 3 months which is difficult for the patient to do. Also has history of psoriasis. Usually below his posterior hairline, behind his ears. Currently has a patch in his scalp that is sometimes itchy. Current Rheumatology Medication(s): Humira 40 mg weekly sc Naproxen 500mg bid Sulfasalazine 1500 mg p.o. b.i.d. [facility] Medical History Psoriasis Nicotine dependence Hx of cocaine abuse retirement current use of anticoagulant Ankylosing spondylitis Asthma Hypertension Chronic alcoholism in remission Bipolar 1 disorder Schizoaffective disorder Obesity Surgical History H/O hemorrhoidectomy History of tonsillectomy Hx of colonoscopy Family History Mother Lung cancer Parkinsonism Father Diabetes Social History Household Members Other:: lives alone Housing: Apartment Alcohol intake: former Patient Tobacco Use Status: Former Tobacco user Years Smoked: quit 2017 e-Cigarette/Vaping Use: Never Used Substance Use Type: Crack/Cocaine service: No Current occupational status: disabled Review of Systems Const Details: Review of Systems Constitutional: Denies fever, chills, weight loss ENT: Denies vision changes, eye pain or eye redness, dental caries, dry mouth GI: Denies nausea, vomiting, diarrhea, abdominal pain, change in BM Pulm: Denies SOB, TAVERAS, hemoptysis, wheezing Cards: Denies chest pain, palpitations Skin: Denies Raynaud's, rash, nail changes, photosensitivity, NEON SIGN MECHANIC: Denies headaches, weakness, paresthesias, recurrent falls MSK: as per HPI All other systems reviewed and are unremarkable except noted above Physical Exam Exam Exam: Vital signs reviewed Physical Examination CONSTITUITIONAL Patient alert and cooperative. Well appearing and in no apparent painful distress MSK Hands * Right Hand: Able to make a fist. No swelling or tenderness to palpation of these joints. * Left Hand: Able to make a fist. No swelling or tenderness to palpation of these joints. Herbedens nodes noted 5th DIP Wrists * Right Wrist: Full ROM. 70 degrees of wrist flexion, 80 degrees of wrist extension. No swelling or TTP * Left Wrist: Full ROM. 70 degrees of wrist flexion, 80 degrees of wrist extension. No swelling or TTP Elbows * Right Elbow: Full ROM. No swelling or TTP. No TTP of the medial and lateral epicondyles * Left Elbow: Full ROM. No swelling or TTP. No TTP of the medial and lateral epicondyles Shoulders * Right shoulder: Full ROM. No swelling noted. No TTP of the AC joint, subacromial bursa or posterior shoulder * Left shoulder: Full ROM. No swelling noted. No TTP of the AC joint, subacromial bursa or posterior shoulder Hip bursa: No tenderness to palpation bilaterally Knees * Right knee: Full ROM. No swelling noted. No TTP of the knee joint lie or pes anserine bursa * Left knee: Full ROM. No swelling noted. No TTP of the knee joint lie or pes anserine bursa. * Crepitations felt bilaterally Ankles * Right ankle: Good ankle dorsiflexion and plantar flexion. No swelling. No TTP of the ankle joint * Left ankle: Good ankle dorsiflexion and plantar flexion. No swelling. No TTP of the ankle joint Feet * Right foot: Negative squeeze test * Left foot: Negative squeeze test Tender points? * No tenderness to palpation of the bilateral trapezius, supraspinatus, anterior costochondral junctions, bilateral suboccipital muscle insertions SKIN No rashes Vital Signs: Last Vital Signs Pulse 78 12/08/24 15:09 BP 140/74 H 12/08/24 15:09 Pulse Ox 98 12/08/24 15:09 Oxygen Delivery Method Room Air 12/08/24 15:09 BMI result Body Mass Index 36.2 Results Reviewed Results Reviewed: 11/30/24 [facility] WBC 7.1 Hb 15.8 Plt 216 BUN 5 Cr 0.80 eGFR 107 AST 16 ALT 22 ESR 5 CRP 5 Hepatitis A negative Hepatitis B negative Hepatitis C negative Tb negative Assessment & Plan Assessment & Plan (1) Ankylosing spondylitis: Comment: HLA B27 + Diagnosed 2005 Code(s): M45.9 - Ankylosing spondylitis of unspecified sites in spine Category: Medical Qualifiers: Ankylosing spondylitis location: multiple sites in spine Qualified Code(s): M45.0 - Ankylosing spondylitis of multiple sites in spine Plan: #Ankylosing spondylitis Patient is a 48-year-old male with HLA B27 positive ankylosing spondylitis here today for follow up. Currently in remission with no evidence of inflammation on his blood work Plan - Humira 40mg SC weekly - Sulfasalazine 1500mg bid - Naproxen 500mg bid - RTC 6 months - Labs before visit: CBC, CMP, ESR, CRP (2) Bilateral primary osteoarthritis of knee: Code(s): M17.0 - Bilateral primary osteoarthritis of knee Category: Medical Plan: #Bilateral Knee OA Patient with bilateral knee OA. S/p bilateral knee injection 12/2023 and still doing well overall Recommend light exercises (3) Encounter for monitoring of adalimumab therapy: Code(s): Z51.81 - Encounter for therapeutic drug level monitoring; Z79.620 - terminal make up operator (current) use of immunosuppressive biologic Plan: #Long-term Use of TNF Inhibitors: Humira Discussed with the patient the benefits and risks of TNF inhibitors for the management of the rheumatic condition Benefits include reduce pain, maintenance of remission and reduction of flares as well as ?progression of the disease Risks include injection sites/infusion reactions, serious infections (such as bacterial infections, opportunistic infections), malignancy, delaminating syndromes, autoimmune phenomena, CHF exacerbations, palmar plantar psoriasis and cytopenias Recommended rotating injection sites, and holding medication during and for up to 1 week after resolution of a febrile illness or open skin wound (4) Encounter for monitoring sulfasalazine therapy: Code(s): Z51.81 - Encounter for therapeutic drug level monitoring; Z79.899 - Other assisted (current) drug therapy Plan: #Long-term Use of Sulphasalazine Discussed with patient the risks and benefits of sulfasalazine in the management of the rheumatic condition Benefits include: - Reduced pain, reduce mortality, maintenance of remission then reduction of flares Risks include: - GI upset, hemolysis (especially if G6PD deficiency), eosinophilia, headache, dizziness, rash, elevated LFTs (5) Encounter for long-term (current) use of NSAIDs: Code(s): Z79.1 - terminal make up operator (current) use of non-steroidal anti-inflammatories (NSAID) Plan: #Long-term Use of NSAIDs Discussed with patient the benefits and risk of NSAIDs for managing the rheumatic condition Benefits include: - Reduced the pain, improved mobility, and increased participation in activities Risks include: - GI upset, potential also worsening or formation (especially in patients > 65 years old) Recommended using proton pump inhibitors (PPIs) for the duration of NSAID use to reduce the risk of gastric ulcers Plan I spent 30 minutes reviewing the record and labs, taking a history, examining the patient, discussing the treatment plan, ordering diagnostic work up and documenting in the medical record Coding Level of Care Code Est Pt Level 4 ([id number]) Complex EM visit Add On G2211 Diagnoses Ankylosing spondylitis of multiple sites in spine M45.0 Ankylosing spondylitis location: multiple sites in spine Bilateral primary osteoarthritis of knee M17.0 Encounter for monitoring of adalimumab therapy Z51.81; Z79.620 Encounter for monitoring sulfasalazine therapy Z51.81; Z79.899 Encounter for long-term (current) use of NSAIDs Z79.1
[2024-12-08 15:09] VITALS: BP 140/74; PULSE 78; O2SAT 98; BMI 36.2
== END 2024-12-08 15:44 | disposition home or self-care (01) ==
PROVIDERS: Visit Provider Student in an Organized Health Care Education/Training Program
DX: M45.0 Ankylosing spondylitis of multiple sites in spine (principal); M17.0 Bilateral primary osteoarthritis of knee; Z51.81 Encounter for therapeutic drug level monitoring; Z79.620 Long term (current) use of immunosuppressive biologic; Z79.899 Other long term (current) drug therapy; Z79.1 Long term (current) use of non-steroidal anti-inflammatories (NSAID)
CPT/HCPCS: 99214; G2211

== ENCOUNTER → 2024-12-08 14:25 | Outpatient (BNVA) | payer OTHER, SELFPAY | PROVIDERS: PCP Family Medicine; Visit Provider Student in an Organized Health Care Education/Training Program | DX: M45.0 Ankylosing spondylitis of multiple sites in spine (principal); Z79.899 Other long term (current) drug therapy | CPT/HCPCS: 99212 ==